=== PATIENT | male | born 1930 | race Caucasian/White ===

== ENCOUNTER 2018-05-09 21:21 | Inpatient (IN) | payer MEDICARE, MEDICAID ==
[2018-05-09 22:23] VITALS: BP 123/56
[2018-05-10] MEDS ORDERED: Sodium Chloride 0.9% 1,000 ML IV SCH (00:30)
[2018-05-10 04:45] LABS: MEAN CORPUSCULAR HEMOGLOBIN 26.6 pg (27.0-31.0); MEAN CORPUSCULAR HGB CONC 32.8 pg (28.0-36.0); MEAN PLATELET VOLUME 7.3 fl; PLATELET COUNT 344 Th/cmm (150-400); RED BLOOD COUNT 2.67 Mil/cmm (3.80-5.80); RED CELL DISTRIBUTION WIDTH 16.1 % (11.5-20.0); WHITE BLOOD COUNT 10.3 Th/cmm (4.8-10.8)
[2018-05-10 04:48] LABS: HEMATOCRIT 21.6 % (41.0-60); HEMOGLOBIN 7.1 gm/dL (12-16)
[2018-05-10 05:08] LABS: ALB/GLOB RATIO 0.8 (1.0-1.8); ALBUMIN 2.4 gm/dL (4.2-5.5); ALKALINE PHOSPHATASE 81 U/L (34-104); ANION GAP 10.8 (7.0-16.0); BILIRUBIN,TOTAL 0.2 mg/dL (0.3-1.0); BUN - UREA NITROGEN 19 mg/dL (7-25); CALCIUM SERUM 8.3 mg/dL (8.6-10.3); CARBON DIOXIDE 21.5 mEq/L (21.0-31.0); CHLORIDE 110 mEq/L (98-107); CREATININE - SERUM 0.8 mg/dL (0.7-1.3); GLUCOSE 115 mg/dL (70-105); POTASSIUM SERUM 4.3 mEq/L (3.5-5.1); SGOT 9 U/L (13-39); SGPT/ALT 7 U/L (7-52); SODIUM SERUM 138 mEq/L (136-145); TOTAL PROTEIN,SERUM 5.3 gm/dL (6.0-8.3)
[2018-05-10 05:13] LABS: LYMPHOCYTE 16 % (20-50); NEUTROPHILS 84 % (40-80); PLATELET ESTIMATE ADEQUATE (NORMAL)
--- NOTE | 2018-05-10 09:48 | Diagnostic Imaging Report ---
Portable chest x-ray HISTORY: Shortness of breath The heart is enlarged. No focal pulmonary processes. No hilar or mediastinal abnormalities. Degenerative changes noted in the spine. IMPRESSION: 1. Cardiomegaly 2. No acute focal pulmonary processes
--- NOTE | 2018-05-10 10:55 | Diagnostic Imaging Report ---
Bilateral upper extremity Doppler venous ultrasound exam HISTORY: Pain Sonographic sector images were obtained through the venous systems of both arms. Associated Doppler data was obtained. Exam is technically limited due to patient combativeness and lack of cooperation. The right internal jugular vein could not be evaluated due to overlying bandages. The exam of the right arm demonstrates patency of the right subclavian, axillary, brachial, basilic, cephalic veins. No thrombus. Normal compressibility. The left arm demonstrates patency of the venous system. No thrombus. Normal compressibility and augmentation responses. IMPRESSION: 1. Somewhat limited exam as noted above 2. No definite evidence of thrombophlebitis (see above)
--- NOTE | 2018-05-10 11:18 | History & Physical ---
ADMIT DATE: 05/10/2018 CHIEF COMPLAINT: Confusion and weakness. HISTORY OF PRESENT ILLNESS: The patient is a very nice long time patient of mine admitted to the intensive care unit of [facility] by transfer from [place] in [place]. Just a few days ago, the patient became more confused with low blood pressure in the [facility] and 911 was triggered. The patient subsequently was brought to [place] in [place] as it was close hospital for ____. The patient's troponin was negative and he was ruled out for a cardiac etiology for the hypotension in [place] Int[facility] and Intensive Care physician communicated with me before the patient was transferred here. His echocardiogram revealed ejection fraction of 50% with normal wall motion. The patient complained of no chest pain. Chest x-ray did reveal a probable right middle lobe infiltrate and the patient was started on IVPB antibiotics in [facility]. He required a pressor drip to maintain blood pressure. This is why he was admitted here Intensive Care Unit. The patient normally has mild hypertension yesterday. His blood pressure medication was held in [facility] due to low blood pressure. The patient also received 2 units of blood transfusion in [place] Intensive [facility] Unit. PAST MEDICAL HISTORY: Including pneumonia, COPD, mild Alzheimer disease, peripheral vascular disease, urinary tract infection, sepsis. PAST SURGICAL HISTORY: Denies significant past surgical history. MEDICATIONS: See medication reconciliation list. ALLERGIES: No known drug allergy. FAMILY HISTORY: Noncontributory. SOCIAL HISTORY: The patient smoked before, quit years ago. He is actually to young [place] woman whom they never lived together, but she is ____ area. The patient has no history of alcohol and IV drug abuse. REVIEW OF SYSTEMS: As per HPI. PHYSICAL EXAMINATION: GENERAL: Well-developed, thin male in no acute distress. SKIN: Warm. There is excoriation of the sacral area. VITAL SIGNS: Basically stable while on pressor drip. HEENT: Normocephalic, atraumatic. Pupils equal, round, react to light and accommodation. CHEST: Symmetrical. LUNGS: Few rhonchi in the right middle lobe. HEART: Normal sinus rhythm. S1, S2. ABDOMEN: Benign, soft, nontender. EXTREMITIES: No clubbing, cyanosis, edema. PSYCHIATRIC: Linear and logical. NEUROLOGICAL: Unremarkable. LABORATORY DATA: Ordered. ASSESSMENT AND PLAN: 1. Hypotension: Probably multifactorial, but the patient's white count was not high in [facility] according to the [place] physician, but anyway IV antibiotics were started. 2. Early pneumonia: Continue IVPB antibiotics. 3. Anemia: The patient already received 3 units per blood transfusion in [facility]. We will repeat CBC in the morning. 4. Altered level of consciousness due to metabolic encephalopathy and dementia. 5. Mild Alzheimer disease and recently diagnosed. 6. Weakness: Fall precaution. 7. Peripheral vascular disease: Continue statin and aspirin. 8. History of atrial fibrillation with rate controlled. 9. History of coronary artery disease, status post mild TN over a year ago, but the patient's troponin has been negative x 3 in [place]. 10. Continue ICU care. 11. History of upper extremity DVT: We will repeat duplex ultrasound to see if this has resolved. 12. DVT prophylaxis. [facility]# [id number]
[2018-05-10] MEDS: Ferrous Sulfate 325 MG TAB PO SCH (12:00)
[2018-05-10] MEDS ORDERED: Metoclopramide 5 mg/mL 2mL Vial IVP PRN (12:15)
[2018-05-10] MEDS ORDERED: Morphine Sulfate 2 mg/mL 1mL Syr IVP PRN ×2 (12:22→13:48)
[2018-05-10] MEDS ORDERED: Hydrocodone/APAP 5mg/325mg Tab PO PRN (12:23)
[2018-05-10] MEDS: Hydrocortisone Sodium Succ 100 mg Vial IVP SCH ×2 (17:15→20:17)
[2018-05-10] MEDS: Lactulose 10 Gm/15 mL 30mL UDC PO SCH ×2 (17:16→20:18)
--- NOTE | 2018-05-10 18:30 | Progress Notes ---
DATE: SUBJECTIVE: The patient is confused and requiring soft restraints in the Intensive Care Unit. OBJECTIVE: VITAL SIGNS: Basically stable while on pressor drip. HEENT: Normocephalic, atraumatic. Pupils equal, round, react to light. CHEST: Symmetrical lung. Few wheezing appreciated with rhonchi at right middle lobe. CARDIAC: Normal sinus rhythm. S1, S2. ABDOMEN: Benign, soft, nontender. EXTREMITIES: No clubbing, cyanosis, edema bilateral histologically. NEUROLOGICAL: Unremarkable. LABORATORY DATA: Reviewed, significant for anemia of hemoglobin 7.1, hematocrit 21.6. Platelet is normal. Troponin 0.03, which is normal. Albumin 2.4. ASSESSMENT AND PLAN: 1. Altered level of consciousness due to metabolic encephalopathy and dementia. We will observe closely. 2. Severe anemia. The patient has received blood transfusion 2 units in [place] just 2 days ago. We will repeat 1 unit PRBC and workup in progress. Hematology consultation with ____ is requested and greatly appreciated. 3. Hypotension: Continue on IVPB antibiotics. Blood culture ordered. We will adjust antibiotic accordingly. 4. Early pneumonia: Continue IVPB antibiotics. 5. Weakness: Fall precaution. 6. Anxiety: Ativan p.r.n. Soft restraint as needed. 7. Continue ICU care. 8. DVT prophylaxis. 9. History of recent bilateral upper extremity DVT: I have ordered to repeat duplex ultrasound to see if this has resolved. JOB# [id number]
[2018-05-11 05:05] LABS: HEMOGLOBIN 9.2 gm/dL (12-16); MEAN CELL VOLUME 82.8 fl (80-99); MEAN CORPUSCULAR HEMOGLOBIN 27.2 pg (27.0-31.0); MEAN CORPUSCULAR HGB CONC 32.9 pg (28.0-36.0); MEAN PLATELET VOLUME 7.8 fl; PLATELET COUNT 286 Th/cmm (150-400); RED BLOOD COUNT 3.39 Mil/cmm (3.80-5.80); RED CELL DISTRIBUTION WIDTH 15.6 % (11.5-20.0); WHITE BLOOD COUNT 5.9 Th/cmm (4.8-10.8)
[2018-05-11 05:24] LABS: ALB/GLOB RATIO 0.9 (1.0-1.8); ALBUMIN 2.6 gm/dL (4.2-5.5); ALKALINE PHOSPHATASE 92 U/L (34-104); ANION GAP 10.7 (7.0-16.0); BILIRUBIN,DIRECT 0.13 mg/dL (0.0-0.2); BILIRUBIN,TOTAL 0.4 mg/dL (0.3-1.0); BUN - UREA NITROGEN 15 mg/dL (7-25); CALCIUM SERUM 8.6 mg/dL (8.6-10.3); CARBON DIOXIDE 22.7 mEq/L (21.0-31.0); CHLORIDE 109 mEq/L (98-107); CREATININE - SERUM 0.8 mg/dL (0.7-1.3); GLUCOSE 128 mg/dL (70-105); PHOSPHOROUS 3.9 mg/dL (2.5-5.0); POTASSIUM SERUM 4.4 mEq/L (3.5-5.1); SGOT 13 U/L (13-39); SGPT/ALT 7 U/L (7-52); SODIUM SERUM 138 mEq/L (136-145); TOTAL PROTEIN,SERUM 5.5 gm/dL (6.0-8.3)
[2018-05-11 05:47] LABS: BAND NEUTROPHILE 4 % (0-10); LYMPHOCYTE 15 % (20-50); MONOCYTE 2 % (2-10); NEUTROPHILS 79 % (40-80); PLATELET ESTIMATE ADEQUATE (NORMAL)
[2018-05-11] MEDS: Hydrocortisone Sodium Succ 100 mg Vial IVP SCH ×3 (05:50→20:34)
[2018-05-11 06:06] LABS: RBC RETICULOCYTE COUNT 3.39 Mil/cmm
[2018-05-11 06:07] LABS: ABSOLUTE RETICULOCYTE 20.3 Th/cmm; CORRECTED RETICULOCYTE COUNT 0.4 % (0.5-1.5); RETICULOCYTES % COUNTED 0.6 % (0.5-1.5)
[2018-05-11 06:37] LABS: INR 1.08 (0.5-1.4); PROTHROMBIN TIME (TEST) 11.2 SECONDS (9.5-11.5)
[2018-05-11] MEDS: Lactulose 10 Gm/15 mL 30mL UDC PO SCH ×3 (08:29→20:48)
[2018-05-11] MEDS: Atorvastatin Calcium 10 MG TAB PO SCH (08:29)
[2018-05-11] MEDS: Aspirin 81mg Chewable Tab PO SCH (08:30)
[2018-05-11] MEDS: Magnesium Chloride EC 64mg Tab PO SCH (08:32)
[2018-05-11] MEDS: Sodium Chloride 0.9% 1,000 ML IV SCH ×2 (08:55→20:47)
[2018-05-11] MEDS: Ferrous Sulfate 325 MG TAB PO SCH (09:09)
[2018-05-11] MEDS: Pantoprazole 40 mg EC Tab PO SCH (13:22)
--- NOTE | 2018-05-11 23:39 | Internal Medicine Prog Note ---
Internal Medicine Subjective - Subjective Service Date: 05/11/18 Patient seen and examined:: with staff Patient is:: asleep, eyes closed, in bed Per staff patient has:: no adverse event Internal Medicine Objective - Results Result Diagrams: 05/11/18 04:45 05/11/18 04:45 Recent Labs: Laboratory Last Values WBC 5.9 Th/cmm (4.8-10.8) 05/11/18 04:45 RBC 3.39 Mil/cmm (3.80-5.80) L 05/11/18 04:45 Hgb 9.2 gm/dL (12-16) L 05/11/18 04:45 Hct 28.0 % (40.0-54.0) L 05/11/18 04:45 MCV 82.8 fl (80-99) 05/11/18 04:45 MCH 27.2 pg (27.0-31.0) 05/11/18 04:45 MCHC Differential 32.9 pg (28.0-36.0) 05/11/18 04:45 RDW 15.6 % (11.5-20.0) 05/11/18 04:45 Plt Count 286 Th/cmm (150-400) 05/11/18 04:45 MPV 7.8 fl 05/11/18 04:45 Add Manual Diff YES 05/11/18 04:45 Band Neutrophils % 4 % (0-10) 05/11/18 04:45 Neutrophils (Manual) 79 % (40-80) 05/11/18 04:45 Lymphocytes 15 % (20-50) L 05/11/18 04:45 Monocytes 2 % (2-10) 05/11/18 04:45 Platelet Estimate ADEQUATE (NORMAL) 05/11/18 04:45 Total Retics Counted 0.6 % (0.5-1.5) 05/11/18 04:45 Absolute Retic 20.3 Th/cmm 05/11/18 04:45 Corrected Retic Count 0.4 % (0.5-1.5) L 05/11/18 04:45 Plt Count 286 Th/cmm (150-750) 05/11/18 06:10 PT 11.2 SECONDS (9.5-11.5) 05/11/18 06:10 INR 1.08 (0.5-1.4) 05/11/18 06:10 PTT (Actin FS) 28.8 SECONDS (26.0-38.0) 05/11/18 06:10 Fibrinogen 348.0 mg/dL (200.0-400.0) 05/11/18 06:10 D-Dimer 979 ng/mL (100-400) H 05/11/18 06:10 Sodium 138 mEq/L (136-145) 05/11/18 04:45 Potassium 4.4 mEq/L (3.5-5.1) 05/11/18 04:45 Chloride 109 mEq/L (98-107) H 05/11/18 04:45 Carbon Dioxide 22.7 mEq/L (21.0-31.0) 05/11/18 04:45 Anion Gap 10.7 (7.0-16.0) 05/11/18 04:45 BUN 15 mg/dL (7-25) 05/11/18 04:45 Creatinine 0.8 mg/dL (0.7-1.3) 05/11/18 04:45 Est GFR ( Amer) TNP 05/11/18 04:45 Est GFR (Non-Af Amer) TNP 05/11/18 04:45 BUN/Creatinine Ratio 18.8 05/11/18 04:45 Glucose 128 mg/dL (70-105) H 05/11/18 04:45 POC Glucose 165 MG/DL (70-105) H 05/09/18 21:42 Calcium 8.6 mg/dL (8.6-10.3) 05/11/18 04:45 Phosphorus 3.9 mg/dL (2.5-5.0) 05/11/18 04:45 Magnesium 2.0 mg/dL (1.9-2.7) 05/11/18 04:45 Total Bilirubin 0.4 mg/dL (0.3-1.0) 05/11/18 04:45 Direct Bilirubin 0.13 mg/dL (0.0-0.2) 05/11/18 04:45 AST 13 U/L (13-39) 05/11/18 04:45 ALT 7 U/L (7-52) 05/11/18 04:45 Alkaline Phosphatase 92 U/L (34-104) 05/11/18 04:45 Troponin I 0.03 ng/mL (0.01-0.05) 05/10/18 04:35 Total Protein 5.5 gm/dL (6.0-8.3) L 05/11/18 04:45 Albumin 2.6 gm/dL (4.2-5.5) L 05/11/18 04:45 Globulin 2.9 gm/dL 05/11/18 04:45 Albumin/Globulin Ratio 0.9 (1.0-1.8) L 05/11/18 04:45 Stool Occult Blood POSITIVE (NEGATIVE) H 05/11/18 19:00 Blood Type A POSITIVE 05/10/18 08:10 Antibody Screen NEGATIVE 05/10/18 08:10 Crossmatch See Detail 05/10/18 08:10 - Physical Exam Vitals and I&O: Vital Signs Temp 97.8 F 05/11/18 19:00 Pulse 84 05/11/18 22:00 Resp 18 05/11/18 22:00 BP 117/45 05/11/18 22:00 Pulse Ox 98 05/11/18 22:00 Intake & Output 05/11/18 05/11/18 05/12/18 06:59 18:59 06:59 Intake Total 899 722 6505 Output Total 300 Balance 195 541 7028 Weight (lbs) 58.258 kg 58.831 kg Intake: Intake, IV Amount 978 519 4016 Piperacillin Sodium/ 200 Tazobact 3.375 gm In Sodium Chloride 0.9% 100 ml @ 100 mls/hr IV Q8HR [facility] Rx#:[id number] Piperacillin Sodium/ 50 Tazobact 3.375 gm In Sodium Chloride 0.9% 50 ml @ 100 mls/hr IV Q8HR [facility] Rx#:[id number] Sodium Chloride 0.9% 1, 1000 000 ml @ 100 mls/hr IV . Q10H [facility] Rx#:[id number] Vancomycin HCl 1.25 gm In 250 Sodium Chloride 0.9% 250 ml @ 165 mls/hr IV Q24H [facility] Rx#:[id number] Oral 420 Output: Urine 300 Other: # Voids 2 3 # Bowel Movements 2 3 Stool Characteristics Soft Liquid Brown Green Weight Source Bedscale Bedscale Active Medications: Current Medications Acetaminophen (Tylenol) 650 mg PO Q4H PRN PRN Reason: Pain Or Fever above 101 Stop: 07/09/18 12:24 Acetaminophen/Hydrocodone Bitart ([place] 5mg/325mg) 1 tab PO Q4H PRN PRN Reason: Pain (Moderate) Stop: 07/09/18 12:22 Amiodarone HCl (Cordarone) 150 mg IV STAT PRN PRN PRN Reason: Cardiac Arrhythmia Stop: 07/09/18 12:26 Aspirin (Aspirin Chewable) 81 mg PO DAILY [facility] Stop: 07/10/18 08:59 Last Admin: 05/11/18 08:30 Dose: 81 mg Atorvastatin Calcium (Lipitor) 10 mg PO DAILY BR[facility]; Protocol Stop: 07/10/18 08:59 Last Admin: 05/11/18 08:29 Dose: 10 mg Atropine Sulfate (Atropine Syringe) 0.5 mg IVP PRN PRN PRN Reason: Cardiac Arrhythmia Stop: 07/09/18 12:34 Donepezil HCl (Aricept) 5 mg PO HS [facility] Stop: 07/09/18 20:59 Last Admin: 05/11/18 20:35 Dose: 5 mg Ferrous Sulfate (Iron) 325 mg PO DAILY [facility] Stop: 07/09/18 11:59 Last Admin: 05/11/18 09:09 Dose: 325 mg Heparin Sodium (Porcine) (Heparin) 5,000 units SUBQ Q12HR [facility] Stop: 07/09/18 20:59 Last Admin: 05/11/18 20:35 Dose: 5,000 units Hydrocortisone Sodium Succinate (Solu-Cortef) 100 mg IVP Q8HR [facility] Stop: 07/09/18 12:59 Last Admin: 05/11/18 20:34 Dose: 100 mg Norepinephrine Bitartrate 8 mg (/ Dextrose) 258 mls @ 0 mls/hr IV TITR PRN; Protocol PRN Reason: To Keep SBP Above 90 Stop: 07/09/18 00:36 Last Titration: 05/10/18 14:15 Dose: 0 mcg/min, 0 mls/hr Sodium Chloride (Nacl 0.9%) 1,000 mls @ 100 mls/hr IV .Q10H [facility] Stop: 07/09/18 12:52 Last Admin: 05/11/18 20:47 Dose: 100 mls/hr Vancomycin HCl 1.25 gm/ Sodium (Chloride) 250 mls @ 165 mls/hr IV Q24H [facility] Stop: 07/09/18 15:59 Last Infusion: 05/11/18 17:33 Dose: Infused Piperacillin Sod/Tazobactam (Sod 3.375 gm/ Sodium Chloride) 50 mls @ 100 mls/ hr IV Q8HR [facility] Stop: 07/09/18 12:59 Last Admin: 05/11/18 20:34 Dose: 100 mls/hr Lactulose (Cephulac) 20 gm PO TID [facility] Stop: 07/09/18 13:59 Last Admin: 05/11/18 20:48 Dose: Not Given Lorazepam (Ativan) 0.5 mg IV Q6HR PRN; Protocol PRN Reason: Agitation Stop: 07/09/18 00:33 Last Admin: 05/10/18 01:35 Dose: 0.5 mg Lorazepam (Ativan) 0.5 mg PO Q6HR PRN; Protocol PRN Reason: Agitation Stop: 07/09/18 12:10 Magnesium Chloride (Slow-Mag) 1 ect PO DAILY [facility] Stop: 07/10/18 08:59 Last Admin: 05/11/18 08:32 Dose: 1 ect Metoclopramide HCl (Reglan) 10 mg IVP Q8HR PRN PRN Reason: Abdominal Pain Stop: 07/09/18 12:14 Miscellaneous (Vancomycin Iv Per Pharmacy) 1 ea MC DAILY [facility] Stop: 07/10/18 08:59 Morphine Sulfate (Morphine) 1 mg IVP Q4H PRN PRN Reason: Severe Pain Stop: 07/09/18 13:47 Ondansetron HCl (Zofran) 4 mg IV Q8H PRN PRN Reason: Nausea / Vomiting Stop: 07/09/18 12:48 Pantoprazole Sodium (Protonix) 40 mg PO DAILY [facility] Stop: 07/10/18 11:44 Last Admin: 05/11/18 13:22 Dose: 40 mg General: lethargic, congested HEENT: NC/AT Neck: Supple, No JVD, No thyromegaly, No LAD Lungs: other (few wheezing bl.) Cardiovascular: other (iregular.) Abdomen: soft, non-tender, non-distended, positive bowel sound Extremities: clear - Procedures Procedures: Procedures Procedure Code Date TRANSFUSE NONAUT RED BLOOD CELLS IN PERIPH VEIN, PERC 43541T0 05/09/18 Internal Medicine Assmt/Plan - Assessment Assessment: sepsis: required Levaphed drip earlier today. Rt Scrotal abscess with drainage: G/s, C&S ordered; Surgical consult appreciated. PNA: IVPB ABX. ALOC: on and off, observe. Anemia: OB +x3; s/p PRBC. Hypotension: better. CAD: s/p GA h/o A. Fib: rate controlled. PVD Nutritional Asmnt/Malnutr-PDOC - Dietary Evaluation Malnutrition Findings (Please click <Entered> for more info): Nutritional Asmnt/Malnutrition Start: 05/10/18 14: 28 Text: Status: Complete Freq: Protocol: Document 05/10/18 14:29 LCLAURYG (Rec: 05/10/18 14:39 LCLAURYG [id number]) Nutritional Asmnt/Malnutrition Patient General Information Nutritional Screening High Risk Diagnosis PNA, hypotension Pertinent Medical Hx/Surgical Hx PNA, COPD, mild alzheimer, PVD , UTI, sepsis Subjective Information Consult received for Tripp score 12. Pt seen resting in bed at time of visit. Per RN, pt is on levophed. pt likes to eat, consumed about 50% of breakfast this morning. Pt took long time to chew food per RN. Current Diet Order/ Nutrition Support cardiac, soft Pertinent Medications Iron, cephulac, piperacillin, nacl 0.9%, vancomycin Pertinent Labs 05/10 Cl 110, glucose 115, Ca 8 .3, alb 2.4 Nutritional Hx/Data Height 1.63 m Height (Calculated Centimeters) 162.6 Current Weight (lbs) 58.967 kg Weight (Calculated Kilograms) 59.0 Weight (Calculated Grams) 43205.0 [place] Body Weight 130 Body Mass Index (BMI) 22.3 Weight Status Approriate GI Symptoms GI Symptoms None Last BM not indicated Difficult in: None Skin Integrity/Comment: scar from old pressure ulcer to sacrum Tripp score 12 Current %PO Fair (50-74%) Estimated Nutritional Goals BEE in Kcals: Using Current wt Calories/Kcals/Kg 27-32 Kcals Calculated 6399-4021 Protein: Using Current wt Protein g/k-1.2 Protein Calculated 59-71 Fluid: ml 1593-1888ml (1ml/kcal) Nutritional Problem 2. Problem Problem increased nutrition needs Etiology increased metabolic demand Signs/Symptoms: dx of PNA 1. Problem Problem altered nutrition relatedl abs Etiology electrolytes imbalance Signs/Symptoms: cl 110, Ca 8.3 Malnutrition Alert Is there a minimum of two criteria No selected? Query Text:Check all the applicable criteria. A minimum of two criteria are recommended for diagnosis of either severe or non-severe malnutrition. Malnutrition Related to Morbid Obesity Malnutrition related to morbid obesity No Intervention/Recommendation Comments 1. Continue with cardiac diet as ordered. Recommend [facility] soft ground diet d/g pt having difficulty of chewing. REENA Trin[place] notified. 2. Monitor PO intake, wt, labs and skin integrity 3. F/U as high risk in 2-3 days, 05/12-05/13 Expected Outcomes/Goals Expected Outcomes/Goals 1. PO intake to meet at least 75% of nutritional needs. 2. Wt stability, skin to remain intact, labs to approach WNL.
[2018-05-12] MEDS: Hydrocortisone Sodium Succ 100 mg Vial IVP SCH ×3 (04:45→20:37)
[2018-05-12 04:53] LABS: HEMATOCRIT 25.6 % (41.0-60); HEMOGLOBIN 8.6 gm/dL (12-16); MEAN CELL VOLUME 81.1 fl (80-99); MEAN CORPUSCULAR HEMOGLOBIN 27.4 pg (27.0-31.0); MEAN CORPUSCULAR HGB CONC 33.8 pg (28.0-36.0); MEAN PLATELET VOLUME 6.9 fl; PLATELET COUNT 332 Th/cmm (150-400); RED BLOOD COUNT 3.15 Mil/cmm (3.80-5.80); RED CELL DISTRIBUTION WIDTH 16.2 % (11.5-20.0); WHITE BLOOD COUNT 8.5 Th/cmm (4.8-10.8)
[2018-05-12 05:14] LABS: ALB/GLOB RATIO 0.9 (1.0-1.8); ALBUMIN 2.3 gm/dL (4.2-5.5); ALKALINE PHOSPHATASE 80 U/L (34-104); ANION GAP 10.7 (7.0-16.0); BILIRUBIN,TOTAL 0.2 mg/dL (0.3-1.0); BUN - UREA NITROGEN 18 mg/dL (7-25); CALCIUM SERUM 8.3 mg/dL (8.6-10.3); CARBON DIOXIDE 21.8 mEq/L (21.0-31.0); CHLORIDE 113 mEq/L (98-107); CREATININE - SERUM 0.9 mg/dL (0.7-1.3); GLUCOSE 137 mg/dL (70-105); POTASSIUM SERUM 4.5 mEq/L (3.5-5.1); SGOT 13 U/L (13-39); SGPT/ALT 10 U/L (7-52); SODIUM SERUM 141 mEq/L (136-145); TOTAL PROTEIN,SERUM 4.9 gm/dL (6.0-8.3)
[2018-05-12 05:25] LABS: LYMPHOCYTE 9 % (20-50); NEUTROPHILS 91 % (40-80); PLATELET ESTIMATE ADEQUATE (NORMAL)
[2018-05-12 07:07] LABS: IRON LC 17 ug/dL (38-169); TIBC (LC) 234 ug/dL (250-450); UIBC 217 ug/dL (111-343)
[2018-05-12] MEDS: Sodium Chloride 0.9% 1,000 ML IV SCH (08:00)
[2018-05-12] MEDS: Magnesium Chloride EC 64mg Tab PO SCH (08:40)
[2018-05-12] MEDS: Atorvastatin Calcium 10 MG TAB PO SCH (08:41)
[2018-05-12] MEDS: Aspirin 81mg Chewable Tab PO SCH (08:41)
[2018-05-12] MEDS: Ferrous Sulfate 325 MG TAB PO SCH (08:41)
[2018-05-12] MEDS: Pantoprazole 40 mg EC Tab PO SCH (08:41)
--- NOTE | 2018-05-12 10:18 | History & Physical ---
ADMIT DATE: 05/12/2018 GASTROENTEROLOGY CONSULTATION REQUESTING PHYSICIAN: Dr. Arben Arriaga REASON FOR CONSULTATION: Anemia with stool OB positivity. HISTORY OF PRESENT ILLNESS: This is an 88-year-old male who is a subacute facility resident, admitted for hypertension and pneumonia. He has underlying dementia. We were asked to see him for anemia and OB positivity. He is a poor historian, but denies any abdominal pain, nausea, vomiting, diarrhea or constipation. There has been no witnessed GI bleeding. It is unclear when he has had a previous endoscopy or colonoscopy. PAST MEDICAL HISTORY: As above. Also notable for hypertension, atrial fibrillation, COPD, muscle weakness, chronic anemia, Alzheimer dementia, hyperlipidemia, and aortic atherosclerosis. He may also have chronic constipation. MEDICATIONS: Here are Tylenol, [place], amiodarone p.r.n., baby aspirin, Lipitor, atropine p.r.n., Aricept, iron once daily, subcutaneous heparin, hydrocortisone IV q.8h., lactulose t.i.d., Ativan p.r.n., Slow-Mag, Reglan p.r.n., IV vancomycin, IV morphine p.r.n., norepinephrine drip as needed, Zofran p.r.n., Protonix once daily, Zosyn and IV fluids. ALLERGIES: No known drug allergies. SOCIAL HISTORY: No recent tobacco, alcohol or drugs. FAMILY HISTORY: Noncontributory. REVIEW OF SYSTEMS: A comprehensive 12-point review of system was conducted and is only positive for those signs and symptoms present in history of present illness. PHYSICAL EXAMINATION: VITAL SIGNS: Temperature of 97.7, blood pressure 109/34, pulse of 66, respirations 12, O2 sat 98% on room air. GENERAL: The patient is a well-developed elderly male who appears awake, in no acute distress. HEENT: Sclerae nonicteric. Oropharynx is clear. CARDIOVASCULAR: Irregular rate, irregular rhythm. Normal S1, S2 with no murmurs. LUNGS: With occasional rhonchi at the base. ABDOMEN: Soft, nontender, nondistended. EXTREMITIES: No clubbing, cyanosis or edema. RECTAL: Deferred. LABORATORY AND IMAGING DATA: WBC 8.5, hemoglobin 8.6, MCV is 81, platelet count is 332, INR is 1.1, creatinine 0.9, iron is 17, percent saturation is 7 which is low. Liver enzymes are normal. Albumin is 2.3. Stool OB is positive x 3. IMPRESSION: 1. Anemia, multifactorial with stool occult blood positivity, rule out upper versus lower gastrointestinal source, could be from peptic ulcer disease, esophagitis, gastritis, angiodysplasia, polyp, neoplasm or hemorrhoids. 2. Recent septic shock with pneumonia, now improved. 3. History of hypertension. 4. History of atrial fibrillation. 5. History of chronic obstructive pulmonary disease. 6. History of dementia. RECOMMENDATIONS: 1. Upper endoscopy and colonoscopy has been offered to the patient, but he refuses, but he may not be a reliable historian or decision maker. We have left a message for the patient's son and await his response regarding previous endoscopic workup and need to do it again if needed. 2. Monitor hemoglobin, transfuse as necessary. 3. Oral diet as tolerated. 4. Protonix. 5. Stool softeners as needed. Thank you, Dr. Arriaga for involving us in the care of your patient. If you have any further questions, please call us. [facility]# [id number]
[2018-05-12] MEDS: Lactulose 10 Gm/15 mL 30mL UDC PO SCH ×3 (11:07→20:09)
[2018-05-12] MEDS: Sodium Ferric Gluconate 125 MG in Sodium Chloride 0.9% 100 ML IV SCH (14:14)
--- NOTE | 2018-05-12 23:44 | Internal Medicine Prog Note ---
Internal Medicine Subjective - Subjective Service Date: 05/12/18 Patient seen and examined:: with staff Patient is:: asleep, eyes closed, in bed Per staff patient has:: no adverse event Internal Medicine Objective - Results Result Diagrams: 05/12/18 04:40 05/12/18 04:40 Recent Labs: Laboratory Last Values WBC 8.5 Th/cmm (4.8-10.8) 05/12/18 04:40 RBC 3.15 Mil/cmm (3.80-5.80) L 05/12/18 04:40 Hgb 8.6 gm/dL (12-16) L 05/12/18 04:40 Hct 25.6 % (41.0-60) L 05/12/18 04:40 MCV 81.1 fl (80-99) 05/12/18 04:40 MCH 27.4 pg (27.0-31.0) 05/12/18 04:40 MCHC Differential 33.8 pg (28.0-36.0) 05/12/18 04:40 RDW 16.2 % (11.5-20.0) 05/12/18 04:40 Plt Count 332 Th/cmm (150-400) 05/12/18 04:40 MPV 6.9 fl 05/12/18 04:40 Add Manual Diff YES 05/12/18 04:40 Band Neutrophils % 4 % (0-10) 05/11/18 04:45 Neutrophils (Manual) 91 % (40-80) H 05/12/18 04:40 Lymphocytes 9 % (20-50) L 05/12/18 04:40 Monocytes 2 % (2-10) 05/11/18 04:45 Platelet Estimate ADEQUATE (NORMAL) 05/12/18 04:40 Total Retics Counted 0.6 % (0.5-1.5) 05/11/18 04:45 Absolute Retic 20.3 Th/cmm 05/11/18 04:45 Corrected Retic Count 0.4 % (0.5-1.5) L 05/11/18 04:45 Plt Count 286 Th/cmm (150-750) 05/11/18 06:10 PT 11.2 SECONDS (9.5-11.5) 05/11/18 06:10 INR 1.08 (0.5-1.4) 05/11/18 06:10 PTT (Actin FS) 28.8 SECONDS (26.0-38.0) 05/11/18 06:10 Fibrinogen 348.0 mg/dL (200.0-400.0) 05/11/18 06:10 D-Dimer 979 ng/mL (100-400) H 05/11/18 06:10 Sodium 141 mEq/L (136-145) 05/12/18 04:40 Potassium 4.5 mEq/L (3.5-5.1) 05/12/18 04:40 Chloride 113 mEq/L (98-107) H 05/12/18 04:40 Carbon Dioxide 21.8 mEq/L (21.0-31.0) 05/12/18 04:40 Anion Gap 10.7 (7.0-16.0) 05/12/18 04:40 BUN 18 mg/dL (7-25) 05/12/18 04:40 Creatinine 0.9 mg/dL (0.7-1.3) 05/12/18 04:40 Est GFR ( Amer) TNP 05/12/18 04:40 Est GFR (Non-Af Amer) TNP 05/12/18 04:40 BUN/Creatinine Ratio 20.0 05/12/18 04:40 Glucose 137 mg/dL (70-105) H 05/12/18 04:40 POC Glucose 165 MG/DL (70-105) H 05/09/18 21:42 Calcium 8.3 mg/dL (8.6-10.3) L 05/12/18 04:40 Phosphorus 3.9 mg/dL (2.5-5.0) 05/11/18 04:45 Magnesium 2.0 mg/dL (1.9-2.7) 05/11/18 04:45 Iron 17 ug/dL (38-169) L 05/11/18 04:45 TIBC 234 ug/dL (250-450) L 05/11/18 04:45 Iron Saturation 7 % (15-55) L 05/11/18 04:45 Unsaturated IBC 217 ug/dL (111-343) 05/11/18 04:45 Ferritin 76 ng/mL (30-400) 05/11/18 04:45 Total Bilirubin 0.2 mg/dL (0.3-1.0) L 05/12/18 04:40 Direct Bilirubin 0.13 mg/dL (0.0-0.2) 05/11/18 04:45 AST 13 U/L (13-39) 05/12/18 04:40 ALT 10 U/L (7-52) 05/12/18 04:40 Alkaline Phosphatase 80 U/L (34-104) 05/12/18 04:40 Troponin I 0.03 ng/mL (0.01-0.05) 05/10/18 04:35 Total Protein 4.9 gm/dL (6.0-8.3) L 05/12/18 04:40 Albumin 2.3 gm/dL (4.2-5.5) L 05/12/18 04:40 Globulin 2.6 gm/dL 05/12/18 04:40 Albumin/Globulin Ratio 0.9 (1.0-1.8) L 05/12/18 04:40 Vitamin B12 982 pg/mL (232-1245) 05/11/18 04:45 Folic Acid 12.7 ng/mL (>3.0) 05/11/18 04:45 Stool Occult Blood POSITIVE (NEGATIVE) H 05/11/18 19:00 Vancomycin Trough 14.1 ug/mL (5-10) H 05/12/18 15:10 Blood Type A POSITIVE 05/10/18 08:10 Antibody Screen NEGATIVE 05/10/18 08:10 Crossmatch See Detail 05/10/18 08:10 - Physical Exam Vitals and I&O: Vital Signs Temp 98.6 F 05/12/18 20:00 Pulse 90 05/12/18 20:00 Resp 18 05/12/18 20:00 BP 93/48 05/12/18 20:00 Pulse Ox 96 05/12/18 20:00 Intake & Output 05/12/18 05/12/18 05/13/18 06:59 18:59 06:59 Intake Total 2500 410 50 Output Total 400 Balance 2500 10 50 Weight (lbs) 58.967 kg 58.967 kg Intake: Intake, IV Amount 2100 410 50 Piperacillin Sodium/ 100 50 50 Tazobact 3.375 gm In Sodium Chloride 0.9% 50 ml @ 100 mls/hr IV Q8HR [facility] Rx#:[id number] Sodium Chloride 0.9% 1, 2000 000 ml @ 100 mls/hr IV . Q10H [facility] Rx#:[id number] Sodium Ferric Gluconate 110 125 mg In Sodium Chloride 0.9% 100 ml @ 100 mls/hr IV DAILY [facility] Rx#: [id number] Vancomycin HCl 1.25 gm In 250 Sodium Chloride 0.9% 250 ml @ 165 mls/hr IV Q24H [facility] Rx#:[id number] Oral 400 Output: Urine 400 Other: # Voids 3 # Bowel Movements 2 1 Stool Characteristics Soft Soft Brown Brown Green Green Weight Source Bedscale Bedscale Active Medications: Current Medications Acetaminophen (Tylenol) 650 mg PO Q4H PRN PRN Reason: Pain Or Fever above 101 Stop: 07/09/18 12:24 Acetaminophen/Hydrocodone Bitart ([place] 5mg/325mg) 1 tab PO Q4H PRN PRN Reason: Pain (Moderate) Stop: 07/09/18 12:22 Amiodarone HCl (Cordarone) 150 mg IV STAT PRN PRN PRN Reason: Cardiac Arrhythmia Stop: 07/09/18 12:26 Aspirin (Aspirin Chewable) 81 mg PO DAILY [facility] Stop: 07/10/18 08:59 Last Admin: 05/12/18 08:41 Dose: 81 mg Atorvastatin Calcium (Lipitor) 10 mg PO DAILY [facility]; Protocol Stop: 07/10/18 08:59 Last Admin: 05/12/18 08:41 Dose: 10 mg Atropine Sulfate (Atropine Syringe) 0.5 mg IVP PRN PRN PRN Reason: Cardiac Arrhythmia Stop: 07/09/18 12:34 Donepezil HCl (Aricept) 5 mg PO HS [facility] Stop: 07/09/18 20:59 Last Admin: 05/12/18 20:37 Dose: 5 mg Ferrous Sulfate (Iron) 325 mg PO DAILY [facility] Stop: 07/09/18 11:59 Last Admin: 05/12/18 08:41 Dose: 325 mg Heparin Sodium (Porcine) (Heparin) 5,000 units SUBQ Q12HR [facility] Stop: 07/09/18 20:59 Last Admin: 05/12/18 20:35 Dose: 5,000 units Hydrocortisone Sodium Succinate (Solu-Cortef) 100 mg IVP Q8HR [facility] Stop: 07/09/18 12:59 Last Admin: 05/12/18 20:37 Dose: 100 mg Norepinephrine Bitartrate 8 mg (/ Dextrose) 258 mls @ 0 mls/hr IV TITR PRN; Protocol PRN Reason: To Keep SBP Above 90 Stop: 07/09/18 00:36 Last Titration: 05/10/18 14:15 Dose: 0 mcg/min, 0 mls/hr Sodium Chloride (Nacl 0.9%) 1,000 mls @ 100 mls/hr IV .Q10H [facility] Stop: 07/09/18 12:52 Last Admin: 05/12/18 08:00 Dose: 100 mls/hr Vancomycin HCl 1.25 gm/ Sodium (Chloride) 250 mls @ 165 mls/hr IV Q24H [facility] Stop: 07/09/18 15:59 Last Infusion: 05/12/18 17:30 Dose: Infused Piperacillin Sod/Tazobactam (Sod 3.375 gm/ Sodium Chloride) 50 mls @ 100 mls/ hr IV Q8HR [facility] Stop: 07/09/18 12:59 Last Infusion: 05/12/18 21:10 Dose: Infused Ferric Sodium Gluconate Complex 125 mg/ Sodium Chloride 110 mls @ 100 mls/hr IV DAILY [facility] Stop: 07/11/18 13:29 Last Infusion: 05/12/18 15:20 Dose: Infused Lactulose (Cephulac) 20 gm PO TID [facility] Stop: 07/09/18 13:59 Last Admin: 05/12/18 20:09 Dose: Not Given Lorazepam (Ativan) 0.5 mg IV Q6HR PRN; Protocol PRN Reason: Agitation Stop: 07/09/18 00:33 Last Admin: 05/10/18 01:35 Dose: 0.5 mg Lorazepam (Ativan) 0.5 mg PO Q6HR PRN; Protocol PRN Reason: Agitation Stop: 07/09/18 12:10 Magnesium Chloride (Slow-Mag) 1 ect PO DAILY [facility] Stop: 07/10/18 08:59 Last Admin: 05/12/18 08:40 Dose: 1 ect Metoclopramide HCl (Reglan) 10 mg IVP Q8HR PRN PRN Reason: Abdominal Pain Stop: 07/09/18 12:14 Miscellaneous (Vancomycin Iv Per Pharmacy) 1 ea [facility] DAILY [facility] Stop: 07/10/18 08:59 Morphine Sulfate (Morphine) 1 mg IVP Q4H PRN PRN Reason: Severe Pain Stop: 07/09/18 13:47 Ondansetron HCl (Zofran) 4 mg IV Q8H PRN PRN Reason: Nausea / Vomiting Stop: 07/09/18 12:48 Pantoprazole Sodium (Protonix) 40 mg PO DAILY [facility] Stop: 07/10/18 11:44 Last Admin: 05/12/18 08:41 Dose: 40 mg General: lethargic, congested HEENT: NC/AT Neck: Supple, No JVD, No thyromegaly, No LAD Lungs: other (few wheezing bl.) Cardiovascular: other (iregular.) Abdomen: soft, non-tender, non-distended, positive bowel sound Extremities: clear - Procedures Procedures: Procedures Procedure Code Date TRANSFUSE NONAUT RED BLOOD CELLS IN PERIPH VEIN, [facility] 21285O7 05/09/18 Internal Medicine Assmt/Plan - Assessment Assessment: Hypotension: close monitoring in ICU. sepsis: required Levaphed drip earlier today. Rt Scrotal abscess with drainage: G/s, C&S ordered; Surgical consult appreciated. PNA: IVPB ABX. ALOC: on and off, observe. Anemia: OB +x3; s/p PRBC. CAD: s/p [place] h/o A. Fib: rate controlled. PVD Nutritional Asmnt/Malnutr-PDOC - Dietary Evaluation Malnutrition Findings (Please click <Entered> for more info): Nutritional Asmnt/Malnutrition Start: 05/10/18 14: 28 Text: Status: Complete Freq: Protocol: Document 05/10/18 14:29 LCHENG (Rec: 05/10/18 14:39 LAURY [id number]) Nutritional Asmnt/Malnutrition Patient General Information Nutritional Screening High Risk Diagnosis PNA, hypotension Pertinent Medical Hx/Surgical Hx PNA, COPD, mild alzheimer, PVD , UTI, sepsis Subjective Information Consult received for Tripp score 12. Pt seen resting in bed at time of visit. Per RN, pt is on levophed. pt likes to eat, consumed about 50% of breakfast this morning. Pt took long time to chew food per RN. 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 Problem Problem increased nutrition needs Etiology increased metabolic demand Signs/Symptoms: dx of PNA 1. Problem Problem altered nutrition relatedl abs Etiology electrolytes imbalance Signs/Symptoms: cl 110, Ca 8.3 Malnutrition Alert Is there a minimum of two criteria No selected? Query Text:Check all the applicable criteria. A minimum of two criteria are recommended for diagnosis of either severe or non-severe malnutrition. Malnutrition Related to Morbid Obesity Malnutrition related to morbid obesity No Intervention/Recommendation Comments 1. Continue with cardiac diet as ordered. Recommend mech soft ground diet d/g pt having difficulty of chewing. REENA Trinidad notified. 2. Monitor PO intake, wt, labs and skin integrity 3. F/U as high risk in 2-3 days, 05/12-05/13 Expected Outcomes/Goals Expected Outcomes/Goals 1. PO intake to meet at least 75% of nutritional needs. 2. Wt stability, skin to remain intact, labs to approach WNL.
[2018-05-13] MEDS: Hydrocortisone Sodium Succ 100 mg Vial IVP SCH ×3 (04:42→21:20)
[2018-05-13 05:55] LABS: HEMATOCRIT 26.3 % (41.0-60); HEMOGLOBIN 8.6 gm/dL (12-16); MEAN CELL VOLUME 82.6 fl (80-99); MEAN CORPUSCULAR HEMOGLOBIN 27.1 pg (27.0-31.0); MEAN CORPUSCULAR HGB CONC 32.8 pg (28.0-36.0); MEAN PLATELET VOLUME 7.3 fl; PLATELET COUNT 325 Th/cmm (150-400); RED BLOOD COUNT 3.19 Mil/cmm (3.80-5.80); RED CELL DISTRIBUTION WIDTH 16.5 % (11.5-20.0); WHITE BLOOD COUNT 9.2 Th/cmm (4.8-10.8)
[2018-05-13 06:19] LABS: ANION GAP 10.2 (7.0-16.0); BUN - UREA NITROGEN 20 mg/dL (7-25); CARBON DIOXIDE 20.5 mEq/L (21.0-31.0); CHLORIDE 110 mEq/L (98-107); CREATININE - SERUM 0.9 mg/dL (0.7-1.3); GLUCOSE 116 mg/dL (70-105); POTASSIUM SERUM 3.7 mEq/L (3.5-5.1); SODIUM SERUM 137 mEq/L (136-145)
[2018-05-13 07:39] LABS: NEUTROPHILS 86 % (40-80)
[2018-05-13 07:40] LABS: BAND NEUTROPHILE 5 % (0-10); BASOPHIL 0 % (0-3); EOSINOPHIL 0 % (0-5); LYMPHOCYTE 8 % (20-50); MONOCYTE 1 % (2-10); PLATELET ESTIMATE ADEQUATE (NORMAL)
[2018-05-13 08:49] LABS: ABSOLUTE RETICULOCYTE 38.3 Th/cmm; CORRECTED RETICULOCYTE COUNT 0.7 % (0.5-1.5); HEMATOCRIT 26.3 % (40.0-54.0); RBC RETICULOCYTE COUNT 3.19 Mil/cmm; RETICULOCYTES % COUNTED 1.2 % (0.5-1.5)
[2018-05-13] MEDS: Lactulose 10 Gm/15 mL 30mL UDC PO SCH ×3 (09:15→21:20)
[2018-05-13] MEDS: Magnesium Chloride EC 64mg Tab PO SCH (09:20)
[2018-05-13] MEDS: Pantoprazole 40 mg EC Tab PO SCH (09:20)
[2018-05-13] MEDS: Aspirin 81mg Chewable Tab PO SCH (09:20)
[2018-05-13] MEDS: Ferrous Sulfate 325 MG TAB PO SCH (09:20)
[2018-05-13] MEDS: Atorvastatin Calcium 10 MG TAB PO SCH (09:21)
--- NOTE | 2018-05-13 09:29 | GI Progress Note ---
Subjective - Review of Systems Service Date: 05/13/18 Subjective: EVENTS NOTED. Objective - Results Result Diagrams: 05/13/18 05:40 05/13/18 05:40 Recent Labs: Laboratory Last Values WBC 9.2 Th/cmm (4.8-10.8) 05/13/18 05:40 RBC 3.19 Mil/cmm (3.80-5.80) L 05/13/18 05:40 Hgb 8.6 gm/dL (12-16) L 05/13/18 05:40 Hct 26.3 % (40.0-54.0) L 05/13/18 05:40 MCV 82.6 fl (80-99) 05/13/18 05:40 MCH 27.1 pg (27.0-31.0) 05/13/18 05:40 MCHC Differential 32.8 pg (28.0-36.0) 05/13/18 05:40 RDW 16.5 % (11.5-20.0) 05/13/18 05:40 Plt Count 325 Th/cmm (150-400) 05/13/18 05:40 MPV 7.3 fl 05/13/18 05:40 Add Manual Diff YES 05/13/18 05:40 Band Neutrophils % 5 % (0-10) 05/13/18 05:40 Neutrophils (Manual) 86 % (40-80) H 05/13/18 05:40 Lymphocytes 8 % (20-50) L 05/13/18 05:40 Monocytes 1 % (2-10) L 05/13/18 05:40 Eosinophils 0 % (0-5) 05/13/18 05:40 Basophils 0 % (0-3) 05/13/18 05:40 Platelet Estimate ADEQUATE (NORMAL) 05/13/18 05:40 Total Retics Counted 1.2 % (0.5-1.5) 05/13/18 05:40 Absolute Retic 38.3 Th/cmm 05/13/18 05:40 Corrected Retic Count 0.7 % (0.5-1.5) 05/13/18 05:40 Plt Count 286 Th/cmm (150-750) 05/11/18 06:10 PT 11.2 SECONDS (9.5-11.5) 05/11/18 06:10 INR 1.08 (0.5-1.4) 05/11/18 06:10 PTT (Actin FS) 28.8 SECONDS (26.0-38.0) 05/11/18 06:10 Fibrinogen 348.0 mg/dL (200.0-400.0) 05/11/18 06:10 D-Dimer 979 ng/mL (100-400) H 05/11/18 06:10 Sodium 137 mEq/L (136-145) 05/13/18 05:40 Potassium 3.7 mEq/L (3.5-5.1) 05/13/18 05:40 Chloride 110 mEq/L (98-107) H 05/13/18 05:40 Carbon Dioxide 20.5 mEq/L (21.0-31.0) L 05/13/18 05:40 Anion Gap 10.2 (7.0-16.0) 05/13/18 05:40 BUN 20 mg/dL (7-25) 05/13/18 05:40 Creatinine 0.9 mg/dL (0.7-1.3) 05/13/18 05:40 Est GFR ( Amer) TNP 05/13/18 05:40 Est GFR (Non-Af Amer) TNP 05/13/18 05:40 BUN/Creatinine Ratio 22.2 05/13/18 05:40 Glucose 116 mg/dL (70-105) H 05/13/18 05:40 POC Glucose 165 MG/DL (70-105) H 05/09/18 21:42 Calcium 8.0 mg/dL (8.6-10.3) L 05/13/18 05:40 Phosphorus 3.9 mg/dL (2.5-5.0) 05/11/18 04:45 Magnesium 2.0 mg/dL (1.9-2.7) 05/11/18 04:45 Iron 17 ug/dL (38-169) L 05/11/18 04:45 TIBC 234 ug/dL (250-450) L 05/11/18 04:45 Iron Saturation 7 % (15-55) L 05/11/18 04:45 Unsaturated IBC 217 ug/dL (111-343) 05/11/18 04:45 Ferritin 76 ng/mL (30-400) 05/11/18 04:45 Total Bilirubin 0.2 mg/dL (0.3-1.0) L 05/12/18 04:40 Direct Bilirubin 0.13 mg/dL (0.0-0.2) 05/11/18 04:45 AST 13 U/L (13-39) 05/12/18 04:40 ALT 10 U/L (7-52) 05/12/18 04:40 Alkaline Phosphatase 80 U/L (34-104) 05/12/18 04:40 Troponin I 0.03 ng/mL (0.01-0.05) 05/10/18 04:35 Total Protein 4.9 gm/dL (6.0-8.3) L 05/12/18 04:40 Albumin 2.3 gm/dL (4.2-5.5) L 05/12/18 04:40 Globulin 2.6 gm/dL 05/12/18 04:40 Albumin/Globulin Ratio 0.9 (1.0-1.8) L 05/12/18 04:40 Vitamin B12 982 pg/mL (232-1245) 05/11/18 04:45 Folic Acid 12.7 ng/mL (>3.0) 05/11/18 04:45 Stool Occult Blood POSITIVE (NEGATIVE) H 05/11/18 19:00 Vancomycin Trough 14.1 ug/mL (5-10) H 05/12/18 15:10 Blood Type A POSITIVE 05/10/18 08:10 Antibody Screen NEGATIVE 05/10/18 08:10 Crossmatch See Detail 05/10/18 08:10 - Physical Exam Vitals and I&O: Vital Signs Temp 98.5 F 05/13/18 04:00 Pulse 60 05/13/18 06:00 Resp 16 05/13/18 06:00 BP 104/60 05/13/18 06:00 Pulse Ox 98 05/13/18 06:00 Intake & Output 05/12/18 05/13/18 05/13/18 18:59 06:59 18:59 Intake Total 410 500 Output Total 400 451 Balance 10 49 Weight (lbs) 58.967 kg 58.967 kg Intake: Intake, IV Amount 410 100 Piperacillin Sodium/ 50 100 Tazobact 3.375 gm In Sodium Chloride 0.9% 50 ml @ 100 mls/hr IV Q8HR [facility] Rx#:[id number] Sodium Ferric Gluconate 110 125 mg In Sodium Chloride 0.9% 100 ml @ 100 mls/hr IV DAILY [facility] Rx#: [id number] Vancomycin HCl 1.25 gm In 250 Sodium Chloride 0.9% 250 ml @ 165 mls/hr IV Q24H [facility] Rx#:[id number] Oral 400 Output: Urine 400 450 Stool 1 Other: # Bowel Movements 1 Stool Characteristics Soft Soft Brown Brown Green Green Weight Source Bedscale Bedscale Active Medications: Current Medications Acetaminophen (Tylenol) 650 mg PO Q4H PRN PRN Reason: Pain Or Fever above 101 Stop: 07/09/18 12:24 Acetaminophen/Hydrocodone Bitart ([place] 5mg/325mg) 1 tab PO Q4H PRN PRN Reason: Pain (Moderate) Stop: 07/09/18 12:22 Amiodarone HCl (Cordarone) 150 mg IV STAT PRN PRN PRN Reason: Cardiac Arrhythmia Stop: 07/09/18 12:26 Aspirin (Aspirin Chewable) 81 mg PO DAILY [facility] Stop: 07/10/18 08:59 Last Admin: 05/12/18 08:41 Dose: 81 mg Atorvastatin Calcium (Lipitor) 10 mg PO DAILY [facility]; Protocol Stop: 07/10/18 08:59 Last Admin: 05/12/18 08:41 Dose: 10 mg Atropine Sulfate (Atropine Syringe) 0.5 mg IVP PRN PRN PRN Reason: Cardiac Arrhythmia Stop: 07/09/18 12:34 Donepezil HCl (Aricept) 5 mg PO HS [facility] Stop: 07/09/18 20:59 Last Admin: 05/12/18 20:37 Dose: 5 mg Ferrous Sulfate (Iron) 325 mg PO DAILY [facility] Stop: 07/09/18 11:59 Last Admin: 05/12/18 08:41 Dose: 325 mg Heparin Sodium (Porcine) (Heparin) 5,000 units SUBQ Q12HR [facility] Stop: 07/09/18 20:59 Last Admin: 05/12/18 20:35 Dose: 5,000 units Hydrocortisone Sodium Succinate (Solu-Cortef) 100 mg IVP Q8HR [facility] Stop: 07/09/18 12:59 Last Admin: 05/13/18 04:42 Dose: 100 mg Norepinephrine Bitartrate 8 mg (/ Dextrose) 258 mls @ 0 mls/hr IV TITR PRN; Protocol PRN Reason: To Keep SBP Above 90 Stop: 07/09/18 00:36 Last Titration: 05/10/18 14:15 Dose: 0 mcg/min, 0 mls/hr Sodium Chloride (Nacl 0.9%) 1,000 mls @ 100 mls/hr IV .Q10H [facility] Stop: 07/09/18 12:52 Last Admin: 05/12/18 08:00 Dose: 100 mls/hr Vancomycin HCl 1.25 gm/ Sodium (Chloride) 250 mls @ 165 mls/hr IV Q24H [facility] Stop: 07/09/18 15:59 Last Infusion: 05/12/18 17:30 Dose: Infused Piperacillin Sod/Tazobactam (Sod 3.375 gm/ Sodium Chloride) 50 mls @ 100 mls/ hr IV Q8HR [facility] Stop: 07/09/18 12:59 Last Infusion: 05/13/18 05:15 Dose: Infused Ferric Sodium Gluconate Complex 125 mg/ Sodium Chloride 110 mls @ 100 mls/hr IV DAILY [facility] Stop: 07/11/18 13:29 Last Infusion: 05/12/18 15:20 Dose: Infused Lactulose (Cephulac) 20 gm PO TID [facility] Stop: 07/09/18 13:59 Last Admin: 05/12/18 20:09 Dose: Not Given Lorazepam (Ativan) 0.5 mg IV Q6HR PRN; Protocol PRN Reason: Agitation Stop: 07/09/18 00:33 Last Admin: 05/10/18 01:35 Dose: 0.5 mg Lorazepam (Ativan) 0.5 mg PO Q6HR PRN; Protocol PRN Reason: Agitation Stop: 07/09/18 12:10 Magnesium Chloride (Slow-Mag) 1 ect PO DAILY [facility] Stop: 07/10/18 08:59 Last Admin: 05/12/18 08:40 Dose: 1 ect Metoclopramide HCl (Reglan) 10 mg IVP Q8HR PRN PRN Reason: Abdominal Pain Stop: 07/09/18 12:14 Miscellaneous (Vancomycin Iv Per Pharmacy) 1 ea [facility] DAILY [facility] Stop: 07/10/18 08:59 Morphine Sulfate (Morphine) 1 mg IVP Q4H PRN PRN Reason: Severe Pain Stop: 07/09/18 13:47 Ondansetron HCl (Zofran) 4 mg IV Q8H PRN PRN Reason: Nausea / Vomiting Stop: 07/09/18 12:48 Pantoprazole Sodium (Protonix) 40 mg PO DAILY [facility] Stop: 07/10/18 11:44 Last Admin: 05/12/18 08:41 Dose: 40 mg General: No acute distress HEENT: Atraumatic Neck: Supple Cardiovascular: Regular rate Lungs: Clear to auscultation Abdomen: Bowel sounds, Soft, no Tender - Procedures Procedures: Procedures Procedure Code Date TRANSFUSE NONAUT RED BLOOD CELLS IN PERIPH VEIN, [facility] 64961N4 05/09/18 Assessment/Plan - Assessment Assessment: 1. ANEMIA, MULTIFACTORIAL. 2. FOBT POSITIVE. 3. DEMENTIA. 4. H/O A FIB, HTN. - Plan Plan: 1. CONSIDER EGD AND COLONOSCOPY IF FAMILY CONSENTS - PATIENT REFUSES. 2. MONITOR HGB; TRANSFUSE PRN. 3. DIET ANAID.
[2018-05-13] MEDS: Sodium Chloride 0.9% 1,000 ML IV SCH ×3 (09:36→22:30)
[2018-05-13] MEDS: Sodium Ferric Gluconate 125 MG in Sodium Chloride 0.9% 100 ML IV SCH (09:36)
--- NOTE | 2018-05-13 09:57 | General Progress Note ---
Subjective - Review of Systems Service Date: 05/13/18 Events since last encounter: consult dictated no active GI bleeding now for EGC and colonoscopy in AM Objective - Results Result Diagrams: 05/13/18 05:40 05/13/18 05:40 Recent Labs: Laboratory Last Values WBC 9.2 Th/cmm (4.8-10.8) 05/13/18 05:40 RBC 3.19 Mil/cmm (3.80-5.80) L 05/13/18 05:40 Hgb 8.6 gm/dL (12-16) L 05/13/18 05:40 Hct 26.3 % (40.0-54.0) L 05/13/18 05:40 MCV 82.6 fl (80-99) 05/13/18 05:40 MCH 27.1 pg (27.0-31.0) 05/13/18 05:40 MCHC Differential 32.8 pg (28.0-36.0) 05/13/18 05:40 RDW 16.5 % (11.5-20.0) 05/13/18 05:40 Plt Count 325 Th/cmm (150-400) 05/13/18 05:40 MPV 7.3 fl 05/13/18 05:40 Add Manual Diff YES 05/13/18 05:40 Band Neutrophils % 5 % (0-10) 05/13/18 05:40 Neutrophils (Manual) 86 % (40-80) H 05/13/18 05:40 Lymphocytes 8 % (20-50) L 05/13/18 05:40 Monocytes 1 % (2-10) L 05/13/18 05:40 Eosinophils 0 % (0-5) 05/13/18 05:40 Basophils 0 % (0-3) 05/13/18 05:40 Platelet Estimate ADEQUATE (NORMAL) 05/13/18 05:40 Total Retics Counted 1.2 % (0.5-1.5) 05/13/18 05:40 Absolute Retic 38.3 Th/cmm 05/13/18 05:40 Corrected Retic Count 0.7 % (0.5-1.5) 05/13/18 05:40 Plt Count 286 Th/cmm (150-750) 05/11/18 06:10 PT 11.2 SECONDS (9.5-11.5) 05/11/18 06:10 INR 1.08 (0.5-1.4) 05/11/18 06:10 PTT (Actin FS) 28.8 SECONDS (26.0-38.0) 05/11/18 06:10 Fibrinogen 348.0 mg/dL (200.0-400.0) 05/11/18 06:10 D-Dimer 979 ng/mL (100-400) H 05/11/18 06:10 Sodium 137 mEq/L (136-145) 05/13/18 05:40 Potassium 3.7 mEq/L (3.5-5.1) 05/13/18 05:40 Chloride 110 mEq/L (98-107) H 05/13/18 05:40 Carbon Dioxide 20.5 mEq/L (21.0-31.0) L 05/13/18 05:40 Anion Gap 10.2 (7.0-16.0) 05/13/18 05:40 BUN 20 mg/dL (7-25) 05/13/18 05:40 Creatinine 0.9 mg/dL (0.7-1.3) 05/13/18 05:40 Est GFR ( Amer) TNP 05/13/18 05:40 Est GFR (Non-Af Amer) TNP 05/13/18 05:40 BUN/Creatinine Ratio 22.2 05/13/18 05:40 Glucose 116 mg/dL (70-105) H 05/13/18 05:40 POC Glucose 165 MG/DL (70-105) H 05/09/18 21:42 Calcium 8.0 mg/dL (8.6-10.3) L 05/13/18 05:40 Phosphorus 3.9 mg/dL (2.5-5.0) 05/11/18 04:45 Magnesium 2.0 mg/dL (1.9-2.7) 05/11/18 04:45 Iron 17 ug/dL (38-169) L 05/11/18 04:45 TIBC 234 ug/dL (250-450) L 05/11/18 04:45 Iron Saturation 7 % (15-55) L 05/11/18 04:45 Unsaturated IBC 217 ug/dL (111-343) 05/11/18 04:45 Ferritin 76 ng/mL (30-400) 05/11/18 04:45 Total Bilirubin 0.2 mg/dL (0.3-1.0) L 05/12/18 04:40 Direct Bilirubin 0.13 mg/dL (0.0-0.2) 05/11/18 04:45 AST 13 U/L (13-39) 05/12/18 04:40 ALT 10 U/L (7-52) 05/12/18 04:40 Alkaline Phosphatase 80 U/L (34-104) 05/12/18 04:40 Troponin I 0.03 ng/mL (0.01-0.05) 05/10/18 04:35 Total Protein 4.9 gm/dL (6.0-8.3) L 05/12/18 04:40 Albumin 2.3 gm/dL (4.2-5.5) L 05/12/18 04:40 Globulin 2.6 gm/dL 05/12/18 04:40 Albumin/Globulin Ratio 0.9 (1.0-1.8) L 05/12/18 04:40 Vitamin B12 982 pg/mL (232-1245) 05/11/18 04:45 Folic Acid 12.7 ng/mL (>3.0) 05/11/18 04:45 Stool Occult Blood POSITIVE (NEGATIVE) H 05/11/18 19:00 Vancomycin Trough 14.1 ug/mL (5-10) H 05/12/18 15:10 Blood Type A POSITIVE 05/10/18 08:10 Antibody Screen NEGATIVE 05/10/18 08:10 Crossmatch See Detail 05/10/18 08:10 - Physical Exam Vitals and I&O: Vital Signs Temp 98.5 F 05/13/18 04:00 Pulse 60 05/13/18 06:00 Resp 16 05/13/18 06:00 BP 104/60 05/13/18 06:00 Pulse Ox 98 05/13/18 06:00 Intake & Output 05/12/18 05/13/18 05/13/18 18:59 06:59 18:59 Intake Total 1410 500 Output Total 400 451 Balance 1010 49 Weight (lbs) 58.967 kg 58.967 kg Intake: Intake, IV Amount 1410 100 Piperacillin Sodium/ 50 100 Tazobact 3.375 gm In Sodium Chloride 0.9% 50 ml @ 100 mls/hr IV Q8HR [facility] Rx#:[id number] Sodium Chloride 0.9% 1, 1000 000 ml @ 100 mls/hr IV . Q10H [facility] Rx#:[id number] Sodium Ferric Gluconate 110 125 mg In Sodium Chloride 0.9% 100 ml @ 100 mls/hr IV DAILY [facility] Rx#: [id number] Vancomycin HCl 1.25 gm In 250 Sodium Chloride 0.9% 250 ml @ 165 mls/hr IV Q24H [facility] Rx#:[id number] Oral 400 Output: Urine 400 450 Stool 1 Other: # Bowel Movements 1 Stool Characteristics Soft Soft Brown Brown Green Green Weight Source Bedscale Bedscale Active Medications: Current Medications Acetaminophen (Tylenol) 650 mg PO Q4H PRN PRN Reason: Pain Or Fever above 101 Stop: 07/09/18 12:24 Acetaminophen/Hydrocodone Bitart ([place] 5mg/325mg) 1 tab PO Q4H PRN PRN Reason: Pain (Moderate) Stop: 07/09/18 12:22 Amiodarone HCl (Cordarone) 150 mg IV STAT PRN PRN PRN Reason: Cardiac Arrhythmia Stop: 07/09/18 12:26 Aspirin (Aspirin Chewable) 81 mg PO DAILY [facility] Stop: 07/10/18 08:59 Last Admin: 05/13/18 09:20 Dose: 81 mg Atorvastatin Calcium (Lipitor) 10 mg PO DAILY [facility]; Protocol Stop: 07/10/18 08:59 Last Admin: 05/13/18 09:21 Dose: 10 mg Atropine Sulfate (Atropine Syringe) 0.5 mg IVP PRN PRN PRN Reason: Cardiac Arrhythmia Stop: 07/09/18 12:34 Donepezil HCl (Aricept) 5 mg PO HS [facility] Stop: 07/09/18 20:59 Last Admin: 05/12/18 20:37 Dose: 5 mg Ferrous Sulfate (Iron) 325 mg PO DAILY [facility] Stop: 07/09/18 11:59 Last Admin: 05/13/18 09:20 Dose: 325 mg Heparin Sodium (Porcine) (Heparin) 5,000 units SUBQ Q12HR [facility] Stop: 07/09/18 20:59 Last Admin: 05/13/18 09:21 Dose: 5,000 units Hydrocortisone Sodium Succinate (Solu-Cortef) 100 mg IVP Q8HR [facility] Stop: 07/09/18 12:59 Last Admin: 05/13/18 04:42 Dose: 100 mg Norepinephrine Bitartrate 8 mg (/ Dextrose) 258 mls @ 0 mls/hr IV TITR PRN; Protocol PRN Reason: To Keep SBP Above 90 Stop: 07/09/18 00:36 Last Titration: 05/10/18 14:15 Dose: 0 mcg/min, 0 mls/hr Sodium Chloride (Nacl 0.9%) 1,000 mls @ 100 mls/hr IV .Q10H [facility] Stop: 07/09/18 12:52 Last Admin: 05/13/18 09:36 Dose: 100 mls/hr Vancomycin HCl 1.25 gm/ Sodium (Chloride) 250 mls @ 165 mls/hr IV Q24H [facility] Stop: 07/09/18 15:59 Last Infusion: 05/12/18 17:30 Dose: Infused Piperacillin Sod/Tazobactam (Sod 3.375 gm/ Sodium Chloride) 50 mls @ 100 mls/ hr IV Q8HR [facility] Stop: 07/09/18 12:59 Last Infusion: 05/13/18 05:15 Dose: Infused Ferric Sodium Gluconate Complex 125 mg/ Sodium Chloride 110 mls @ 100 mls/hr IV DAILY [facility] Stop: 07/11/18 13:29 Last Admin: 05/13/18 09:36 Dose: 100 mls/hr Lactulose (Cephulac) 20 gm PO TID [facility] Stop: 07/09/18 13:59 Last Admin: 05/12/18 20:09 Dose: Not Given Lorazepam (Ativan) 0.5 mg IV Q6HR PRN; Protocol PRN Reason: Agitation Stop: 07/09/18 00:33 Last Admin: 05/10/18 01:35 Dose: 0.5 mg Lorazepam (Ativan) 0.5 mg PO Q6HR PRN; Protocol PRN Reason: Agitation Stop: 07/09/18 12:10 Magnesium Chloride (Slow-Mag) 1 ect PO DAILY [facility] Stop: 07/10/18 08:59 Last Admin: 05/13/18 09:20 Dose: 1 ect Metoclopramide HCl (Reglan) 10 mg IVP Q8HR PRN PRN Reason: Abdominal Pain Stop: 07/09/18 12:14 Miscellaneous (Vancomycin Iv Per Pharmacy) 1 ea MC DAILY [facility] Stop: 07/10/18 08:59 Morphine Sulfate (Morphine) 1 mg IVP Q4H PRN PRN Reason: Severe Pain Stop: 07/09/18 13:47 Ondansetron HCl (Zofran) 4 mg IV Q8H PRN PRN Reason: Nausea / Vomiting Stop: 07/09/18 12:48 Pantoprazole Sodium (Protonix) 40 mg PO DAILY [facility] Stop: 07/10/18 11:44 Last Admin: 05/13/18 09:20 Dose: 40 mg General: No acute distress HEENT: Atraumatic Neck: Supple Cardiovascular: Regular rate Lungs: Clear to auscultation Abdomen: Bowel sounds, Soft, no Tender - Procedures Procedures: Procedures Procedure Code Date TRANSFUSE NONAUT RED BLOOD CELLS IN PERIPH VEIN, [facility] 08458X1 05/09/18 Nutritional Asmnt/Malnutr-PDOC - Dietary Evaluation Malnutrition Findings (Please click <Entered> for more info): Nutritional Asmnt/Malnutrition Start: 05/10/18 14: 28 Text: Status: Complete Freq: Protocol: Document 05/10/18 14:29 LCHENG (Rec: 05/10/18 14:39 LCHENG [id number]) Nutritional Asmnt/Malnutrition Patient General Information Nutritional Screening High Risk Diagnosis PNA, hypotension Pertinent Medical Hx/Surgical Hx PNA, COPD, mild alzheimer, PVD , UTI, sepsis Subjective Information Consult received for Tripp score 12. Pt seen resting in bed at time of visit. Per RN, pt is on levophed. pt likes to eat, consumed about 50% of breakfast this morning. Pt took long time to chew food per RN. 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 Problem Problem increased nutrition needs Etiology increased metabolic demand Signs/Symptoms: dx of PNA 1. Problem Problem altered nutrition relatedl abs Etiology electrolytes imbalance Signs/Symptoms: cl 110, Ca 8.3 Malnutrition Alert Is there a minimum of two criteria No selected? Query Text:Check all the applicable criteria. A minimum of two criteria are recommended for diagnosis of either severe or non-severe malnutrition. Malnutrition Related to Morbid Obesity Malnutrition related to morbid obesity No Intervention/Recommendation Comments 1. Continue with cardiac diet as ordered. Recommend [facility] soft ground diet d/g pt having difficulty of chewing. RN Vivi notified. 2. Monitor PO intake, wt, labs and skin integrity 3. F/U as high risk in 2-3 days, 05/12-05/13 Expected Outcomes/Goals Expected Outcomes/Goals 1. PO intake to meet at least 75% of nutritional needs. 2. Wt stability, skin to remain intact, labs to approach WNL.
--- NOTE | 2018-05-13 12:36 | Consultation ---
DATE OF CONSULTATION: 05/13/2018 SURGICAL CONSULT REFERRING PHYSICIAN: Dr. Arriaga REASON FOR CONSULTATION: Gastrointestinal bleeding, etiology? Thank you for referring this patient to me. This is an 88-year-old male who was first brought to [facility] and was found to be anemic and was given 3 units of blood. For insurance reason, the patient was transferred here. The patient has been on pressor support during transfer and now is no longer needing pressor support. The patient has been seen in consult by GI and plan for endoscopy, upper and lower has been scheduled for tomorrow. Laboratory studies now showed hemoglobin at 8.6, the platelet count is normal at 325. The chemistry is essentially normal. Coagulation studies: PT and PTT is normal. D-dimer elevated to 979. X-ray reports showed no DVT in the upper extremity and the x-ray of the chest shows no acute pulmonary disease. PHYSICAL EXAMINATION: The patient appears to be pleasant but not oriented. He denies any abdominal pain. No peristalsis noted in the overnight hours. GI note is read, and EGD and colonoscopy is planned for tomorrow. We will follow with you. JOB# [id number]
--- NOTE | 2018-05-13 21:57 | Internal Medicine Prog Note ---
Internal Medicine Subjective - Subjective Service Date: 05/13/18 Patient seen and examined:: without staff Patient is:: asleep, eyes closed, in bed Per staff patient has:: no adverse event Internal Medicine Objective - Results Result Diagrams: 05/13/18 05:40 05/13/18 05:40 Recent Labs: Laboratory Last Values WBC 9.2 Th/cmm (4.8-10.8) 05/13/18 05:40 RBC 3.19 Mil/cmm (3.80-5.80) L 05/13/18 05:40 Hgb 8.6 gm/dL (12-16) L 05/13/18 05:40 Hct 26.3 % (40.0-54.0) L 05/13/18 05:40 MCV 82.6 fl (80-99) 05/13/18 05:40 MCH 27.1 pg (27.0-31.0) 05/13/18 05:40 MCHC Differential 32.8 pg (28.0-36.0) 05/13/18 05:40 RDW 16.5 % (11.5-20.0) 05/13/18 05:40 Plt Count 325 Th/cmm (150-400) 05/13/18 05:40 MPV 7.3 fl 05/13/18 05:40 Add Manual Diff YES 05/13/18 05:40 Band Neutrophils % 5 % (0-10) 05/13/18 05:40 Neutrophils (Manual) 86 % (40-80) H 05/13/18 05:40 Lymphocytes 8 % (20-50) L 05/13/18 05:40 Monocytes 1 % (2-10) L 05/13/18 05:40 Eosinophils 0 % (0-5) 05/13/18 05:40 Basophils 0 % (0-3) 05/13/18 05:40 Platelet Estimate ADEQUATE (NORMAL) 05/13/18 05:40 Total Retics Counted 1.2 % (0.5-1.5) 05/13/18 05:40 Absolute Retic 38.3 Th/cmm 05/13/18 05:40 Corrected Retic Count 0.7 % (0.5-1.5) 05/13/18 05:40 Plt Count 286 Th/cmm (150-750) 05/11/18 06:10 PT 11.2 SECONDS (9.5-11.5) 05/11/18 06:10 INR 1.08 (0.5-1.4) 05/11/18 06:10 PTT (Actin FS) 28.8 SECONDS (26.0-38.0) 05/11/18 06:10 Fibrinogen 348.0 mg/dL (200.0-400.0) 05/11/18 06:10 D-Dimer 979 ng/mL (100-400) H 05/11/18 06:10 Sodium 137 mEq/L (136-145) 05/13/18 05:40 Potassium 3.7 mEq/L (3.5-5.1) 05/13/18 05:40 Chloride 110 mEq/L (98-107) H 05/13/18 05:40 Carbon Dioxide 20.5 mEq/L (21.0-31.0) L 05/13/18 05:40 Anion Gap 10.2 (7.0-16.0) 05/13/18 05:40 BUN 20 mg/dL (7-25) 05/13/18 05:40 Creatinine 0.9 mg/dL (0.7-1.3) 05/13/18 05:40 Est GFR ( Amer) TNP 05/13/18 05:40 Est GFR (Non-Af Amer) TNP 05/13/18 05:40 BUN/Creatinine Ratio 22.2 05/13/18 05:40 Glucose 116 mg/dL (70-105) H 05/13/18 05:40 POC Glucose 165 MG/DL (70-105) H 05/09/18 21:42 Calcium 8.0 mg/dL (8.6-10.3) L 05/13/18 05:40 Phosphorus 3.9 mg/dL (2.5-5.0) 05/11/18 04:45 Magnesium 2.0 mg/dL (1.9-2.7) 05/11/18 04:45 Iron 17 ug/dL (38-169) L 05/11/18 04:45 TIBC 234 ug/dL (250-450) L 05/11/18 04:45 Iron Saturation 7 % (15-55) L 05/11/18 04:45 Unsaturated IBC 217 ug/dL (111-343) 05/11/18 04:45 Ferritin 76 ng/mL (30-400) 05/11/18 04:45 Total Bilirubin 0.2 mg/dL (0.3-1.0) L 05/12/18 04:40 Direct Bilirubin 0.13 mg/dL (0.0-0.2) 05/11/18 04:45 AST 13 U/L (13-39) 05/12/18 04:40 ALT 10 U/L (7-52) 05/12/18 04:40 Alkaline Phosphatase 80 U/L (34-104) 05/12/18 04:40 Troponin I 0.03 ng/mL (0.01-0.05) 05/10/18 04:35 Total Protein 4.9 gm/dL (6.0-8.3) L 05/12/18 04:40 Albumin 2.3 gm/dL (4.2-5.5) L 05/12/18 04:40 Globulin 2.6 gm/dL 05/12/18 04:40 Albumin/Globulin Ratio 0.9 (1.0-1.8) L 05/12/18 04:40 Vitamin B12 982 pg/mL (232-1245) 05/11/18 04:45 Folic Acid 12.7 ng/mL (>3.0) 05/11/18 04:45 Stool Occult Blood POSITIVE (NEGATIVE) H 05/11/18 19:00 Vancomycin Trough 14.1 ug/mL (5-10) H 05/12/18 15:10 Blood Type A POSITIVE 05/10/18 08:10 Antibody Screen NEGATIVE 05/10/18 08:10 Crossmatch See Detail 05/10/18 08:10 - Physical Exam Vitals and I&O: Vital Signs Temp 99 F 05/13/18 16:00 Pulse 119 05/13/18 18:00 Resp 17 05/13/18 18:00 BP 123/96 05/13/18 18:00 Pulse Ox 97 05/13/18 18:00 Intake & Output 05/13/18 05/13/18 05/14/18 06:59 18:59 06:59 Intake Total 500 166.667 Output Total 451 Balance 49 166.667 Weight (lbs) 58.967 kg Intake: Intake, IV Amount 100 166.667 Piperacillin Sodium/ 100 50 Tazobact 3.375 gm In Sodium Chloride 0.9% 50 ml @ 100 mls/hr IV Q8HR [facility] Rx#:[id number] Sodium Chloride 0.9% 1, 6.667 000 ml @ 100 mls/hr IV . Q10H [facility] Rx#:[id number] Sodium Ferric Gluconate 110 125 mg In Sodium Chloride 0.9% 100 ml @ 100 mls/hr IV DAILY [facility] Rx#: [id number] Oral 400 Output: Urine 450 Stool 1 Other: Stool Characteristics Soft Soft Brown Brown Green Bloody Weight Source Bedscale Active Medications: Current Medications Acetaminophen (Tylenol) 650 mg PO Q4H PRN PRN Reason: Pain Or Fever above 101 Stop: 07/09/18 12:24 Acetaminophen/Hydrocodone Bitart ([place] 5mg/325mg) 1 tab PO Q4H PRN PRN Reason: Pain (Moderate) Stop: 07/09/18 12:22 Amiodarone HCl (Cordarone) 150 mg IV STAT PRN PRN PRN Reason: Cardiac Arrhythmia Stop: 07/09/18 12:26 Aspirin (Aspirin Chewable) 81 mg PO DAILY [facility] Stop: 07/10/18 08:59 Last Admin: 05/13/18 09:20 Dose: 81 mg Atorvastatin Calcium (Lipitor) 10 mg PO DAILY [facility]; Protocol Stop: 07/10/18 08:59 Last Admin: 05/13/18 09:21 Dose: 10 mg Atropine Sulfate (Atropine Syringe) 0.5 mg IVP PRN PRN PRN Reason: Cardiac Arrhythmia Stop: 07/09/18 12:34 Donepezil HCl (Aricept) 5 mg PO HS [facility] Stop: 07/09/18 20:59 Last Admin: 05/13/18 21:20 Dose: 5 mg Ferrous Sulfate (Iron) 325 mg PO DAILY [facility] Stop: 07/09/18 11:59 Last Admin: 05/13/18 09:20 Dose: 325 mg Heparin Sodium (Porcine) (Heparin) 5,000 units SUBQ Q12HR [facility] Stop: 07/09/18 20:59 Last Admin: 05/13/18 21:21 Dose: Not Given Hydrocortisone Sodium Succinate (Solu-Cortef) 100 mg IVP Q8HR [facility] Stop: 07/09/18 12:59 Last Admin: 05/13/18 21:20 Dose: 100 mg Norepinephrine Bitartrate 8 mg (/ Dextrose) 258 mls @ 0 mls/hr IV TITR PRN; Protocol PRN Reason: To Keep SBP Above 90 Stop: 07/09/18 00:36 Last Titration: 05/10/18 14:15 Dose: 0 mcg/min, 0 mls/hr Sodium Chloride (Nacl 0.9%) 1,000 mls @ 100 mls/hr IV .Q10H [facility] Stop: 07/09/18 12:52 Last Admin: 05/13/18 09:45 Dose: 100 mls/hr Vancomycin HCl 1.25 gm/ Sodium (Chloride) 250 mls @ 165 mls/hr IV Q24H [facility] Stop: 07/09/18 15:59 Last Admin: 05/13/18 16:30 Dose: 165 mls/hr Piperacillin Sod/Tazobactam (Sod 3.375 gm/ Sodium Chloride) 50 mls @ 100 mls/ hr IV Q8HR [facility] Stop: 07/09/18 12:59 Last Admin: 05/13/18 21:19 Dose: 100 mls/hr Ferric Sodium Gluconate Complex 125 mg/ Sodium Chloride 110 mls @ 100 mls/hr IV DAILY [facility] Stop: 07/11/18 13:29 Last Infusion: 05/13/18 10:45 Dose: Infused Lactulose (Cephulac) 20 gm PO TID [facility] Stop: 07/09/18 13:59 Last Admin: 05/13/18 21:20 Dose: Not Given Lorazepam (Ativan) 0.5 mg IV Q6HR PRN; Protocol PRN Reason: Agitation Stop: 07/09/18 00:33 Last Admin: 05/10/18 01:35 Dose: 0.5 mg Lorazepam (Ativan) 0.5 mg PO Q6HR PRN; Protocol PRN Reason: Agitation Stop: 07/09/18 12:10 Magnesium Chloride (Slow-Mag) 1 ect PO DAILY [facility] Stop: 07/10/18 08:59 Last Admin: 05/13/18 09:20 Dose: 1 ect Metoclopramide HCl (Reglan) 10 mg IVP Q8HR PRN PRN Reason: Abdominal Pain Stop: 07/09/18 12:14 Miscellaneous (Vancomycin Iv Per Pharmacy) 1 ea [facility] DAILY [facility] Stop: 07/10/18 08:59 Morphine Sulfate (Morphine) 1 mg IVP Q4H PRN PRN Reason: Severe Pain Stop: 07/09/18 13:47 Ondansetron HCl (Zofran) 4 mg IV Q8H PRN PRN Reason: Nausea / Vomiting Stop: 07/09/18 12:48 Pantoprazole Sodium (Protonix) 40 mg PO DAILY [facility] Stop: 07/10/18 11:44 Last Admin: 05/13/18 09:20 Dose: 40 mg General: lethargic, congested HEENT: NC/AT Neck: Supple, No JVD, No thyromegaly, No LAD Lungs: other (few wheezing bl.) Cardiovascular: other (iregular.) Abdomen: soft, non-tender, non-distended, positive bowel sound Extremities: clear - Procedures Procedures: Procedures Procedure Code Date TRANSFUSE NONAUT RED BLOOD CELLS IN PERIPH VEIN, [facility] 93562Q4 05/09/18 Internal Medicine Assmt/Plan - Assessment Assessment: ALOC: on and off, observe closely in ICU. Hypotension: close monitoring in ICU. sepsis: improving. Rt Scrotal abscess with drainage: G/s, C&S ordered; Surgical consult appreciated. PNA: IVPB ABX. Anemia: OB +x3; s/p PRBC. CAD: s/p MS h/o A. Fib: rate controlled. PVD Nutritional Asmnt/Malnutr-PDOC - Dietary Evaluation Malnutrition Findings (Please click <Entered> for more info): Nutritional Asmnt/Malnutrition Start: 05/10/18 14: 28 Text: Status: Complete Freq: Protocol: Document 05/10/18 14:29 LCHENG (Rec: 05/10/18 14:39 LCLAURYG [id number]) Nutritional Asmnt/Malnutrition Patient General Information Nutritional Screening High Risk Diagnosis PNA, hypotension Pertinent Medical Hx/Surgical Hx PNA, COPD, mild alzheimer, PVD , UTI, sepsis Subjective Information Consult received for Tripp score 12. Pt seen resting in bed at time of visit. Per RN, pt is on levophed. pt likes to eat, consumed about 50% of breakfast this morning. Pt took long time to chew food per RN. 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 Problem Problem increased nutrition needs Etiology increased metabolic demand Signs/Symptoms: dx of PNA 1. Problem Problem altered nutrition relatedl abs Etiology electrolytes imbalance Signs/Symptoms: cl 110, Ca 8.3 Malnutrition Alert Is there a minimum of two criteria No selected? Query Text:Check all the applicable criteria. A minimum of two criteria are recommended for diagnosis of either severe or non-severe malnutrition. Malnutrition Related to Morbid Obesity Malnutrition related to morbid obesity No Intervention/Recommendation Comments 1. Continue with cardiac diet as ordered. Recommend [place] soft ground diet d/g pt having difficulty of chewing. REENA Trinidad notified. 2. Monitor PO intake, wt, labs and skin integrity 3. F/U as high risk in 2-3 days, 05/12-05/13 Expected Outcomes/Goals Expected Outcomes/Goals 1. PO intake to meet at least 75% of nutritional needs. 2. Wt stability, skin to remain intact, labs to approach WNL.
[2018-05-14 05:14] LABS: HEMATOCRIT 26.7 % (41.0-60); HEMOGLOBIN 8.8 gm/dL (12-16); MEAN CELL VOLUME 82.3 fl (80-99); MEAN CORPUSCULAR HEMOGLOBIN 27.2 pg (27.0-31.0); MEAN CORPUSCULAR HGB CONC 33.1 pg (28.0-36.0); MEAN PLATELET VOLUME 7.5 fl; PLATELET COUNT 327 Th/cmm (150-400); RED BLOOD COUNT 3.25 Mil/cmm (3.80-5.80); RED CELL DISTRIBUTION WIDTH 16.5 % (11.5-20.0); WHITE BLOOD COUNT 7.5 Th/cmm (4.8-10.8)
[2018-05-14 05:18] LABS: INR 1.11 (0.5-1.4); PROTHROMBIN TIME (TEST) 11.6 SECONDS (9.5-11.5)
[2018-05-14 05:19] LABS: BUN - UREA NITROGEN 19 mg/dL (7-25); CALCIUM SERUM 8.1 mg/dL (8.6-10.3); CARBON DIOXIDE 21.3 mEq/L (21.0-31.0); CHLORIDE 109 mEq/L (98-107); CREATININE - SERUM 0.9 mg/dL (0.7-1.3); GLUCOSE 100 mg/dL (70-105); POTASSIUM SERUM 3.3 mEq/L (3.5-5.1); SODIUM SERUM 138 mEq/L (136-145)
[2018-05-14] MEDS: Hydrocortisone Sodium Succ 100 mg Vial IVP SCH ×3 (05:30→20:34)
[2018-05-14 05:56] LABS: LYMPHOCYTE 13 % (20-50); MONOCYTE 1 % (2-10); NEUTROPHILS 86 % (40-80)
[2018-05-14] MEDS ORDERED: KCL 20mEq/100mL Premix 20 MEQ/100 ML PIGGYBACK IV ONE (07:43)
[2018-05-14 08:44] LABS: HEMATOCRIT 26.7 % (40.0-54.0); RBC RETICULOCYTE COUNT 3.25 Mil/cmm
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
[2018-05-14] MEDS: Atorvastatin Calcium 10 MG TAB PO SCH (09:00)
[2018-05-14] MEDS: Pantoprazole 40 mg EC Tab PO SCH (09:00)
[2018-05-14] MEDS: Aspirin 81mg Chewable Tab PO SCH (09:00)
[2018-05-14] MEDS: Lactulose 10 Gm/15 mL 30mL UDC PO SCH ×3 (09:00→20:34)
[2018-05-14] MEDS: Magnesium Chloride EC 64mg Tab PO SCH (09:00)
[2018-05-14] MEDS: Ferrous Sulfate 325 MG TAB PO SCH (09:00)
[2018-05-14 09:27] LABS: ABSOLUTE RETICULOCYTE 35.8 Th/cmm; CORRECTED RETICULOCYTE COUNT 0.7 % (0.5-1.5); RETICULOCYTES % COUNTED 1.1 % (0.5-1.5)
[2018-05-14] MEDS ORDERED: Lidocaine 2% Gel 5 mL TP ONE (10:10)
[2018-05-14] MEDS ORDERED: Propofol 10 mg/mL 20mL Vial **SURGERY USE ONLY IV ONE (10:10)
[2018-05-14] MEDS: Sodium Ferric Gluconate 125 MG in Sodium Chloride 0.9% 100 ML IV SCH (11:18)
--- NOTE | 2018-05-14 12:36 | Diagnostic Imaging Report ---
CT scan abdomen and pelvis without intravenous contrast HISTORY: Pain, inguinal hernias Total DLP equals 878 CTDI equals 22.5 Axial sections were obtained from the xiphoid process down to the pubic symphysis. Limited sections the lower chest image 3. Cardiomegaly. Coronary artery calcification is seen. There are small to moderate bilateral pleural effusions along with pulmonary parenchymal changes in the lower lobe suggesting consolidation and/or atelectasis. The liver exhibits a homogeneous parenchyma. No focal lesions. The spleen appears normal. No focal abnormality seen in the region of the pancreas. No significant focal renal lesions. Small amount of diffuse ascites seen in the pelvis. The exam of the pelvis demonstrates bilateral large inguinal hernias associated with bowel. Extension of what appears to be the ascending colon extends into the right hemiscrotum. Loops of descending colon noted within the left hemiscrotum. Pericolonic fluid is seen. A degree of incarceration on the right side cannot be excluded. Clinical correlation is needed. There is enlargement of the prostate gland with encroachment on the floor of the urinary bladder. Scoliosis and degenerative changes seen to the spine. There is partial compression involving the body of L2. Atherosclerotic calcification noted throughout the abdominal aorta and iliac arteries. IMPRESSION: 1. Large bilateral inguinal hernias associated with bowel as described above. Incarceration on the right side cannot be excluded. Clinical correlation is needed. 2. Small amount of ascites 3. Enlarged prostate gland 4. Atherosclerotic vascular changes 5. Scoliosis and severe degenerative changes through the spine 6. Cardiomegaly with bilateral pleural effusions and pulmonary parenchymal changes within the lower lobes of the lungs consistent with consolidation and/or atelectasis
--- NOTE | 2018-05-14 15:13 | Operative Report ---
DATE OF SURGERY: 05/14/2018 INPATIENT EGD REPORT PROCEDURE PERFORMED: EGD with biopsy ENDOSCOPIST: Malik Hartman M.D. PREOPERATIVE DIAGNOSES: Anemia with occult positive stool, positive for blood. 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 INDICATION: The patient is an 88-year-old male admitted to the hospital with sepsis, but was found to have anemia and occult blood positive stool and thus GI consultation was placed. The patient does not have any overt GI bleeding. CONSENT: Informed consent was obtained from the patient. The risks and benefits of the procedure were discussed include but not limited to infection, bleeding, perforation, need for surgery, cardiopulmonary complications, missed pathology, and . The patient indicated his understanding of these risks, which before the procedure and signed the consent form. ANESTHESIA: The procedure was performed in the main operating room under the care of the general anesthesiologist using propofol for sedation. PROCEDURE IN DETAIL: The patient was hooked up the appropriate monitoring devices including blood pressure, pulse, and pulse oximetry. An IV was in place. Oxygen was delivered via nasal cannula throughout the procedure. General anesthesia was then administered by the anesthesiologist. The patient was in the left lateral decubitus position. Mouthpiece was inserted and secured. The gastroscope was introduced in the mouth and guided under direct visualization into the esophagus, stomach, and duodenum. The scope was then slowly and carefully withdrawn, making sure to examine the entire mucosa in a careful and systematic fashion. Retroflexion was performed in the stomach. The scope was straightening and withdrawal from the body. No obvious sign of complication was observed after the procedure. The patient was turned and we were planning on doing a colonoscopy today; however, he was having solid brown stool at this time and the patient admits to only having about 1/4 of the GoLYTELY preparation and thus this procedure was not performed. FINDINGS: EGD PORTION: Esophagus: The endogastric folds and Z line was located at 37 cm from the incisors. There was an irregular Z line here, possible 1 cm Osorio's, and thus biopsy was taken in 4 quadrants. There was also evidence of LA class A esophagitis in this region. The diaphragmatic pinch was located at 39 cm from the incisors indicating a 2 cm hiatal hernia. There was no obvious mass lesion found in the esophagus, otherwise stomach portion. There was gastritis in the antrum, although no discrete ulcer or mass. The cardia and fundus appeared endoscopically normal. Biopsies were taken from the antrum for histology. Duodenal bulb showed Martine's glands, but no obvious pathology. Second portion appeared normal endoscopically. IMPRESSION: 1. 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 2. LA class A esophagitis. 3. Gastritis, status post biopsy. 4. Poor bowel preparation and inability to perform colonoscopy. RECOMMENDATIONS: 1. We will follow up the biopsy results. If there is Osorio esophagus present, the patient will need to be placed on the appropriate screening interval as determined by the pathology review. 2. We will follow up the gastric biopsy results. If there is H. pylori present, the patient will need appropriate antibiotic therapy. 3. Colonoscopy is indicated given that he has occult positive stool. However, the patient does not want to drink his bowel prep while in the hospital and thus he can consider doing a colonoscopy as an outpatient. He will need to come see us in the GI office or another personal computer network analyst via his insurance to have this performed and he understands this. If the patient has overt GI bleeding, we can revisit the idea of trying to do this in the hospital, although the patient is not able to drink his bowel prep. 4. Continue to trend his hemoglobin level and keep this above 8. 5. We will start the patient's diet today and advance as tolerated. Thank you for allowing me to participate in his care. Please call me with any further questions. [facility]# [id number]
[2018-05-14] MEDS: Venelex 60gm Tube TP SCH (17:19)
--- NOTE | 2018-05-14 20:10 | Internal Medicine Prog Note ---
Internal Medicine Subjective - Subjective Service Date: 05/14/18 Patient seen and examined:: with staff Patient is:: asleep, eyes closed, in bed Per staff patient has:: no adverse event Internal Medicine Objective - Results Result Diagrams: 05/14/18 04:20 05/14/18 04:20 Recent Labs: Laboratory Last Values WBC 7.5 Th/cmm (4.8-10.8) 05/14/18 04:20 RBC 3.25 Mil/cmm (3.80-5.80) L 05/14/18 04:20 Hgb 8.8 gm/dL (12-16) L 05/14/18 04:20 Hct 26.7 % (40.0-54.0) L 05/14/18 04:20 MCV 82.3 fl (80-99) 05/14/18 04:20 MCH 27.2 pg (27.0-31.0) 05/14/18 04:20 MCHC Differential 33.1 pg (28.0-36.0) 05/14/18 04:20 RDW 16.5 % (11.5-20.0) 05/14/18 04:20 Plt Count 327 Th/cmm (150-400) 05/14/18 04:20 MPV 7.5 fl 05/14/18 04:20 Add Manual Diff YES 05/14/18 04:20 Band Neutrophils % 5 % (0-10) 05/13/18 05:40 Neutrophils (Manual) 86 % (40-80) H 05/14/18 04:20 Lymphocytes 13 % (20-50) L 05/14/18 04:20 Monocytes 1 % (2-10) L 05/14/18 04:20 Eosinophils 0 % (0-5) 05/13/18 05:40 Basophils 0 % (0-3) 05/13/18 05:40 Platelet Estimate ADEQUATE (NORMAL) 05/13/18 05:40 Total Retics Counted 1.1 % (0.5-1.5) 05/14/18 04:20 Absolute Retic 35.8 Th/cmm 05/14/18 04:20 Corrected Retic Count 0.7 % (0.5-1.5) 05/14/18 04:20 Plt Count 286 Th/cmm (150-750) 05/11/18 06:10 PT 11.6 SECONDS (9.5-11.5) H 05/14/18 04:20 INR 1.11 (0.5-1.4) 05/14/18 04:20 PTT (Actin FS) 29.0 SECONDS (26.0-38.0) 05/14/18 04:20 Fibrinogen 348.0 mg/dL (200.0-400.0) 05/11/18 06:10 D-Dimer 979 ng/mL (100-400) H 05/11/18 06:10 Sodium 138 mEq/L (136-145) 05/14/18 04:20 Potassium 3.3 mEq/L (3.5-5.1) L 05/14/18 04:20 Chloride 109 mEq/L (98-107) H 05/14/18 04:20 Carbon Dioxide 21.3 mEq/L (21.0-31.0) 05/14/18 04:20 Anion Gap 11.0 (7.0-16.0) 05/14/18 04:20 BUN 19 mg/dL (7-25) 05/14/18 04:20 Creatinine 0.9 mg/dL (0.7-1.3) 05/14/18 04:20 Est GFR ( Amer) TNP 05/14/18 04:20 Est GFR (Non-Af Amer) TNP 05/14/18 04:20 BUN/Creatinine Ratio 21.1 05/14/18 04:20 Glucose 100 mg/dL (70-105) 05/14/18 04:20 POC Glucose 165 MG/DL (70-105) H 05/09/18 21:42 Calcium 8.1 mg/dL (8.6-10.3) L 05/14/18 04:20 Phosphorus 3.9 mg/dL (2.5-5.0) 05/11/18 04:45 Magnesium 2.0 mg/dL (1.9-2.7) 05/11/18 04:45 Iron 17 ug/dL (38-169) L 05/11/18 04:45 TIBC 234 ug/dL (250-450) L 05/11/18 04:45 Iron Saturation 7 % (15-55) L 05/11/18 04:45 Unsaturated IBC 217 ug/dL (111-343) 05/11/18 04:45 Ferritin 76 ng/mL (30-400) 05/11/18 04:45 Total Bilirubin 0.2 mg/dL (0.3-1.0) L 05/12/18 04:40 Direct Bilirubin 0.13 mg/dL (0.0-0.2) 05/11/18 04:45 AST 13 U/L (13-39) 05/12/18 04:40 ALT 10 U/L (7-52) 05/12/18 04:40 Alkaline Phosphatase 80 U/L (34-104) 05/12/18 04:40 Troponin I 0.03 ng/mL (0.01-0.05) 05/10/18 04:35 Total Protein 4.9 gm/dL (6.0-8.3) L 05/12/18 04:40 Albumin 2.3 gm/dL (4.2-5.5) L 05/12/18 04:40 Globulin 2.6 gm/dL 05/12/18 04:40 Albumin/Globulin Ratio 0.9 (1.0-1.8) L 05/12/18 04:40 Vitamin B12 982 pg/mL (232-1245) 05/11/18 04:45 Folic Acid 12.7 ng/mL (>3.0) 05/11/18 04:45 Stool Occult Blood POSITIVE (NEGATIVE) H 05/11/18 19:00 Vancomycin Trough 14.1 ug/mL (5-10) H 05/12/18 15:10 Blood Type A POSITIVE 05/10/18 08:10 Antibody Screen NEGATIVE 05/10/18 08:10 Crossmatch See Detail 05/10/18 08:10 - Physical Exam Vitals and I&O: Vital Signs Temp 97.3 F 05/14/18 16:00 Pulse 82 05/14/18 18:00 Resp 17 05/14/18 18:00 BP 149/80 05/14/18 18:00 Pulse Ox 98 05/14/18 18:00 Intake & Output 05/14/18 05/14/18 05/15/18 06:59 18:59 06:59 Intake Total 1560 810 Output Total 650 Balance 910 810 Weight (lbs) 58.967 kg 57.606 kg Intake: Intake, IV Amount 1100 160 Piperacillin Sodium/ 100 50 Tazobact 3.375 gm In Sodium Chloride 0.9% 50 ml @ 100 mls/hr IV Q8HR [facility] Rx#:[id number] Sodium Chloride 0.9% 1, 1000 000 ml @ 100 mls/hr IV . Q10H [facility] Rx#:[id number] Sodium Ferric Gluconate 110 125 mg In Sodium Chloride 0.9% 100 ml @ 100 mls/hr IV DAILY [facility] Rx#: [id number] Oral 460 650 Output: Urine 650 Other: # Voids 4 # Bowel Movements 5 3 Stool Characteristics Soft Soft Brown Brown Bloody Bloody Weight Source Bedscale Bedscale Active Medications: Current Medications Acetaminophen (Tylenol) 650 mg PO Q4H PRN PRN Reason: Pain Or Fever above 101 Stop: 07/09/18 12:24 Acetaminophen/Hydrocodone Bitart ([place] 5mg/325mg) 1 tab PO Q4H PRN PRN Reason: Pain (Moderate) Stop: 07/09/18 12:22 Amiodarone HCl (Cordarone) 150 mg IV STAT PRN PRN PRN Reason: Cardiac Arrhythmia Stop: 07/09/18 12:26 Aspirin (Aspirin Chewable) 81 mg PO DAILY [facility] Stop: 07/10/18 08:59 Last Admin: 05/14/18 09:00 Dose: Not Given Atorvastatin Calcium (Lipitor) 10 mg PO DAILY [facility]; Protocol Stop: 07/10/18 08:59 Last Admin: 05/14/18 09:00 Dose: Not Given Atropine Sulfate (Atropine Syringe) 0.5 mg IVP PRN PRN PRN Reason: Cardiac Arrhythmia Stop: 07/09/18 12:34 [place] Oil/[place] Balsam/Trypsin (Venelex) 1 appl TP DAILY [facility] Stop: 07/13/18 11:59 Last Admin: 05/14/18 17:19 Dose: 1 appl Donepezil HCl (Aricept) 5 mg PO HS [facility] Stop: 07/09/18 20:59 Last Admin: 05/13/18 21:20 Dose: 5 mg Ferrous Sulfate (Iron) 325 mg PO DAILY [facility] Stop: 07/09/18 11:59 Last Admin: 05/14/18 09:00 Dose: Not Given Heparin Sodium (Porcine) (Heparin) 5,000 units SUBQ Q12HR [facility] Stop: 07/09/18 20:59 Last Admin: 05/14/18 09:00 Dose: Not Given Hydrocortisone Sodium Succinate (Solu-Cortef) 100 mg IVP Q8HR [facility] Stop: 07/09/18 12:59 Last Admin: 05/14/18 13:26 Dose: 100 mg Norepinephrine Bitartrate 8 mg (/ Dextrose) 258 mls @ 0 mls/hr IV TITR PRN; Protocol PRN Reason: To Keep SBP Above 90 Stop: 07/09/18 00:36 Last Titration: 05/10/18 14:15 Dose: 0 mcg/min, 0 mls/hr Sodium Chloride (Nacl 0.9%) 1,000 mls @ 100 mls/hr IV .Q10H [facility] Stop: 07/09/18 12:52 Last Admin: 05/13/18 22:30 Dose: 100 mls/hr Vancomycin HCl 1.25 gm/ Sodium (Chloride) 250 mls @ 165 mls/hr IV Q24H [facility] Stop: 07/09/18 15:59 Last Admin: 05/14/18 16:47 Dose: 165 mls/hr Piperacillin Sod/Tazobactam (Sod 3.375 gm/ Sodium Chloride) 50 mls @ 100 mls/ hr IV Q8HR [facility] Stop: 07/09/18 12:59 Last Infusion: 05/14/18 14:00 Dose: Infused Ferric Sodium Gluconate Complex 125 mg/ Sodium Chloride 110 mls @ 100 mls/hr IV DAILY [facility] Stop: 07/11/18 13:29 Last Infusion: 05/14/18 12:25 Dose: Infused Lactulose (Cephulac) 20 gm PO TID [facility] Stop: 07/09/18 13:59 Last Admin: 05/14/18 13:26 Dose: 20 gm Lorazepam (Ativan) 0.5 mg IV Q6HR PRN; Protocol PRN Reason: Agitation Stop: 07/09/18 00:33 Last Admin: 05/10/18 01:35 Dose: 0.5 mg Lorazepam (Ativan) 0.5 mg PO Q6HR PRN; Protocol PRN Reason: Agitation Stop: 07/09/18 12:10 Magnesium Chloride (Slow-Mag) 1 ect PO DAILY [facility] Stop: 07/10/18 08:59 Last Admin: 05/14/18 09:00 Dose: Not Given Metoclopramide HCl (Reglan) 10 mg IVP Q8HR PRN PRN Reason: Abdominal Pain Stop: 07/09/18 12:14 Miscellaneous (Vancomycin Iv Per Pharmacy) 1 ea MC DAILY [facility] Stop: 07/10/18 08:59 Morphine Sulfate (Morphine) 1 mg IVP Q4H PRN PRN Reason: Severe Pain Stop: 07/09/18 13:47 Ondansetron HCl (Zofran) 4 mg IV Q8H PRN PRN Reason: Nausea / Vomiting Stop: 07/09/18 12:48 Pantoprazole Sodium (Protonix) 40 mg PO DAILY [facility] Stop: 07/10/18 11:44 Last Admin: 05/14/18 09:00 Dose: Not Given General: lethargic, congested HEENT: NC/AT Neck: Supple, No JVD, No thyromegaly, No LAD Lungs: other (few wheezing bl.) Cardiovascular: other (iregular.) Abdomen: soft, non-tender, non-distended, positive bowel sound Extremities: clear - Procedures Procedures: Procedures Procedure Code Date TRANSFUSE NONAUT RED BLOOD CELLS IN PERIPH VEIN, PERC 01693S1 05/09/18 Internal Medicine Assmt/Plan - Assessment Assessment: S/P EGD today: gastritis; esophagitis. ALOC: on and off, observe closely in ICU. Hypotension: close monitoring in ICU. sepsis: improving. Rt Scrotal abscess with drainage: G/s, C&S ordered; Surgical consult appreciated. PNA: IVPB ABX. Anemia: OB +x3; s/p PRBC. CAD: s/p VT h/o A. Fib: rate controlled. PVD Nutritional Asmnt/Malnutr-PDOC - Dietary Evaluation Malnutrition Findings (Please click <Entered> for more info): Nutritional Asmnt/Malnutrition Start: 05/10/18 14: 28 Text: Status: Complete Freq: Protocol: Document 05/10/18 14:29 LCHENG (Rec: 05/10/18 14:39 [email or web address] [id number]) Nutritional Asmnt/Malnutrition Patient General Information Nutritional Screening High Risk Diagnosis PNA, hypotension Pertinent Medical Hx/Surgical Hx PNA, COPD, mild alzheimer, PVD , UTI, sepsis Subjective Information Consult received for Tripp score 12. Pt seen resting in bed at time of visit. Per RN, pt is on levophed. pt likes to eat, consumed about 50% of breakfast this morning. Pt took long time to chew food per RN. Current Diet Order/ Nutrition Support cardiac, soft Pertinent Medications Iron, cephulac, piperacillin, nacl 0.9%, vancomycin Pertinent Labs 05/10 Cl 110, glucose 115, Ca 8 .3, alb 2.4 Nutritional Hx/Data Height 1.63 m Height (Calculated Centimeters) 162.6 Current Weight (lbs) 58.967 kg Weight (Calculated Kilograms) 59.0 Weight (Calculated Grams) 93111.0 [place] Body Weight 130 Body Mass Index (BMI) 22.3 Weight Status Approriate GI Symptoms GI Symptoms None Last BM not indicated Difficult in: None Skin Integrity/Comment: scar from old pressure ulcer to sacrum Tripp score 12 Current %PO Fair (50-74%) Estimated Nutritional Goals BEE in Kcals: Using Current wt Calories/Kcals/Kg 27-32 Kcals Calculated 7186-8605 Protein: Using Current wt Protein g/k-1.2 Protein Calculated 59-71 Fluid: ml 1593-1888ml (1ml/kcal) Nutritional Problem 2. Problem Problem increased nutrition needs Etiology increased metabolic demand Signs/Symptoms: dx of PNA 1. Problem Problem altered nutrition relatedl abs Etiology electrolytes imbalance Signs/Symptoms: cl 110, Ca 8.3 Malnutrition Alert Is there a minimum of two criteria No selected? Query Text:Check all the applicable criteria. A minimum of two criteria are recommended for diagnosis of either severe or non-severe malnutrition. Malnutrition Related to Morbid Obesity Malnutrition related to morbid obesity No Intervention/Recommendation Comments 1. Continue with cardiac diet as ordered. Recommend [facility] soft ground diet d/g pt having difficulty of chewing. REENA Trinidad notified. 2. Monitor PO intake, wt, labs and skin integrity 3. F/U as high risk in 2-3 days, 05/12-05/13 Expected Outcomes/Goals Expected Outcomes/Goals 1. PO intake to meet at least 75% of nutritional needs. 2. Wt stability, skin to remain intact, labs to approach WNL.
[2018-05-15] MEDS: Sodium Chloride 0.9% 1,000 ML IV SCH (04:31)
[2018-05-15] MEDS: Hydrocortisone Sodium Succ 100 mg Vial IVP SCH ×3 (04:31→21:34)
[2018-05-15 04:39] LABS: HEMOGLOBIN 9.8 gm/dL (12-16); MEAN CORPUSCULAR HEMOGLOBIN 27.7 pg (27.0-31.0); MEAN CORPUSCULAR HGB CONC 33.8 pg (28.0-36.0); MEAN PLATELET VOLUME 7.3 fl; PLATELET COUNT 371 Th/cmm (150-400); RED BLOOD COUNT 3.53 Mil/cmm (3.80-5.80); RED CELL DISTRIBUTION WIDTH 16.2 % (11.5-20.0); WHITE BLOOD COUNT 8.4 Th/cmm (4.8-10.8)
[2018-05-15 05:16] LABS: BAND NEUTROPHILE 2 % (0-10); LYMPHOCYTE 9 % (20-50); NEUTROPHILS 89 % (40-80); PLATELET ESTIMATE ADEQUATE (NORMAL)
[2018-05-15 05:21] LABS: ANION GAP 11.4 (7.0-16.0); BUN - UREA NITROGEN 18 mg/dL (7-25); CALCIUM SERUM 8.3 mg/dL (8.6-10.3); CARBON DIOXIDE 20.9 mEq/L (21.0-31.0); CHLORIDE 110 mEq/L (98-107); CREATININE - SERUM 0.9 mg/dL (0.7-1.3); GLUCOSE 105 mg/dL (70-105); POTASSIUM SERUM 3.3 mEq/L (3.5-5.1); SODIUM SERUM 139 mEq/L (136-145)
[2018-05-15] MEDS: Lactulose 10 Gm/15 mL 30mL UDC PO SCH ×3 (08:49→21:34)
[2018-05-15] MEDS: Pantoprazole 40 mg EC Tab PO SCH (09:05)
[2018-05-15] MEDS: Magnesium Chloride EC 64mg Tab PO SCH (09:05)
[2018-05-15] MEDS: Atorvastatin Calcium 10 MG TAB PO SCH (09:05)
[2018-05-15] MEDS: Venelex 60gm Tube TP SCH (09:05)
[2018-05-15] MEDS: Ferrous Sulfate 325 MG TAB PO SCH (09:05)
[2018-05-15] MEDS: Aspirin 81mg Chewable Tab PO SCH (09:05)
[2018-05-15] MEDS: Sodium Ferric Gluconate 125 MG in Sodium Chloride 0.9% 100 ML IV SCH (09:07)
--- NOTE | 2018-05-15 09:24 | GI Progress Note ---
Subjective - Review of Systems Service Date: 05/15/18 Subjective: No overt bleeding Objective - Results Result Diagrams: 05/15/18 04:30 05/15/18 04:30 Recent Labs: Laboratory Last Values WBC 8.4 Th/cmm (4.8-10.8) 05/15/18 04:30 RBC 3.53 Mil/cmm (3.80-5.80) L 05/15/18 04:30 Hgb 9.8 gm/dL (12-16) L 05/15/18 04:30 Hct 29.0 % (41.0-60) L 05/15/18 04:30 MCV 82.0 fl (80-99) 05/15/18 04:30 MCH 27.7 pg (27.0-31.0) 05/15/18 04:30 MCHC Differential 33.8 pg (28.0-36.0) 05/15/18 04:30 RDW 16.2 % (11.5-20.0) 05/15/18 04:30 Plt Count 371 Th/cmm (150-400) 05/15/18 04:30 MPV 7.3 fl 05/15/18 04:30 Add Manual Diff YES 05/15/18 04:30 Band Neutrophils % 2 % (0-10) 05/15/18 04:30 Neutrophils (Manual) 89 % (40-80) H 05/15/18 04:30 Lymphocytes 9 % (20-50) L 05/15/18 04:30 Monocytes 1 % (2-10) L 05/14/18 04:20 Eosinophils 0 % (0-5) 05/13/18 05:40 Basophils 0 % (0-3) 05/13/18 05:40 Platelet Estimate ADEQUATE (NORMAL) 05/15/18 04:30 Total Retics Counted 1.1 % (0.5-1.5) 05/14/18 04:20 Absolute Retic 35.8 Th/cmm 05/14/18 04:20 Corrected Retic Count 0.7 % (0.5-1.5) 05/14/18 04:20 Plt Count 286 Th/cmm (150-750) 05/11/18 06:10 PT 11.6 SECONDS (9.5-11.5) H 05/14/18 04:20 INR 1.11 (0.5-1.4) 05/14/18 04:20 PTT (Actin FS) 29.0 SECONDS (26.0-38.0) 05/14/18 04:20 Fibrinogen 348.0 mg/dL (200.0-400.0) 05/11/18 06:10 D-Dimer 979 ng/mL (100-400) H 05/11/18 06:10 Sodium 139 mEq/L (136-145) 05/15/18 04:30 Potassium 3.3 mEq/L (3.5-5.1) L 05/15/18 04:30 Chloride 110 mEq/L (98-107) H 05/15/18 04:30 Carbon Dioxide 20.9 mEq/L (21.0-31.0) L 05/15/18 04:30 Anion Gap 11.4 (7.0-16.0) 05/15/18 04:30 BUN 18 mg/dL (7-25) 05/15/18 04:30 Creatinine 0.9 mg/dL (0.7-1.3) 05/15/18 04:30 Est GFR ( Amer) TNP 05/15/18 04:30 Est GFR (Non-Af Amer) TNP 05/15/18 04:30 BUN/Creatinine Ratio 20.0 05/15/18 04:30 Glucose 105 mg/dL (70-105) 05/15/18 04:30 POC Glucose 165 MG/DL (70-105) H 05/09/18 21:42 Calcium 8.3 mg/dL (8.6-10.3) L 05/15/18 04:30 Phosphorus 3.9 mg/dL (2.5-5.0) 05/11/18 04:45 Magnesium 2.0 mg/dL (1.9-2.7) 05/11/18 04:45 Iron 17 ug/dL (38-169) L 05/11/18 04:45 TIBC 234 ug/dL (250-450) L 05/11/18 04:45 Iron Saturation 7 % (15-55) L 05/11/18 04:45 Unsaturated IBC 217 ug/dL (111-343) 05/11/18 04:45 Ferritin 76 ng/mL (30-400) 05/11/18 04:45 Total Bilirubin 0.2 mg/dL (0.3-1.0) L 05/12/18 04:40 Direct Bilirubin 0.13 mg/dL (0.0-0.2) 05/11/18 04:45 AST 13 U/L (13-39) 05/12/18 04:40 ALT 10 U/L (7-52) 05/12/18 04:40 Alkaline Phosphatase 80 U/L (34-104) 05/12/18 04:40 Troponin I 0.03 ng/mL (0.01-0.05) 05/10/18 04:35 Total Protein 4.9 gm/dL (6.0-8.3) L 05/12/18 04:40 Albumin 2.3 gm/dL (4.2-5.5) L 05/12/18 04:40 Globulin 2.6 gm/dL 05/12/18 04:40 Albumin/Globulin Ratio 0.9 (1.0-1.8) L 05/12/18 04:40 Vitamin B12 982 pg/mL (232-1245) 05/11/18 04:45 Folic Acid 12.7 ng/mL (>3.0) 05/11/18 04:45 Stool Occult Blood POSITIVE (NEGATIVE) H 05/11/18 19:00 Vancomycin Trough 14.1 ug/mL (5-10) H 05/12/18 15:10 Blood Type A POSITIVE 05/10/18 08:10 Antibody Screen NEGATIVE 05/10/18 08:10 Crossmatch See Detail 05/10/18 08:10 - Physical Exam Vitals and I&O: Vital Signs Temp 98 F 05/15/18 04:00 Pulse 63 05/15/18 06:00 Resp 15 05/15/18 06:00 BP 139/65 05/15/18 06:00 Pulse Ox 96 05/15/18 06:00 Intake & Output 05/14/18 05/15/18 05/15/18 18:59 06:59 18:59 Intake Total 1810 348.333 Output Total 400 Balance 1810 -51.667 Weight (lbs) 57.606 kg 57.697 kg Intake: Intake, IV Amount 1160 248.333 Piperacillin Sodium/ 50 100 Tazobact 3.375 gm In Sodium Chloride 0.9% 50 ml @ 100 mls/hr IV Q8HR [facility] Rx#:[id number] Sodium Chloride 0.9% 1, 1000 148.333 000 ml @ 100 mls/hr IV . Q10H [facility] Rx#:[id number] Sodium Ferric Gluconate 110 125 mg In Sodium Chloride 0.9% 100 ml @ 100 mls/hr IV DAILY [facility] Rx#: [id number] Oral 650 100 Output: Urine 400 Other: # Voids 4 # Bowel Movements 3 1 Stool Characteristics Soft Soft Brown Brown Bloody Weight Source Bedscale Bedscale Active Medications: Current Medications Acetaminophen (Tylenol) 650 mg PO Q4H PRN PRN Reason: Pain Or Fever above 101 Stop: 07/09/18 12:24 Acetaminophen/Hydrocodone Bitart ([place] 5mg/325mg) 1 tab PO Q4H PRN PRN Reason: Pain (Moderate) Stop: 07/09/18 12:22 Amiodarone HCl (Cordarone) 150 mg IV STAT PRN PRN PRN Reason: Cardiac Arrhythmia Stop: 07/09/18 12:26 Aspirin (Aspirin Chewable) 81 mg PO DAILY [facility] Stop: 07/10/18 08:59 Last Admin: 05/15/18 09:05 Dose: 81 mg Atorvastatin Calcium (Lipitor) 10 mg PO DAILY [facility]; Protocol Stop: 07/10/18 08:59 Last Admin: 05/15/18 09:05 Dose: 10 mg Atropine Sulfate (Atropine Syringe) 0.5 mg IVP PRN PRN PRN Reason: Cardiac Arrhythmia Stop: 07/09/18 12:34 [place] Oil/[place] Balsam/Trypsin (Venelex) 1 appl TP DAILY [facility] Stop: 07/13/18 11:59 Last Admin: 05/15/18 09:05 Dose: 1 appl Donepezil HCl (Aricept) 5 mg PO HS [facility] Stop: 07/09/18 20:59 Last Admin: 05/14/18 20:34 Dose: 5 mg Ferrous Sulfate (Iron) 325 mg PO DAILY [facility] Stop: 07/09/18 11:59 Last Admin: 05/15/18 09:05 Dose: 325 mg Heparin Sodium (Porcine) (Heparin) 5,000 units SUBQ Q12HR [facility] Stop: 07/09/18 20:59 Last Admin: 05/15/18 09:05 Dose: 5,000 units Hydrocortisone Sodium Succinate (Solu-Cortef) 100 mg IVP Q8HR [facility] Stop: 07/09/18 12:59 Last Admin: 05/15/18 04:31 Dose: 100 mg Norepinephrine Bitartrate 8 mg (/ Dextrose) 258 mls @ 0 mls/hr IV TITR PRN; Protocol PRN Reason: To Keep SBP Above 90 Stop: 07/09/18 00:36 Last Titration: 05/10/18 14:15 Dose: 0 mcg/min, 0 mls/hr Sodium Chloride (Nacl 0.9%) 1,000 mls @ 100 mls/hr IV .Q10H [facility] Stop: 07/09/18 12:52 Last Infusion: 05/15/18 06:00 Dose: 100 mls/hr Vancomycin HCl 1.25 gm/ Sodium (Chloride) 250 mls @ 165 mls/hr IV Q24H [facility] Stop: 07/09/18 15:59 Last Admin: 05/14/18 16:47 Dose: 165 mls/hr Piperacillin Sod/Tazobactam (Sod 3.375 gm/ Sodium Chloride) 50 mls @ 100 mls/ hr IV Q8HR [facility] Stop: 07/09/18 12:59 Last Infusion: 05/15/18 05:01 Dose: Infused Ferric Sodium Gluconate Complex 125 mg/ Sodium Chloride 110 mls @ 100 mls/hr IV DAILY [facility] Stop: 07/11/18 13:29 Last Admin: 05/15/18 09:07 Dose: 100 mls/hr Lactulose (Cephulac) 20 gm PO TID [facility] Stop: 07/09/18 13:59 Last Admin: 05/15/18 08:49 Dose: Not Given Lorazepam (Ativan) 0.5 mg IV Q6HR PRN; Protocol PRN Reason: Agitation Stop: 07/09/18 00:33 Last Admin: 05/10/18 01:35 Dose: 0.5 mg Lorazepam (Ativan) 0.5 mg PO Q6HR PRN; Protocol PRN Reason: Agitation Stop: 07/09/18 12:10 Magnesium Chloride (Slow-Mag) 1 ect PO DAILY [facility] Stop: 07/10/18 08:59 Last Admin: 05/15/18 09:05 Dose: 1 ect Metoclopramide HCl (Reglan) 10 mg IVP Q8HR PRN PRN Reason: Abdominal Pain Stop: 07/09/18 12:14 Miscellaneous (Vancomycin Iv Per Pharmacy) 1 ea MC DAILY [facility] Stop: 07/10/18 08:59 Morphine Sulfate (Morphine) 1 mg IVP Q4H PRN PRN Reason: Severe Pain Stop: 07/09/18 13:47 Ondansetron HCl (Zofran) 4 mg IV Q8H PRN PRN Reason: Nausea / Vomiting Stop: 07/09/18 12:48 Pantoprazole Sodium (Protonix) 40 mg PO DAILY [facility] Stop: 07/10/18 11:44 Last Admin: 05/15/18 09:05 Dose: 40 mg General: No acute distress HEENT: Atraumatic Neck: Supple Cardiovascular: Regular rate Lungs: Clear to auscultation Abdomen: Bowel sounds, Soft, no Tender, no Hepatomegaly, no Splenomegaly, no Distended, no Rebound, no Mass - Procedures Procedures: Procedures Procedure Code Date TRANSFUSE NONAUT RED BLOOD CELLS IN PERIPH VEIN, PERC 99610K4 05/09/18 Assessment/Plan - Assessment Assessment: 1. ANEMIA, MULTIFACTORIAL. 2. FOBT POSITIVE. 3. DEMENTIA. 4. H/O A FIB, HTN. 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 Alder was not possible as pt did not drink his prep. Plan: 1. Alder can be done electively as outpt. Pt may be able to have easier bowel preps outside of the hospital 2. MONITOR HGB; TRANSFUSE PRN. 3. DIET ANAID. 4. follow up gastric biopsies
[2018-05-15] MEDS ORDERED: KCL 20mEq/100mL Premix 20 MEQ/100 ML PIGGYBACK IV ONE (10:58)
--- NOTE | 2018-05-15 11:50 | Pathology Report ---
[id number] Collection date: 05/14/2018 Surgeon: Dr. Suzanne Hartman Specimen Description: 1. Antrum biopsy 2. Esophageal z-line biopsy Gross Description: Part I: Received in formalin are two duque soft tissue fragments ranging from 0.1 to 0.2 cm in greatest dimension. Totally submitted in one cassette labeled A. Gross Description: Part II: Received in formalin are two duque soft tissue fragments each measuring 0.1 cm in greatest dimension. Totally submitted in one cassette labeled B. Microscopic Description: Part I: The histologic sections show gastric mucosa with mild chronic inflammation present consisting of lymphocytes and plasma cells. The Giemsa stain shows no evidence for Helicobacter pylori. Diagnosis: Part I: 1. Chronic gastritis, antrum biopsy. 2. The Giemsa stain is negative for Helicobacter pylori. Microscopic Description: Part II: The histologic sections show squamous and glandular mucosa with chronic inflammation present consisting of lymphocytes and plasma cells. The Giemsa stain shows focal areas of glandular metaplasia (goblet cell metaplasia). The PAS stain shows no evidence for fungal organisms. Diagnosis: Part II: 1. Chronic inflammation consistent with esophagogastritis (z-line biopsy). 2. There are focal areas of glandular metaplasia present, consistent with Osorio's esophagus. Comment: There is no evidence for dysplasia. [facility]# [id number] [facility]
--- NOTE | 2018-05-15 12:48 | Internal Medicine Prog Note ---
Internal Medicine Subjective - Subjective Service Date: 05/15/18 Patient seen and examined:: without staff Patient is:: asleep, eyes closed, in bed, agitated Per staff patient has:: no adverse event Internal Medicine Objective - Results Result Diagrams: 05/15/18 04:30 05/15/18 04:30 Recent Labs: Laboratory Last Values WBC 8.4 Th/cmm (4.8-10.8) 05/15/18 04:30 RBC 3.53 Mil/cmm (3.80-5.80) L 05/15/18 04:30 Hgb 9.8 gm/dL (12-16) L 05/15/18 04:30 Hct 29.0 % (41.0-60) L 05/15/18 04:30 MCV 82.0 fl (80-99) 05/15/18 04:30 MCH 27.7 pg (27.0-31.0) 05/15/18 04:30 MCHC Differential 33.8 pg (28.0-36.0) 05/15/18 04:30 RDW 16.2 % (11.5-20.0) 05/15/18 04:30 Plt Count 371 Th/cmm (150-400) 05/15/18 04:30 MPV 7.3 fl 05/15/18 04:30 Add Manual Diff YES 05/15/18 04:30 Band Neutrophils % 2 % (0-10) 05/15/18 04:30 Neutrophils (Manual) 89 % (40-80) H 05/15/18 04:30 Lymphocytes 9 % (20-50) L 05/15/18 04:30 Monocytes 1 % (2-10) L 05/14/18 04:20 Eosinophils 0 % (0-5) 05/13/18 05:40 Basophils 0 % (0-3) 05/13/18 05:40 Platelet Estimate ADEQUATE (NORMAL) 05/15/18 04:30 Total Retics Counted 1.1 % (0.5-1.5) 05/14/18 04:20 Absolute Retic 35.8 Th/cmm 05/14/18 04:20 Corrected Retic Count 0.7 % (0.5-1.5) 05/14/18 04:20 Plt Count 286 Th/cmm (150-750) 05/11/18 06:10 PT 11.6 SECONDS (9.5-11.5) H 05/14/18 04:20 INR 1.11 (0.5-1.4) 05/14/18 04:20 PTT (Actin FS) 29.0 SECONDS (26.0-38.0) 05/14/18 04:20 Fibrinogen 348.0 mg/dL (200.0-400.0) 05/11/18 06:10 D-Dimer 979 ng/mL (100-400) H 05/11/18 06:10 Sodium 139 mEq/L (136-145) 05/15/18 04:30 Potassium 3.3 mEq/L (3.5-5.1) L 05/15/18 04:30 Chloride 110 mEq/L (98-107) H 05/15/18 04:30 Carbon Dioxide 20.9 mEq/L (21.0-31.0) L 05/15/18 04:30 Anion Gap 11.4 (7.0-16.0) 05/15/18 04:30 BUN 18 mg/dL (7-25) 05/15/18 04:30 Creatinine 0.9 mg/dL (0.7-1.3) 05/15/18 04:30 Est GFR ( Amer) TNP 05/15/18 04:30 Est GFR (Non-Af Amer) TNP 05/15/18 04:30 BUN/Creatinine Ratio 20.0 05/15/18 04:30 Glucose 105 mg/dL (70-105) 05/15/18 04:30 POC Glucose 165 MG/DL (70-105) H 05/09/18 21:42 Calcium 8.3 mg/dL (8.6-10.3) L 05/15/18 04:30 Phosphorus 3.9 mg/dL (2.5-5.0) 05/11/18 04:45 Magnesium 2.0 mg/dL (1.9-2.7) 05/11/18 04:45 Iron 17 ug/dL (38-169) L 05/11/18 04:45 TIBC 234 ug/dL (250-450) L 05/11/18 04:45 Iron Saturation 7 % (15-55) L 05/11/18 04:45 Unsaturated IBC 217 ug/dL (111-343) 05/11/18 04:45 Ferritin 76 ng/mL (30-400) 05/11/18 04:45 Total Bilirubin 0.2 mg/dL (0.3-1.0) L 05/12/18 04:40 Direct Bilirubin 0.13 mg/dL (0.0-0.2) 05/11/18 04:45 AST 13 U/L (13-39) 05/12/18 04:40 ALT 10 U/L (7-52) 05/12/18 04:40 Alkaline Phosphatase 80 U/L (34-104) 05/12/18 04:40 Troponin I 0.03 ng/mL (0.01-0.05) 05/10/18 04:35 Total Protein 4.9 gm/dL (6.0-8.3) L 05/12/18 04:40 Albumin 2.3 gm/dL (4.2-5.5) L 05/12/18 04:40 Globulin 2.6 gm/dL 05/12/18 04:40 Albumin/Globulin Ratio 0.9 (1.0-1.8) L 05/12/18 04:40 Vitamin B12 982 pg/mL (232-1245) 05/11/18 04:45 Folic Acid 12.7 ng/mL (>3.0) 05/11/18 04:45 Stool Occult Blood POSITIVE (NEGATIVE) H 05/11/18 19:00 Vancomycin Trough 14.1 ug/mL (5-10) H 05/12/18 15:10 Blood Type A POSITIVE 05/10/18 08:10 Antibody Screen NEGATIVE 05/10/18 08:10 Crossmatch See Detail 05/10/18 08:10 - Physical Exam Vitals and I&O: Vital Signs Temp 97.1 F 05/15/18 12:00 Pulse 60 05/15/18 12:00 Resp 12 05/15/18 12:00 BP 114/50 05/15/18 12:00 Pulse Ox 98 05/15/18 12:00 Intake & Output 05/14/18 05/15/18 05/15/18 18:59 06:59 18:59 Intake Total 1810 348.333 Output Total 400 Balance 1810 -51.667 Weight (lbs) 57.606 kg 57.697 kg Intake: Intake, IV Amount 1160 248.333 Piperacillin Sodium/ 50 100 Tazobact 3.375 gm In Sodium Chloride 0.9% 50 ml @ 100 mls/hr IV Q8HR [facility] Rx#:[id number] Sodium Chloride 0.9% 1, 1000 148.333 000 ml @ 100 mls/hr IV . Q10H [facility] Rx#:[id number] Sodium Ferric Gluconate 110 125 mg In Sodium Chloride 0.9% 100 ml @ 100 mls/hr IV DAILY [facility] Rx#: [id number] Oral 650 100 Output: Urine 400 Other: # Voids 4 # Bowel Movements 3 1 Stool Characteristics Soft Soft Soft Brown Brown Brown Bloody Weight Source Bedscale Bedscale Active Medications: Current Medications Acetaminophen (Tylenol) 650 mg PO Q4H PRN PRN Reason: Pain Or Fever above 101 Stop: 07/09/18 12:24 Acetaminophen/Hydrocodone Bitart ([place] 5mg/325mg) 1 tab PO Q4H PRN PRN Reason: Pain (Moderate) Stop: 07/09/18 12:22 Amiodarone HCl (Cordarone) 150 mg IV STAT PRN PRN PRN Reason: Cardiac Arrhythmia Stop: 07/09/18 12:26 Aspirin (Aspirin Chewable) 81 mg PO DAILY [facility] Stop: 07/10/18 08:59 Last Admin: 05/15/18 09:05 Dose: 81 mg Atorvastatin Calcium (Lipitor) 10 mg PO DAILY [facility]; Protocol Stop: 07/10/18 08:59 Last Admin: 05/15/18 09:05 Dose: 10 mg Atropine Sulfate (Atropine Syringe) 0.5 mg IVP PRN PRN PRN Reason: Cardiac Arrhythmia Stop: 07/09/18 12:34 [place] Oil/[place]est[place] Balsam/Trypsin (Venelex) 1 appl TP DAILY [facility] Stop: 07/13/18 11:59 Last Admin: 05/15/18 09:05 Dose: 1 appl Donepezil HCl (Aricept) 5 mg PO HS [facility] Stop: 07/09/18 20:59 Last Admin: 05/14/18 20:34 Dose: 5 mg Ferrous Sulfate (Iron) 325 mg PO DAILY [facility] Stop: 07/09/18 11:59 Last Admin: 05/15/18 09:05 Dose: 325 mg Heparin Sodium (Porcine) (Heparin) 5,000 units SUBQ Q12HR [facility] Stop: 07/09/18 20:59 Last Admin: 05/15/18 09:05 Dose: 5,000 units Hydrocortisone Sodium Succinate (Solu-Cortef) 100 mg IVP Q8HR [facility] Stop: 07/09/18 12:59 Last Admin: 05/15/18 04:31 Dose: 100 mg Norepinephrine Bitartrate 8 mg (/ Dextrose) 258 mls @ 0 mls/hr IV TITR PRN; Protocol PRN Reason: To Keep SBP Above 90 Stop: 07/09/18 00:36 Last Titration: 05/10/18 14:15 Dose: 0 mcg/min, 0 mls/hr Sodium Chloride (Nacl 0.9%) 1,000 mls @ 100 mls/hr IV .Q10H [facility] Stop: 07/09/18 12:52 Last Infusion: 05/15/18 06:00 Dose: 100 mls/hr Vancomycin HCl 1.25 gm/ Sodium (Chloride) 250 mls @ 165 mls/hr IV Q24H [facility] Stop: 07/09/18 15:59 Last Admin: 05/14/18 16:47 Dose: 165 mls/hr Piperacillin Sod/Tazobactam (Sod 3.375 gm/ Sodium Chloride) 50 mls @ 100 mls/ hr IV Q8HR [facility] Stop: 07/09/18 12:59 Last Infusion: 05/15/18 05:01 Dose: Infused Ferric Sodium Gluconate Complex 125 mg/ Sodium Chloride 110 mls @ 100 mls/hr IV DAILY [facility] Stop: 07/11/18 13:29 Last Admin: 05/15/18 09:07 Dose: 100 mls/hr Potassium Chloride (Potassium Chloride) 20 meq in 100 mls @ 50 mls/hr IV X1 ONE Stop: 05/15/18 12:57 Last Admin: 05/15/18 11:09 Dose: 50 mls/hr Lactulose (Cephulac) 20 gm PO TID [facility] Stop: 07/09/18 13:59 Last Admin: 05/15/18 08:49 Dose: Not Given Lorazepam (Ativan) 0.5 mg IV Q6HR PRN; Protocol PRN Reason: Agitation Stop: 07/09/18 00:33 Last Admin: 05/10/18 01:35 Dose: 0.5 mg Lorazepam (Ativan) 0.5 mg PO Q6HR PRN; Protocol PRN Reason: Agitation Stop: 07/09/18 12:10 Magnesium Chloride (Slow-Mag) 1 ect PO DAILY [facility] Stop: 07/10/18 08:59 Last Admin: 05/15/18 09:05 Dose: 1 ect Metoclopramide HCl (Reglan) 10 mg IVP Q8HR PRN PRN Reason: Abdominal Pain Stop: 07/09/18 12:14 Miscellaneous (Vancomycin Iv Per Pharmacy) 1 ea MC DAILY [facility] Stop: 07/10/18 08:59 Morphine Sulfate (Morphine) 1 mg IVP Q4H PRN PRN Reason: Severe Pain Stop: 07/09/18 13:47 Ondansetron HCl (Zofran) 4 mg IV Q8H PRN PRN Reason: Nausea / Vomiting Stop: 07/09/18 12:48 Pantoprazole Sodium (Protonix) 40 mg PO DAILY [facility] Stop: 07/10/18 11:44 Last Admin: 05/15/18 09:05 Dose: 40 mg General: lethargic, congested HEENT: NC/AT Neck: Supple, No JVD, No thyromegaly, No LAD Lungs: other (few wheezing bl.) Cardiovascular: other (iregular.) Abdomen: soft, non-tender, non-distended, positive bowel sound Extremities: clear - Procedures Procedures: Procedures Procedure Code Date TRANSFUSE NONAUT RED BLOOD CELLS IN PERIPH VEIN, PERC 53219C1 05/09/18 Internal Medicine Assmt/Plan - Assessment Assessment: ALOC: on and off, observe closely in ICU. S/P EGD today: gastritis; esophagitis. Hypotension: close monitoring in ICU. sepsis: improving. Rt Scrotal abscess with drainage: G/s, C&S ordered; Surgical consult appreciated. PNA: IVPB ABX. Anemia: OB +x3; s/p PRBC. CAD: s/p ND h/o A. Fib: rate controlled. PVD Nutritional Asmnt/Malnutr-PDOC - Dietary Evaluation Malnutrition Findings (Please click <Entered> for more info): Nutritional Asmnt/Malnutrition Start: 05/10/18 14: 28 Text: Status: Complete Freq: Protocol: Document 05/10/18 14:29 LCHENG (Rec: 05/10/18 14:39 LCHENG [id number]) Nutritional Asmnt/Malnutrition Patient General Information Nutritional Screening High Risk Diagnosis PNA, hypotension Pertinent Medical Hx/Surgical Hx PNA, COPD, mild alzheimer, PVD , UTI, sepsis Subjective Information Consult received for Tripp score 12. Pt seen resting in bed at time of visit. Per RN, pt is on levophed. pt likes to eat, consumed about 50% of breakfast this morning. Pt took long time to chew food per RN. Current Diet Order/ Nutrition Support cardiac, soft Pertinent Medications Iron, cephulac, piperacillin, nacl 0.9%, vancomycin Pertinent Labs 05/10 Cl 110, glucose 115, Ca 8 .3, alb 2.4 Nutritional Hx/Data Height 1.63 m Height (Calculated Centimeters) 162.6 Current Weight (lbs) 58.967 kg Weight (Calculated Kilograms) 59.0 Weight (Calculated Grams) 32521.0 [place] Body Weight 130 Body Mass Index (BMI) 22.3 Weight Status Approriate GI Symptoms GI Symptoms None Last BM not indicated Difficult in: None Skin Integrity/Comment: scar from old pressure ulcer to sacrum Tripp score 12 Current %PO Fair (50-74%) Estimated Nutritional Goals BEE in Kcals: Using Current wt Calories/Kcals/Kg 27-32 Kcals Calculated 7384-8624 Protein: Using Current wt Protein g/k-1.2 Protein Calculated 59-71 Fluid: ml 1593-1888ml (1ml/kcal) Nutritional Problem 2. Problem Problem increased nutrition needs Etiology increased metabolic demand Signs/Symptoms: dx of PNA 1. Problem Problem altered nutrition relatedl abs Etiology electrolytes imbalance Signs/Symptoms: cl 110, Ca 8.3 Malnutrition Alert Is there a minimum of two criteria No selected? Query Text:Check all the applicable criteria. A minimum of two criteria are recommended for diagnosis of either severe or non-severe malnutrition. Malnutrition Related to Morbid Obesity Malnutrition related to morbid obesity No Intervention/Recommendation Comments 1. Continue with cardiac diet as ordered. Recommend [facility] soft ground diet d/g pt having difficulty of chewing. RN Vivi notified. 2. Monitor PO intake, wt, labs and skin integrity 3. F/U as high risk in 2-3 days, 05/12-05/13 Expected Outcomes/Goals Expected Outcomes/Goals 1. PO intake to meet at least 75% of nutritional needs. 2. Wt stability, skin to remain intact, labs to approach WNL.
--- NOTE | 2018-05-15 19:57 | General Progress Note ---
Subjective - Review of Systems Service Date: 05/15/18 Events since last encounter: has 2 large inguinal hernias with incarcerated bowel discussed with sone - need to do surgery, informed consentdiscussed, risks, complications , etc with or without surgery Objective - Results Result Diagrams: 05/15/18 04:30 05/15/18 04:30 Recent Labs: Laboratory Last Values WBC 8.4 Th/cmm (4.8-10.8) 05/15/18 04:30 RBC 3.53 Mil/cmm (3.80-5.80) L 05/15/18 04:30 Hgb 9.8 gm/dL (12-16) L 05/15/18 04:30 Hct 29.0 % (41.0-60) L 05/15/18 04:30 MCV 82.0 fl (80-99) 05/15/18 04:30 MCH 27.7 pg (27.0-31.0) 05/15/18 04:30 MCHC Differential 33.8 pg (28.0-36.0) 05/15/18 04:30 RDW 16.2 % (11.5-20.0) 05/15/18 04:30 Plt Count 371 Th/cmm (150-400) 05/15/18 04:30 MPV 7.3 fl 05/15/18 04:30 Add Manual Diff YES 05/15/18 04:30 Band Neutrophils % 2 % (0-10) 05/15/18 04:30 Neutrophils (Manual) 89 % (40-80) H 05/15/18 04:30 Lymphocytes 9 % (20-50) L 05/15/18 04:30 Monocytes 1 % (2-10) L 05/14/18 04:20 Eosinophils 0 % (0-5) 05/13/18 05:40 Basophils 0 % (0-3) 05/13/18 05:40 Platelet Estimate ADEQUATE (NORMAL) 05/15/18 04:30 Total Retics Counted 1.1 % (0.5-1.5) 05/14/18 04:20 Absolute Retic 35.8 Th/cmm 05/14/18 04:20 Corrected Retic Count 0.7 % (0.5-1.5) 05/14/18 04:20 Plt Count 286 Th/cmm (150-750) 05/11/18 06:10 PT 11.6 SECONDS (9.5-11.5) H 05/14/18 04:20 INR 1.11 (0.5-1.4) 05/14/18 04:20 PTT (Actin FS) 29.0 SECONDS (26.0-38.0) 05/14/18 04:20 Fibrinogen 348.0 mg/dL (200.0-400.0) 05/11/18 06:10 D-Dimer 979 ng/mL (100-400) H 05/11/18 06:10 Sodium 139 mEq/L (136-145) 05/15/18 04:30 Potassium 3.3 mEq/L (3.5-5.1) L 05/15/18 04:30 Chloride 110 mEq/L (98-107) H 05/15/18 04:30 Carbon Dioxide 20.9 mEq/L (21.0-31.0) L 05/15/18 04:30 Anion Gap 11.4 (7.0-16.0) 05/15/18 04:30 BUN 18 mg/dL (7-25) 05/15/18 04:30 Creatinine 0.9 mg/dL (0.7-1.3) 05/15/18 04:30 Est GFR ( Amer) TNP 05/15/18 04:30 Est GFR (Non-Af Amer) TNP 05/15/18 04:30 BUN/Creatinine Ratio 20.0 05/15/18 04:30 Glucose 105 mg/dL (70-105) 05/15/18 04:30 POC Glucose 165 MG/DL (70-105) H 05/09/18 21:42 Calcium 8.3 mg/dL (8.6-10.3) L 05/15/18 04:30 Phosphorus 3.9 mg/dL (2.5-5.0) 05/11/18 04:45 Magnesium 2.0 mg/dL (1.9-2.7) 05/11/18 04:45 Iron 17 ug/dL (38-169) L 05/11/18 04:45 TIBC 234 ug/dL (250-450) L 05/11/18 04:45 Iron Saturation 7 % (15-55) L 05/11/18 04:45 Unsaturated IBC 217 ug/dL (111-343) 05/11/18 04:45 Ferritin 76 ng/mL (30-400) 05/11/18 04:45 Total Bilirubin 0.2 mg/dL (0.3-1.0) L 05/12/18 04:40 Direct Bilirubin 0.13 mg/dL (0.0-0.2) 05/11/18 04:45 AST 13 U/L (13-39) 05/12/18 04:40 ALT 10 U/L (7-52) 05/12/18 04:40 Alkaline Phosphatase 80 U/L (34-104) 05/12/18 04:40 Troponin I 0.03 ng/mL (0.01-0.05) 05/10/18 04:35 Total Protein 4.9 gm/dL (6.0-8.3) L 05/12/18 04:40 Albumin 2.3 gm/dL (4.2-5.5) L 05/12/18 04:40 Globulin 2.6 gm/dL 05/12/18 04:40 Albumin/Globulin Ratio 0.9 (1.0-1.8) L 05/12/18 04:40 Vitamin B12 982 pg/mL (232-1245) 05/11/18 04:45 Folic Acid 12.7 ng/mL (>3.0) 05/11/18 04:45 Stool Occult Blood POSITIVE (NEGATIVE) H 05/11/18 19:00 Vancomycin Trough 14.1 ug/mL (5-10) H 05/12/18 15:10 Blood Type A POSITIVE 05/10/18 08:10 Antibody Screen NEGATIVE 05/10/18 08:10 Crossmatch See Detail 05/10/18 08:10 - Physical Exam Vitals and I&O: Vital Signs Temp 98.8 F 05/15/18 16:00 Pulse 93 05/15/18 16:00 Resp 18 05/15/18 16:00 BP 141/68 05/15/18 16:00 Pulse Ox 100 05/15/18 16:00 Intake & Output 05/15/18 05/15/18 05/16/18 06:59 18:59 06:59 Intake Total 348.333 800 Output Total 400 Balance -51.667 800 Weight (lbs) 57.697 kg 57.606 kg Intake: Intake, IV Amount 248.333 50 Piperacillin Sodium/ 100 50 Tazobact 3.375 gm In Sodium Chloride 0.9% 50 ml @ 100 mls/hr IV Q8HR [facility] Rx#:[id number] Sodium Chloride 0.9% 1, 148.333 000 ml @ 100 mls/hr IV . Q10H [facility] Rx#:[id number] Oral 100 750 Output: Urine 400 Other: # Voids 3 # Bowel Movements 1 2 Stool Characteristics Soft Soft Brown Brown Weight Source Bedscale Bedscale Active Medications: Current Medications Acetaminophen (Tylenol) 650 mg PO Q4H PRN PRN Reason: Pain Or Fever above 101 Stop: 07/09/18 12:24 Acetaminophen/Hydrocodone Bitart ([place] 5mg/325mg) 1 tab PO Q4H PRN PRN Reason: Pain (Moderate) Stop: 07/09/18 12:22 Amiodarone HCl (Cordarone) 150 mg IV STAT PRN PRN PRN Reason: Cardiac Arrhythmia Stop: 07/09/18 12:26 Aspirin (Aspirin Chewable) 81 mg PO DAILY [facility] Stop: 07/10/18 08:59 Last Admin: 05/15/18 09:05 Dose: 81 mg Atorvastatin Calcium (Lipitor) 10 mg PO DAILY [facility]; Protocol Stop: 07/10/18 08:59 Last Admin: 05/15/18 09:05 Dose: 10 mg Atropine Sulfate (Atropine Syringe) 0.5 mg IVP PRN PRN PRN Reason: Cardiac Arrhythmia Stop: 07/09/18 12:34 [place] Oil/Thai Balsam/Trypsin (Venelex) 1 appl TP DAILY [facility] Stop: 07/13/18 11:59 Last Admin: 05/15/18 09:05 Dose: 1 appl Donepezil HCl (Aricept) 5 mg PO HS [facility] Stop: 07/09/18 20:59 Last Admin: 05/14/18 20:34 Dose: 5 mg Ferrous Sulfate (Iron) 325 mg PO DAILY [facility] Stop: 07/09/18 11:59 Last Admin: 05/15/18 09:05 Dose: 325 mg Heparin Sodium (Porcine) (Heparin) 5,000 units SUBQ Q12HR [facility] Stop: 07/09/18 20:59 Last Admin: 05/15/18 09:05 Dose: 5,000 units Hydrocortisone Sodium Succinate (Solu-Cortef) 100 mg IVP Q8HR [facility] Stop: 07/09/18 12:59 Last Admin: 05/15/18 13:41 Dose: 100 mg Norepinephrine Bitartrate 8 mg (/ Dextrose) 258 mls @ 0 mls/hr IV TITR PRN; Protocol PRN Reason: To Keep SBP Above 90 Stop: 07/09/18 00:36 Last Titration: 05/10/18 14:15 Dose: 0 mcg/min, 0 mls/hr Sodium Chloride (Nacl 0.9%) 1,000 mls @ 100 mls/hr IV .Q10H [facility] Stop: 07/09/18 12:52 Last Infusion: 05/15/18 06:00 Dose: 100 mls/hr Vancomycin HCl 1.25 gm/ Sodium (Chloride) 250 mls @ 165 mls/hr IV Q24H [facility] Stop: 07/09/18 15:59 Last Admin: 05/15/18 16:08 Dose: 165 mls/hr Piperacillin Sod/Tazobactam (Sod 3.375 gm/ Sodium Chloride) 50 mls @ 100 mls/ hr IV Q8HR [facility] Stop: 07/09/18 12:59 Last Infusion: 05/15/18 14:15 Dose: Infused Ferric Sodium Gluconate Complex 125 mg/ Sodium Chloride 110 mls @ 100 mls/hr IV DAILY [facility] Stop: 07/11/18 13:29 Last Admin: 05/15/18 09:07 Dose: 100 mls/hr Lactulose (Cephulac) 20 gm PO TID [facility] Stop: 07/09/18 13:59 Last Admin: 05/15/18 16:09 Dose: Not Given Lorazepam (Ativan) 0.5 mg IV Q6HR PRN; Protocol PRN Reason: Agitation Stop: 07/09/18 00:33 Last Admin: 05/10/18 01:35 Dose: 0.5 mg Lorazepam (Ativan) 0.5 mg PO Q6HR PRN; Protocol PRN Reason: Agitation Stop: 07/09/18 12:10 Magnesium Chloride (Slow-Mag) 1 ect PO DAILY [facility] Stop: 07/10/18 08:59 Last Admin: 05/15/18 09:05 Dose: 1 ect Metoclopramide HCl (Reglan) 10 mg IVP Q8HR PRN PRN Reason: Abdominal Pain Stop: 07/09/18 12:14 Miscellaneous (Vancomycin Iv Per Pharmacy) 1 ea MC DAILY [facility] Stop: 07/10/18 08:59 Morphine Sulfate (Morphine) 1 mg IVP Q4H PRN PRN Reason: Severe Pain Stop: 07/09/18 13:47 Ondansetron HCl (Zofran) 4 mg IV Q8H PRN PRN Reason: Nausea / Vomiting Stop: 07/09/18 12:48 Pantoprazole Sodium (Protonix) 40 mg PO DAILY [facility] Stop: 07/10/18 11:44 Last Admin: 05/15/18 09:05 Dose: 40 mg General: No acute distress HEENT: Atraumatic Neck: Supple Cardiovascular: Regular rate Lungs: Clear to auscultation Abdomen: Bowel sounds, Soft, no Tender, no Hepatomegaly, no Splenomegaly, no Distended, no Rebound, no Mass - Procedures Procedures: Procedures Procedure Code Date TRANSFUSE NONAUT RED BLOOD CELLS IN PERIPH VEIN, PERC 84465F8 05/09/18 Nutritional Asmnt/Malnutr-PDOC - Dietary Evaluation Malnutrition Findings (Please click <Entered> for more info): Nutritional Asmnt/Malnutrition Start: 05/10/18 14: 28 Text: Status: Complete Freq: Protocol: Document 05/10/18 14:29 LCLAURYG (Rec: 05/10/18 14:39 WU [id number]) Nutritional Asmnt/Malnutrition Patient General Information Nutritional Screening High Risk Diagnosis PNA, hypotension Pertinent Medical Hx/Surgical Hx PNA, COPD, mild alzheimer, PVD , UTI, sepsis Subjective Information Consult received for Tripp score 12. Pt seen resting in bed at time of visit. Per RN, pt is on levophed. pt likes to eat, consumed about 50% of breakfast this morning. Pt took long time to chew food per RN. Current Diet Order/ Nutrition Support cardiac, soft Pertinent Medications Iron, cephulac, piperacillin, nacl 0.9%, vancomycin Pertinent Labs 05/10 Cl 110, glucose 115, Ca 8 .3, alb 2.4 Nutritional Hx/Data Height 1.63 m Height (Calculated Centimeters) 162.6 Current Weight (lbs) 58.967 kg Weight (Calculated Kilograms) 59.0 Weight (Calculated Grams) 90250.0 [place] Body Weight 130 Body Mass Index (BMI) 22.3 Weight Status Approriate GI Symptoms GI Symptoms None Last BM not indicated Difficult in: None Skin Integrity/Comment: scar from old pressure ulcer to sacrum Tripp score 12 Current %PO Fair (50-74%) Estimated Nutritional Goals BEE in Kcals: Using Current wt Calories/Kcals/Kg 27-32 Kcals Calculated 3979-4989 Protein: Using Current wt Protein g/k-1.2 Protein Calculated 59-71 Fluid: ml 1593-1888ml (1ml/kcal) Nutritional Problem 2. Problem Problem increased nutrition needs Etiology increased metabolic demand Signs/Symptoms: dx of PNA 1. Problem Problem altered nutrition relatedl abs Etiology electrolytes imbalance Signs/Symptoms: cl 110, Ca 8.3 Malnutrition Alert Is there a minimum of two criteria No selected? Query Text:Check all the applicable criteria. A minimum of two criteria are recommended for diagnosis of either severe or non-severe malnutrition. Malnutrition Related to Morbid Obesity Malnutrition related to morbid obesity No Intervention/Recommendation Comments 1. Continue with cardiac diet as ordered. Recommend [facility] soft ground diet d/g pt having difficulty of chewing. REENA Trinidad notified. 2. Monitor PO intake, wt, labs and skin integrity 3. F/U as high risk in 2-3 days, 05/12-05/13 Expected Outcomes/Goals Expected Outcomes/Goals 1. PO intake to meet at least 75% of nutritional needs. 2. Wt stability, skin to remain intact, labs to approach WNL.
[2018-05-16 04:43] LABS: HEMATOCRIT 26.8 % (41.0-60); HEMOGLOBIN 8.8 gm/dL (12-16); MEAN CELL VOLUME 83.5 fl (80-99); MEAN CORPUSCULAR HEMOGLOBIN 27.6 pg (27.0-31.0); MEAN PLATELET VOLUME 7.4 fl; RED BLOOD COUNT 3.21 Mil/cmm (3.80-5.80); RED CELL DISTRIBUTION WIDTH 16.7 % (11.5-20.0); WHITE BLOOD COUNT 7.7 Th/cmm (4.8-10.8)
[2018-05-16 04:46] LABS: PLATELET COUNT 291 Th/cmm (150-400)
[2018-05-16 04:55] LABS: INR 1.15 (0.5-1.4); PROTHROMBIN TIME (TEST) 12.1 SECONDS (9.5-11.5)
[2018-05-16 04:57] LABS: ANION GAP 9.4 (7.0-16.0); BUN - UREA NITROGEN 19 mg/dL (7-25); CALCIUM SERUM 7.6 mg/dL (8.6-10.3); CARBON DIOXIDE 19.5 mEq/L (21.0-31.0); CHLORIDE 113 mEq/L (98-107); CREATININE - SERUM 0.9 mg/dL (0.7-1.3); GLUCOSE 122 mg/dL (70-105); SODIUM SERUM 139 mEq/L (136-145)
[2018-05-16 04:58] LABS: POTASSIUM SERUM 2.9 mEq/L (3.5-5.1)
[2018-05-16] MEDS: Hydrocortisone Sodium Succ 100 mg Vial IVP SCH ×3 (05:43→20:40)
[2018-05-16 05:46] LABS: BAND NEUTROPHILE 1 % (0-10); NEUTROPHILS 90 % (40-80)
[2018-05-16 05:47] LABS: BASOPHIL 0 % (0-3); EOSINOPHIL 0 % (0-5); LYMPHOCYTE 5 % (20-50); MONOCYTE 4 % (2-10)
[2018-05-16] MEDS ORDERED: Atropine Sulfate 1 mg/mL 1 mL Vial IVP ONE ×2 (06:23→12:00)
[2018-05-16] MEDS ORDERED: Atropine Sulfate 1 mg/mL 1 mL Vial ONE (06:25)
[2018-05-16] MEDS: Sodium Chloride 0.9% 1,000 ML IV SCH ×3 (06:44→19:33)
[2018-05-16] MEDS ORDERED: KCL 20mEq/100mL Premix 40 MEQ/200 ML PIGGYBACK IV ONE (07:52)
[2018-05-16] MEDS: KCL 20mEq/100mL Premix 20 MEQ/100 ML PIGGYBACK IV SCH ×2 (08:30→10:38)
[2018-05-16] MEDS: Atorvastatin Calcium 10 MG TAB PO SCH (08:54)
[2018-05-16] MEDS: Ferrous Sulfate 325 MG TAB PO SCH (08:54)
[2018-05-16] MEDS: Aspirin 81mg Chewable Tab PO SCH (08:54)
[2018-05-16] MEDS: Lactulose 10 Gm/15 mL 30mL UDC PO SCH ×3 (08:56→20:41)
[2018-05-16] MEDS: Magnesium Chloride EC 64mg Tab PO SCH (08:56)
[2018-05-16] MEDS: Pantoprazole 40 mg EC Tab PO SCH (08:56)
[2018-05-16] MEDS ORDERED: Potassium Chloride 20 mEq ER Tab PO ONE (09:40)
--- NOTE | 2018-05-16 09:59 | Consultation ---
DATE OF CONSULTATION: 05/16/[address] Arriaga. HISTORY AND PHYSICAL: This is an 88-year-old male patient who was admitted to [facility] with GI bleed where the patient was given 2 units of blood due to insurance reason. The patient was transferred to [facility]. During in hospital, the patient has bilateral inguinal hernia, will need surgery. The patient did have a GI workup with possible Osorio esophagus. Cardiac consult is requested in view of atrial fibrillation with slow ventricular response. PAST MEDICAL HISTORY: Gastrointestinal bleed with anemia, Osorio's esophagus, atrial fibrillation with PVC, dementia, hypertension, COPD, hyperlipidemia, chronic constipation. FAMILY HISTORY: Unremarkable. SOCIAL HISTORY: No history of smoking, alcohol abuse. ALLERGIES: No known allergies. PHYSICAL EXAMINATION: VITAL SIGNS: Blood pressure 120/80, pulse 60 irregular, respirations 28. HEAD: Normocephalic. No lumps or bumps. EYES: Pupils equal, reactive to light. Fundi show AV nicking, sclerae white, conjunctivae pink. NECK: Carotid 2+. Normal upstroke. JVD flat. Thyroid not palpable. Lymph nodes not palpable. CHEST: Shows increased AP diameter. No kyphosis, scoliosis. LUNGS: Bilateral bronchovesicular breath sounds. HEART: PMI fifth intercostal space with lateral to midclavicular line. S1, S2. No S3, S4, soft systolic murmur. ABDOMEN: Soft. Liver and spleen not palpable. No organomegaly. Bowel sounds active. The patient has bilateral inguinal hernia. NEUROLOGIC: Unremarkable. EXTREMITIES: Peripheral pulses 1+. No pedal edema. CLINICAL IMPRESSION: Bilateral inguinal hernia, atrial fibrillation with slow ventricular response, gastrointestinal bleed with anemia, Osorio esophagus, atrial fibrillation, PVCs, dementia, hypertension, chronic obstructive pulmonary disease, hyperlipidemia, chronic constipation. PLAN: Admit the patient. We will give atropine and keep necessary get echocardiogram. The patient is cleared for surgery. The patient should not be on anticoagulation for atrial fibrillation due to GI rebleed recent. [facility]# [id number]
--- NOTE | 2018-05-16 10:13 | Diagnostic Imaging Report ---
CHEST X-RAY: AP view INDICATION: Cough, preop COMPARISON: 05/10/2018 FINDINGS: The prior right IJ line has been removed. There is interval development of CHF with bilateral pleural effusions. Cardiomegaly is noted with atherosclerosis. IMPRESSION: Interval development of CHF with bilateral pleural effusions. Pneumonia of the lung bases cannot be excluded. Cardiomegaly and atherosclerotic vascular disease.
[2018-05-16] MEDS ORDERED: Bupivacaine 0.5% 10 mL Vial ONE (11:56)
[2018-05-16] MEDS ORDERED: fentaNYL Citrate 100 mcg/2mL Vial ONE (13:28)
[2018-05-16] MEDS ORDERED: Propofol **SURGERY USE ONLY** 20 ML IV ONE (13:40)
[2018-05-16] MEDS ORDERED: Neostigmine 10mg/10mL Vial ONE (13:40)
[2018-05-16 16:28] LABS: pH 7.52 (7.35-7.45)
[2018-05-16 16:29] LABS: ALLEN TEST Positive
--- NOTE | 2018-05-16 16:45 | Operative Report ---
DATE OF SURGERY: 05/16/2018 PREOPERATIVE DIAGNOSES: 1. Incarcerated left inguinal hernia. 2. Incarcerated right inguinal hernia. 3. Gastrointestinal bleeding, etiology ?. 4. Alzheimer disease. 5. Chronic obstructive pulmonary disease. POSTOPERATIVE DIAGNOSES: 1. Incarcerated left inguinal hernia with sigmoid colon and small bowel. 2. Incarcerated right inguinal hernia with cecum and distal ileum. 3. Mass in the right scrotum, etiology ?. OPERATION DONE: 1. Reduction of incarcerated left inguinal hernia. 2. Reduction of right inguinal hernia, cecum and small bowel. 3. Resection of right testicle. 4. Resection of cecum and distal ileum with onct-sq-gmbq anastomosis. 5. Primary repair of right inguinal hernia. 6. Primary repair of left inguinal hernia. SURGEON: Jessica. ANESTHESIA: General anesthesia. ANESTHESIOLOGIST: Odalys Fraire M.D. ESTIMATED BLOOD LOSS: 50 mL. INDICATIONS FOR SURGERY: The patient with GI bleeding and was seen by GI specialist. Because of the huge scrotum, a CT scan of the abdomen was done and this showed incarceration of large and small bowel into both inguinal hernias extending into the scrotum. Informed consent discussed with the son prior to surgery day before and consent was given. DESCRIPTION OF PROCEDURE: The patient was given general anesthesia. The abdomen and scrotum were prepped for the Betadine and draped in appropriate manner. An incision was made in the right groin and this was carried all the way down to expose the peritoneum. The incarcerated cecum was identified and this was adhered densely to the right scrotum. A separate incision was made in the anterior scrotum on the right side and the adhesion of the sigmoid colon, which itself had a large mass was from the testicle. Testicle was markedly inflamed and swollen, which required its removal as well. Following reduction of the cecum from the scrotum it was evident that the large mass would result in obstruction and transection of the distal ileum and the cecum was done utilizing GI instrument. The [id number] anastomosis was then performed following transection of the mesentery. Impact instrument was used for this purpose. A [id number]-[id number] anastomosis was done with a ELI instrument and the open end was closed with a ELI instrument. The staple line was reinforced with running suture of 3-0 silk including closure of the mesentery. Cultures were taken of the cecum. The left inguinal hernia was exposed in the same fashion. A large portion of the sigmoid colon and small bowel were incarcerated into the left scrotum. Lysis of adhesion was done and finally the sigmoid and ileum were replaced into the abdominal cavity. The repair of the hernia was done with interrupted sutures of 0 Nurolon approximating the transversalis fascia to the inguinal ligament. This was done on both sides. The left inguinal incision was closed with running suture of 3-0 Vicryl subcutaneously and the skin with subcuticular suture of 4-0 Vicryl. On the right side, the scrotum was closed with a 3-0 Vicryl and the skin with same material. A Jude-Serrano drain was left in the scrotal sac and out into the right inguinal incision. The right inguinal incision was closed with running suture of 3-0 Vicryl subcutaneously and the skin was closed with subcuticular suture of 4-0 Vicryl. Sterile dressing was placed over this. The patient will be left on a respirator overnight at least and attempt was made to reach the son regarding the findings of surgery. JOB# [id number]
--- NOTE | 2018-05-16 16:48 | GI Progress Note ---
Subjective - Review of Systems Service Date: 05/16/18 Events since last encounter: Had Hernia surgery Subjective: Intubated Objective - Results Result Diagrams: 05/16/18 04:30 05/16/18 12:15 Recent Labs: Laboratory Last Values WBC 7.7 Th/cmm (4.8-10.8) 05/16/18 04:30 RBC 3.21 Mil/cmm (3.80-5.80) L 05/16/18 04:30 Hgb 8.8 gm/dL (12-16) L 05/16/18 04:30 Hct 26.8 % (41.0-60) L 05/16/18 04:30 MCV 83.5 fl (80-99) 05/16/18 04:30 MCH 27.6 pg (27.0-31.0) 05/16/18 04:30 MCHC Differential 33.0 pg (28.0-36.0) 05/16/18 04:30 RDW 16.7 % (11.5-20.0) 05/16/18 04:30 Plt Count 291 Th/cmm (150-400) D 05/16/18 04:30 MPV 7.4 fl 05/16/18 04:30 Add Manual Diff YES 05/16/18 04:30 Band Neutrophils % 1 % (0-10) 05/16/18 04:30 Neutrophils (Manual) 90 % (40-80) H 05/16/18 04:30 Lymphocytes 5 % (20-50) L 05/16/18 04:30 Monocytes 4 % (2-10) 05/16/18 04:30 Eosinophils 0 % (0-5) 05/16/18 04:30 Basophils 0 % (0-3) 05/16/18 04:30 Platelet Estimate ADEQUATE (NORMAL) 05/15/18 04:30 Total Retics Counted 1.1 % (0.5-1.5) 05/14/18 04:20 Absolute Retic 35.8 Th/cmm 05/14/18 04:20 Corrected Retic Count 0.7 % (0.5-1.5) 05/14/18 04:20 Plt Count 286 Th/cmm (150-750) 05/11/18 06:10 PT 12.1 SECONDS (9.5-11.5) H 05/16/18 04:30 INR 1.15 (0.5-1.4) 05/16/18 04:30 PTT (Actin FS) 29.9 SECONDS (26.0-38.0) 05/16/18 04:30 Fibrinogen 348.0 mg/dL (200.0-400.0) 05/11/18 06:10 D-Dimer 979 ng/mL (100-400) H 05/11/18 06:10 Specimen Source Arterial 05/16/18 16:15 Sample Site Left Radial 05/16/18 16:15 pH 7.52 (7.35-7.45) H 05/16/18 16:15 pCO2 26.0 mmHg (35.0-45.0) L 05/16/18 16:15 pO2 111.0 mmHg (80.0-100.0) H 05/16/18 16:15 HCO3 24.6 mEq/L (20.0-26.0) 05/16/18 16:15 Base Excess -0.5 mEq/L (-3.0-3.0) 05/16/18 16:15 O2 Saturation 99.0 % (92.0-100.0) 05/16/18 16:15 Titi Test Positive 05/16/18 16:15 Vent Rate 12 05/16/18 16:15 Inspired O2 50 05/16/18 16:15 Tidal Volume 600 05/16/18 16:15 PEEP 0 05/16/18 16:15 Pressure (ins/psv/peep) 10 05/16/18 16:15 Critical Value HSTEHNO 05/16/18 16:15 Sodium 139 mEq/L (136-145) 05/16/18 04:30 Potassium 3.4 mEq/L (3.5-5.1) L 05/16/18 12:15 Chloride 113 mEq/L (98-107) H 05/16/18 04:30 Carbon Dioxide 19.5 mEq/L (21.0-31.0) L 05/16/18 04:30 Anion Gap 9.4 (7.0-16.0) 05/16/18 04:30 BUN 19 mg/dL (7-25) 05/16/18 04:30 Creatinine 0.9 mg/dL (0.7-1.3) 05/16/18 04:30 Est GFR ( Amer) TNP 05/16/18 04:30 Est GFR (Non-Af Amer) TNP 05/16/18 04:30 BUN/Creatinine Ratio 21.1 05/16/18 04:30 Glucose 122 mg/dL (70-105) H 05/16/18 04:30 POC Glucose 97 MG/DL (70 - 105) 05/16/18 12:19 Calcium 7.6 mg/dL (8.6-10.3) L 05/16/18 04:30 Phosphorus 3.9 mg/dL (2.5-5.0) 05/11/18 04:45 Magnesium 2.0 mg/dL (1.9-2.7) 05/11/18 04:45 Iron 17 ug/dL (38-169) L 05/11/18 04:45 TIBC 234 ug/dL (250-450) L 05/11/18 04:45 Iron Saturation 7 % (15-55) L 05/11/18 04:45 Unsaturated IBC 217 ug/dL (111-343) 05/11/18 04:45 Ferritin 76 ng/mL (30-400) 05/11/18 04:45 Total Bilirubin 0.2 mg/dL (0.3-1.0) L 05/12/18 04:40 Direct Bilirubin 0.13 mg/dL (0.0-0.2) 05/11/18 04:45 AST 13 U/L (13-39) 05/12/18 04:40 ALT 10 U/L (7-52) 05/12/18 04:40 Alkaline Phosphatase 80 U/L (34-104) 05/12/18 04:40 Troponin I 0.03 ng/mL (0.01-0.05) 05/10/18 04:35 Total Protein 4.9 gm/dL (6.0-8.3) L 05/12/18 04:40 Albumin 2.3 gm/dL (4.2-5.5) L 05/12/18 04:40 Globulin 2.6 gm/dL 05/12/18 04:40 Albumin/Globulin Ratio 0.9 (1.0-1.8) L 05/12/18 04:40 Vitamin B12 982 pg/mL (232-1245) 07/27/18 04:45 Folic Acid 12.7 ng/mL (>3.0) 05/11/18 04:45 Stool Occult Blood POSITIVE (NEGATIVE) H 05/11/18 19:00 Vancomycin Trough 14.1 ug/mL (5-10) H 05/12/18 15:10 Blood Type A POSITIVE 05/10/18 08:10 Antibody Screen NEGATIVE 05/10/18 08:10 Crossmatch See Detail 05/10/18 08:10 - Physical Exam Vitals and I&O: Vital Signs Temp 97.4 F 05/16/18 12:41 Pulse 85 05/16/18 15:37 Resp 16 05/16/18 16:04 BP 122/66 05/16/18 12:41 Pulse Ox 97 05/16/18 16:34 Intake & Output 05/15/18 05/16/18 05/16/18 18:59 06:59 18:59 Intake Total 1651.667 100 250 Balance 1651.667 100 250 Weight (lbs) 57.606 kg Intake: Intake, IV Amount 901.667 100 250 KCL 20mEq/100mL Premix 20 200 meq In 100 ml @ 50 mls/ hr IV Q2H [facility] Rx#: [id number] Piperacillin Sodium/ 50 100 50 Tazobact 3.375 gm In Sodium Chloride 0.9% 50 ml @ 100 mls/hr IV Q8HR [facility] Rx#:[id number] Sodium Chloride 0.9% 1, 851.667 000 ml @ 100 mls/hr IV . Q10H [facility] Rx#:[id number] Oral 750 Other: # Voids 3 # Bowel Movements 2 Stool Characteristics Soft Brown Weight Source Bedscale Active Medications: Current Medications Acetaminophen (Tylenol) 650 mg PO Q4H PRN PRN Reason: Pain Or Fever above 101 Stop: 07/09/18 12:24 Acetaminophen/Hydrocodone Bitart ([place] 5mg/325mg) 1 tab PO Q4H PRN PRN Reason: Pain (Moderate) Stop: 07/09/18 12:22 Amiodarone HCl (Cordarone) 150 mg IV STAT PRN PRN PRN Reason: Cardiac Arrhythmia Stop: 07/09/18 12:26 Aspirin (Aspirin Chewable) 81 mg PO DAILY [facility] Stop: 07/10/18 08:59 Last Admin: 05/16/18 08:54 Dose: Not Given Atorvastatin Calcium (Lipitor) 10 mg PO DAILY [facility]; Protocol Stop: 07/10/18 08:59 Last Admin: 05/16/18 08:54 Dose: Not Given Atropine Sulfate (Atropine Syringe) 0.5 mg IVP PRN PRN PRN Reason: Cardiac Arrhythmia Stop: 07/09/18 12:34 [place] Oil/[place] Balsam/Trypsin (Venelex) 1 appl TP DAILY [facility] Stop: 07/13/18 11:59 Last Admin: 05/15/18 09:05 Dose: 1 appl Donepezil HCl (Aricept) 5 mg PO HS [facility] Stop: 07/09/18 20:59 Last Admin: 05/15/18 21:34 Dose: 5 mg Ferrous Sulfate (Iron) 325 mg PO DAILY [facility] Stop: 07/09/18 11:59 Last Admin: 05/16/18 08:54 Dose: Not Given Heparin Sodium (Porcine) (Heparin) 5,000 units SUBQ Q12HR [facility] Stop: 07/09/18 20:59 Last Admin: 05/16/18 08:55 Dose: Not Given Hydrocortisone Sodium Succinate (Solu-Cortef) 100 mg IVP Q8HR [facility] Stop: 07/09/18 12:59 Last Admin: 05/16/18 15:54 Dose: 100 mg Norepinephrine Bitartrate 8 mg (/ Dextrose) 258 mls @ 0 mls/hr IV TITR PRN; Protocol PRN Reason: To Keep SBP Above 90 Stop: 07/09/18 00:36 Last Titration: 05/10/18 14:15 Dose: 0 mcg/min, 0 mls/hr Sodium Chloride (Nacl 0.9%) 1,000 mls @ 100 mls/hr IV .Q10H [facility] Stop: 07/09/18 12:52 Last Admin: 05/16/18 06:44 Dose: 100 mls/hr Piperacillin Sod/Tazobactam (Sod 3.375 gm/ Sodium Chloride) 50 mls @ 100 mls/ hr IV Q8HR [facility] Stop: 07/09/18 12:59 Last Infusion: 05/16/18 16:23 Dose: Infused Linezolid (Zyvox) 600 mg in 300 mls @ 300 mls/hr IV Q12H [facility] Stop: 07/15/18 14:59 Lactulose (Cephulac) 20 gm PO TID [facility] Stop: 07/09/18 13:59 Last Admin: 05/16/18 15:46 Dose: Not Given Lorazepam (Ativan) 0.5 mg IV Q6HR PRN; Protocol PRN Reason: Agitation Stop: 07/09/18 00:33 Last Admin: 05/10/18 01:35 Dose: 0.5 mg Lorazepam (Ativan) 0.5 mg PO Q6HR PRN; Protocol PRN Reason: Agitation Stop: 07/09/18 12:10 Magnesium Chloride (Slow-Mag) 1 ect PO DAILY [facility] Stop: 07/10/18 08:59 Last Admin: 05/16/18 08:56 Dose: Not Given Metoclopramide HCl (Reglan) 10 mg IVP Q8HR PRN PRN Reason: Abdominal Pain Stop: 07/09/18 12:14 Morphine Sulfate (Morphine) 1 mg IVP Q4H PRN PRN Reason: Severe Pain Stop: 07/09/18 13:47 Ondansetron HCl (Zofran) 4 mg IV Q8H PRN PRN Reason: Nausea / Vomiting Stop: 07/09/18 12:48 Pantoprazole Sodium (Protonix) 40 mg PO DAILY [facility] Stop: 07/10/18 11:44 Last Admin: 05/16/18 08:56 Dose: Not Given General: Other (sedated/intubated) Cardiovascular: Regular rate Lungs: Clear to auscultation Abdomen: Bowel sounds, Soft, no Tender, no Hepatomegaly, no Splenomegaly, no Distended, no Rebound, no Mass - Procedures Procedures: Procedures Procedure Code Date EXCISION OF LOWER ESOPHAGUS, ENDO, DIAGN [id number] 05/09/18 TRANSFUSE NONAUT RED BLOOD CELLS IN PERIPH VEIN, PERC 29968J8 05/09/18 Assessment/Plan - Plan Plan: 1. ANEMIA, MULTIFACTORIAL. 2. FOBT POSITIVE. 3. DEMENTIA. 4. H/O A FIB, HTN. 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 Ely was not possible as pt did not drink his prep. Plan: 1. Ely can be done electively as outpt. Pt may be able to have easier bowel preps outside of the hospital 2. MONITOR HGB; TRANSFUSE PRN. 3. DIET ANAID. 4. follow up gastric biopsies
[2018-05-16] MEDS: Linezolid 600mg/300mL 600 MG/300 ML BAG IV SCH (16:53)
[2018-05-16] MEDS ORDERED: Norepinephrine 4 mg/4mL Vial IV ONE (17:51)
[2018-05-16] MEDS ORDERED: Albuterol/Ipratropium Neb 3 ML AERS HHN PRN (20:28)
[2018-05-16] MEDS: Chlorhexidine Gluconate 0.12% 15mL Mouthwash MM SCH (20:40)
--- NOTE | 2018-05-16 22:48 | Internal Medicine Prog Note ---
Internal Medicine Subjective - Subjective Service Date: 05/16/18 Patient seen and examined:: with staff Patient is:: asleep, eyes closed, in bed Per staff patient has:: no adverse event, other (s/p bl Inguinal hernia repair, intubated.) Internal Medicine Objective - Results Result Diagrams: 05/16/18 04:30 05/16/18 12:15 Recent Labs: Laboratory Last Values WBC 7.7 Th/cmm (4.8-10.8) 05/16/18 04:30 RBC 3.21 Mil/cmm (3.80-5.80) L 05/16/18 04:30 Hgb 8.8 gm/dL (12-16) L 05/16/18 04:30 Hct 26.8 % (41.0-60) L 05/16/18 04:30 MCV 83.5 fl (80-99) 05/16/18 04:30 MCH 27.6 pg (27.0-31.0) 05/16/18 04:30 MCHC Differential 33.0 pg (28.0-36.0) 05/16/18 04:30 RDW 16.7 % (11.5-20.0) 05/16/18 04:30 Plt Count 291 Th/cmm (150-400) D 05/16/18 04:30 MPV 7.4 fl 05/16/18 04:30 Add Manual Diff YES 05/16/18 04:30 Band Neutrophils % 1 % (0-10) 05/16/18 04:30 Neutrophils (Manual) 90 % (40-80) H 05/16/18 04:30 Lymphocytes 5 % (20-50) L 05/16/18 04:30 Monocytes 4 % (2-10) 05/16/18 04:30 Eosinophils 0 % (0-5) 05/16/18 04:30 Basophils 0 % (0-3) 05/16/18 04:30 Platelet Estimate ADEQUATE (NORMAL) 05/15/18 04:30 Total Retics Counted 1.1 % (0.5-1.5) 05/14/18 04:20 Absolute Retic 35.8 Th/cmm 05/14/18 04:20 Corrected Retic Count 0.7 % (0.5-1.5) 05/14/18 04:20 Plt Count 286 Th/cmm (150-750) 05/11/18 06:10 PT 12.1 SECONDS (9.5-11.5) H 05/16/18 04:30 INR 1.15 (0.5-1.4) 05/16/18 04:30 PTT (Actin FS) 29.9 SECONDS (26.0-38.0) 05/16/18 04:30 Fibrinogen 348.0 mg/dL (200.0-400.0) 05/11/18 06:10 D-Dimer 979 ng/mL (100-400) H 05/11/18 06:10 Specimen Source Arterial 05/16/18 16:15 Sample Site Left Radial 05/16/18 16:15 pH 7.52 (7.35-7.45) H 05/16/18 16:15 pCO2 26.0 mmHg (35.0-45.0) L 05/16/18 16:15 pO2 111.0 mmHg (80.0-100.0) H 05/16/18 16:15 HCO3 24.6 mEq/L (20.0-26.0) 05/16/18 16:15 Base Excess -0.5 mEq/L (-3.0-3.0) 05/16/18 16:15 O2 Saturation 99.0 % (92.0-100.0) 05/16/18 16:15 Titi Test Positive 05/16/18 16:15 Vent Rate 12 05/16/18 16:15 Inspired O2 50 05/16/18 16:15 Tidal Volume 600 05/16/18 16:15 PEEP 0 05/16/18 16:15 Pressure (ins/psv/peep) 10 05/16/18 16:15 Critical Value HSTEHNO 05/16/18 16:15 Sodium 139 mEq/L (136-145) 05/16/18 04:30 Potassium 3.4 mEq/L (3.5-5.1) L 05/16/18 12:15 Chloride 113 mEq/L (98-107) H 05/16/18 04:30 Carbon Dioxide 19.5 mEq/L (21.0-31.0) L 05/16/18 04:30 Anion Gap 9.4 (7.0-16.0) 05/16/18 04:30 BUN 19 mg/dL (7-25) 05/16/18 04:30 Creatinine 0.9 mg/dL (0.7-1.3) 05/16/18 04:30 Est GFR ( Amer) TNP 05/16/18 04:30 Est GFR (Non-Af Amer) TNP 05/16/18 04:30 BUN/Creatinine Ratio 21.1 05/16/18 04:30 Glucose 122 mg/dL (70-105) H 05/16/18 04:30 POC Glucose 97 MG/DL (70 - 105) 05/16/18 12:19 Calcium 7.6 mg/dL (8.6-10.3) L 05/16/18 04:30 Phosphorus 3.9 mg/dL (2.5-5.0) 05/11/18 04:45 Magnesium 2.0 mg/dL (1.9-2.7) 05/11/18 04:45 Iron 17 ug/dL (38-169) L 05/11/18 04:45 TIBC 234 ug/dL (250-450) L 05/11/18 04:45 Iron Saturation 7 % (15-55) L 05/11/18 04:45 Unsaturated IBC 217 ug/dL (111-343) 05/11/18 04:45 Ferritin 76 ng/mL (30-400) 05/11/18 04:45 Total Bilirubin 0.2 mg/dL (0.3-1.0) L 05/12/18 04:40 Direct Bilirubin 0.13 mg/dL (0.0-0.2) 05/11/18 04:45 AST 13 U/L (13-39) 05/12/18 04:40 ALT 10 U/L (7-52) 05/12/18 04:40 Alkaline Phosphatase 80 U/L (34-104) 05/12/18 04:40 Troponin I 0.03 ng/mL (0.01-0.05) 05/10/18 04:35 Total Protein 4.9 gm/dL (6.0-8.3) L 05/12/18 04:40 Albumin 2.3 gm/dL (4.2-5.5) L 05/12/18 04:40 Globulin 2.6 gm/dL 05/12/18 04:40 Albumin/Globulin Ratio 0.9 (1.0-1.8) L 05/12/18 04:40 Vitamin B12 982 pg/mL (232-1245) 05/11/18 04:45 Folic Acid 12.7 ng/mL (>3.0) 05/11/18 04:45 Stool Occult Blood POSITIVE (NEGATIVE) H 05/11/18 19:00 Vancomycin Trough 14.1 ug/mL (5-10) H 05/12/18 15:10 Blood Type A POSITIVE 05/10/18 08:10 Antibody Screen NEGATIVE 05/10/18 08:10 Crossmatch See Detail 05/10/18 08:10 - Physical Exam Vitals and I&O: Vital Signs Temp 98.5 F 05/16/18 21:00 Pulse 104 05/16/18 22:00 Resp 18 05/16/18 22:00 BP 103/63 05/16/18 22:00 Pulse Ox 100 05/16/18 22:00 Intake & Output 05/16/18 05/16/18 05/17/18 06:59 18:59 06:59 Intake Total 100 1460 297.713 Output Total 575 Balance 100 885 297.713 Weight (lbs) 78.471 kg Intake: Intake, IV Amount 100 1460 297.713 KCL 20mEq/100mL Premix 20 200 meq In 100 ml @ 50 mls/ hr IV Q2H [facility] Rx#: [id number] Linezolid 600mg/300mL 600 210 mg In 300 ml @ 300 mls/ hr IV Q12H [facility] Rx#: [id number] Norepinephrine 4 mg In 119.38 Dextrose 5% 250 ml @ Per Protocol IV TITR PRN Rx#: [id number] Piperacillin Sodium/ 100 50 Tazobact 3.375 gm In Sodium Chloride 0.9% 50 ml @ 100 mls/hr IV Q8HR [facility] Rx#:[id number] Sodium Chloride 0.9% 1, 1000 178.333 000 ml @ 100 mls/hr IV . Q10H [facility] Rx#:[id number] Output: Drainage 25 RT QUADRANT LUIS 25 Urine 550 Other: Weight Source Bedscale Active Medications: Current Medications Acetaminophen (Tylenol) 650 mg PO Q4H PRN PRN Reason: Pain Or Fever above 101 Stop: 07/09/18 12:24 Acetaminophen/Hydrocodone Bitart ([place] 5mg/325mg) 1 tab PO Q4H PRN PRN Reason: Pain (Moderate) Stop: 07/09/18 12:22 Albuterol/Ipratropium (Duoneb Neb) 3 ml HHN Q4H PRN PRN Reason: Wheezing Stop: 07/15/18 20:27 Amiodarone HCl (Cordarone) 150 mg IV STAT PRN PRN PRN Reason: Cardiac Arrhythmia Stop: 07/09/18 12:26 Aspirin (Aspirin Chewable) 81 mg PO DAILY [facility] Stop: 07/10/18 08:59 Last Admin: 05/16/18 08:54 Dose: Not Given Atorvastatin Calcium (Lipitor) 10 mg PO DAILY [facility]; Protocol Stop: 07/10/18 08:59 Last Admin: 05/16/18 08:54 Dose: Not Given Atropine Sulfate (Atropine Syringe) 0.5 mg IVP PRN PRN PRN Reason: Cardiac Arrhythmia Stop: 07/09/18 12:34 Budesonide (Pulmicort) 0.5 mg HHN BIDRT [facility] Stop: 07/16/18 06:59 [place] Oil/[place] Balsam/Trypsin (Venelex) 1 appl TP DAILY [facility] Stop: 07/13/18 11:59 Last Admin: 05/15/18 09:05 Dose: 1 appl Chlorhexidine Gluconate (Peridex) 15 ml MM 799,[phone] [facility] Stop: 07/15/18 19:59 Last Admin: 05/16/18 20:40 Dose: 15 ml Donepezil HCl (Aricept) 5 mg PO HS [facility] Stop: 07/09/18 20:59 Last Admin: 05/16/18 20:41 Dose: Not Given Ferrous Sulfate (Iron) 325 mg PO DAILY [facility] Stop: 07/09/18 11:59 Last Admin: 05/16/18 08:54 Dose: Not Given Heparin Sodium (Porcine) (Heparin) 5,000 units SUBQ Q12HR [facility] Stop: 07/09/18 20:59 Last Admin: 05/16/18 20:41 Dose: Not Given Hydrocortisone Sodium Succinate (Solu-Cortef) 100 mg IVP Q8HR [facility] Stop: 07/09/18 12:59 Last Admin: 05/16/18 20:40 Dose: 100 mg Sodium Chloride (Nacl 0.9%) 1,000 mls @ 100 mls/hr IV .Q10H [facility] Stop: 07/09/18 12:52 Last Admin: 05/16/18 19:33 Dose: 100 mls/hr Piperacillin Sod/Tazobactam (Sod 3.375 gm/ Sodium Chloride) 50 mls @ 100 mls/ hr IV Q8HR [facility] Stop: 07/09/18 12:59 Last Admin: 05/16/18 20:40 Dose: 100 mls/hr Linezolid (Zyvox) 600 mg in 300 mls @ 300 mls/hr IV Q12H [facility] Stop: 07/15/18 14:59 Last Infusion: 05/16/18 17:35 Dose: 0 mls/hr Norepinephrine Bitartrate 4 mg (/ Dextrose) 254 mls @ 0 mls/hr IV TITR PRN; Protocol PRN Reason: To Keep SBP Above 90 Stop: 07/09/18 00:36 Last Titration: 05/16/18 21:55 Dose: 10 mcg/min, 38.1 mls/hr Lactulose (Cephulac) 20 gm PO TID [facility] Stop: 07/09/18 13:59 Last Admin: 05/16/18 20:41 Dose: Not Given Lorazepam (Ativan) 0.5 mg IV Q6HR PRN; Protocol PRN Reason: Agitation Stop: 07/09/18 00:33 Last Admin: 05/16/18 17:07 Dose: 0.5 mg Lorazepam (Ativan) 0.5 mg PO Q6HR PRN; Protocol PRN Reason: Agitation Stop: 07/09/18 12:10 Magnesium Chloride (Slow-Mag) 1 ect PO DAILY [facility] Stop: 07/10/18 08:59 Last Admin: 05/16/18 08:56 Dose: Not Given Metoclopramide HCl (Reglan) 10 mg IVP Q8HR PRN PRN Reason: Abdominal Pain Stop: 07/09/18 12:14 Morphine Sulfate (Morphine) 1 mg IVP Q4H PRN PRN Reason: Severe Pain Stop: 07/09/18 13:47 Ondansetron HCl (Zofran) 4 mg IV Q8H PRN PRN Reason: Nausea / Vomiting Stop: 07/09/18 12:48 Pantoprazole Sodium (Protonix) 40 mg PO DAILY [facility] Stop: 07/10/18 11:44 Last Admin: 05/16/18 08:56 Dose: Not Given General: obtunded HEENT: NC/AT Neck: Supple, No JVD, No thyromegaly, No LAD Lungs: wheezing, ronchi, other (few wheezing bl.) Cardiovascular: other (iregular.) Abdomen: soft, non-tender, non-distended, positive bowel sound Extremities: clear - Procedures Procedures: Procedures Procedure Code Date EXCISION OF LOWER ESOPHAGUS, ENDO, DIAGN [id number] 05/09/18 TRANSFUSE NONAUT RED BLOOD CELLS IN PERIPH VEIN, PERC 72618B0 05/09/18 Internal Medicine Assmt/Plan - Assessment Assessment: VDRF: close monitoring in the ICU. Hypotension: multifactorial. continue Levaphed drip and close monitoring in ICU. s/p bl. inguinal hernia repair. ALOC: on and off, observe closely in ICU. S/P EGD today: gastritis; esophagitis. sepsis: improving. Rt Scrotal abscess with drainage: G/s, C&S ordered; Surgical consult appreciated. PNA: IVPB ABX. Anemia: OB +x3; s/p PRBC. CAD: s/p NE h/o A. Fib: rate controlled. PVD Nutritional Asmnt/Malnutr-PDOC - Dietary Evaluation Malnutrition Findings (Please click <Entered> for more info): Nutritional Asmnt/Malnutrition Start: 05/10/18 14: 28 Text: Status: Complete Freq: Protocol: Document 05/10/18 14:29 LCHENG (Rec: 05/10/18 14:39 [email or web address] [id number]) Nutritional Asmnt/Malnutrition Patient General Information Nutritional Screening High Risk Diagnosis PNA, hypotension Pertinent Medical Hx/Surgical Hx PNA, COPD, mild alzheimer, PVD , UTI, sepsis Subjective Information Consult received for Tripp score 12. Pt seen resting in bed at time of visit. Per RN, pt is on levophed. pt likes to eat, consumed about 50% of breakfast this morning. Pt took long time to chew food per RN. Current Diet Order/ Nutrition Support cardiac, soft Pertinent Medications Iron, cephulac, piperacillin, nacl 0.9%, vancomycin Pertinent Labs 05/10 Cl 110, glucose 115, Ca 8 .3, alb 2.4 Nutritional Hx/Data Height 1.63 m Height (Calculated Centimeters) 162.6 Current Weight (lbs) 58.967 kg Weight (Calculated Kilograms) 59.0 Weight (Calculated Grams) 63430.0 [place] Body Weight 130 Body Mass Index (BMI) 22.3 Weight Status Approriate GI Symptoms GI Symptoms None Last BM not indicated Difficult in: None Skin Integrity/Comment: scar from old pressure ulcer to sacrum Tripp score 12 Current %PO Fair (50-74%) Estimated Nutritional Goals BEE in Kcals: Using Current wt Calories/Kcals/Kg 27-32 Kcals Calculated 2404-2446 Protein: Using Current wt Protein g/k-1.2 Protein Calculated 59-71 Fluid: ml 1593-1888ml (1ml/kcal) Nutritional Problem 2. Problem Problem increased nutrition needs Etiology increased metabolic demand Signs/Symptoms: dx of PNA 1. Problem Problem altered nutrition relatedl abs Etiology electrolytes imbalance Signs/Symptoms: cl 110, Ca 8.3 Malnutrition Alert Is there a minimum of two criteria No selected? Query Text:Check all the applicable criteria. A minimum of two criteria are recommended for diagnosis of either severe or non-severe malnutrition. Malnutrition Related to Morbid Obesity Malnutrition related to morbid obesity No Intervention/Recommendation Comments 1. Continue with cardiac diet as ordered. [facility]g pt having difficulty of chewing. RN Vivi notified. 2. Monitor PO intake, wt, labs and skin integrity 3. F/U as high risk in 2-3 days, 05/12-05/13 Expected Outcomes/Goals Expected Outcomes/Goals 1. PO intake to meet at least 75% of nutritional needs. 2. Wt stability, skin to remain intact, labs to approach WNL.
[2018-05-16] MEDS ORDERED: D5LR 1,000 ML IV SCH (22:50)
--- NOTE | 2018-05-17 00:15 | Progress Notes ---
DATE: 05/16/2018 PULMONARY/CRITICAL CARE CONSULTATION REASON FOR CONSULTATION: Has managed the patient with shortness of breath. CONSULT NOTE: This is an 88-year-old gentleman who lives in a convalescent home, was admitted a few days ago because of possible pneumonia, hypotension and during the course of stay in the hospital, the patient was found to have bilateral inguinal hernia. Subsequently, there was some question as to patient possibly may have an occult gastrointestinal bleeding. Subsequently, workup was done and subsequently the patient was ____ hernia and the patient had taken to surgery this morning with hernia repair as well as orchiectomy. Postoperatively, the patient was left on the respirator. Hence, I was asked to see this patient for further care and necessary treatment. Meaningful detailed history from the patient is not available as the patient is currently intubated. PAST MEDICAL HISTORY: History of septic shock, pneumonia, history of hypertension, history of atrial fibrillation, history of COPD, history of dementia, smoking, other history is not available to me at this particular time. PHYSICAL EXAMINATION: GENERAL: This is an elderly looking gentleman. SYMPTOMS: Appears to be awake, not meaningful communication could be done. Currently on 50% of oxygen with SMV of 12. PHYSICAL EXAMINATION: VITAL SIGNS: The patient is afebrile, heart rate is regular about 110-120, blood pressure 102/72, saturation 100% on 50% of SMV. HEENT: Examination of the head is essentially unremarkable. Pupils appear to be equal and reacting to light. Conjunctivae pallor. Mouth shows orotracheal tube in situ, otherwise unremarkable. NECK: No nodes in the neck could be palpated. CHEST: Shows scattered rhonchi with diminished air entry. HEART: Irregular. ABDOMEN: Shows lower abdominal surgical scar. Otherwise, unremarkable. EXTREMITIES: Shows no peripheral edema. Poor pulsations, most distant. LABORATORY DATA: CBC, white count is 7.7, hemoglobin 9.8 and INR is okay. Blood gases done on 50% of oxygen shows a mild respiratory alkalosis, 7.5 with bicarb is 14 and electrolytes this morning, potassium is 2.9, otherwise unremarkable. Chest x-ray done this morning preoperatively shows some haziness in the bibasilar area with borderline cardiomegaly. IMPRESSION: The postoperative respiratory failure, underlying reason is not clear, probably recurrent from anesthesia, pain with possibly abdominal surgery with a background of history of COPD. PLANS AND SUGGESTIONS: We will give aggressive inhalation treatment, bronchodilator treatment. We will try to put on his low SMV filter support. Repeat chest x-ray, blood gases, if it is reasonably stable, hopefully can be extubated by tomorrow. JOB# [id number]
[2018-05-17] MEDS ORDERED: Norepinephrine 4 mg/4mL Vial IV ONE (01:58)
[2018-05-17] MEDS: Linezolid 600mg/300mL 600 MG/300 ML BAG IV SCH ×2 (02:33→14:24)
[2018-05-17] MEDS: Hydrocortisone Sodium Succ 100 mg Vial IVP SCH ×3 (05:27→20:27)
[2018-05-17 06:27] LABS: HEMATOCRIT 26.4 % (41.0-60); HEMOGLOBIN 8.8 gm/dL (12-16); LYMPHOCYTE ABSOLUTE 0.7 Th/cmm (1.5-3.0); MEAN CELL VOLUME 84.7 fl (80-99); MEAN CORPUSCULAR HEMOGLOBIN 28.3 pg (27.0-31.0); MEAN CORPUSCULAR HGB CONC 33.4 pg (28.0-36.0); MEAN PLATELET VOLUME 7.8 fl; MONOCYTE ABSOLUTE 0.6 Th/cmm (0.3-1.0); NEUTROPHILE ABSOLUTE 13.1 Th/cmm (1.8-8.0); PLATELET COUNT 356 Th/cmm (150-400); RED BLOOD COUNT 3.11 Mil/cmm (3.80-5.80); RED CELL DISTRIBUTION WIDTH 17.2 % (11.5-20.0); WHITE BLOOD COUNT 14.4 Th/cmm (4.8-10.8)
[2018-05-17 07:06] LABS: ALB/GLOB RATIO 0.9 (1.0-1.8); ALBUMIN 2.1 gm/dL (4.2-5.5); ALKALINE PHOSPHATASE 51 U/L (34-104); ANION GAP 11.9 (7.0-16.0); BILIRUBIN,TOTAL 0.6 mg/dL (0.3-1.0); BUN - UREA NITROGEN 21 mg/dL (7-25); CALCIUM SERUM 7.8 mg/dL (8.6-10.3); CARBON DIOXIDE 18.4 mEq/L (21.0-31.0); CHLORIDE 111 mEq/L (98-107); CREATININE - SERUM 0.9 mg/dL (0.7-1.3); GLUCOSE 206 mg/dL (70-105); POTASSIUM SERUM 3.3 mEq/L (3.5-5.1); SGOT 9 U/L (13-39); SGPT/ALT 9 U/L (7-52); SODIUM SERUM 138 mEq/L (136-145); TOTAL PROTEIN,SERUM 4.4 gm/dL (6.0-8.3)
[2018-05-17 08:24] LABS: BAND NEUTROPHILE 5 % (0-10); LYMPHOCYTE 5 % (20-50); MONOCYTE 3 % (2-10); NEUTROPHILS 87 % (40-80); PLATELET ESTIMATE ADEQUATE (NORMAL)
[2018-05-17] MEDS: Atorvastatin Calcium 10 MG TAB PO SCH (08:33)
[2018-05-17] MEDS: Ferrous Sulfate 325 MG TAB PO SCH (08:33)
--- NOTE | 2018-05-17 08:33 | Diagnostic Imaging Report ---
CHEST X-RAY: AP view INDICATION: Intubation COMPARISON: Chest x-ray earlier the same day FINDINGS: ET tube is in place with tip 4 cm above the Izabela. Findings of CHF are seen with bilateral effusions and infiltrates increased since prior exam. Cardiomegaly is noted with atherosclerosis. IMPRESSION: ET tube with tip 4 cm above the Izabela. CHF with bilateral effusions and infiltrates, increased since prior exam. There is likely superimposed pneumonia. Cardiomegaly and atherosclerotic vascular disease.
[2018-05-17] MEDS: Magnesium Chloride EC 64mg Tab PO SCH (08:34)
[2018-05-17] MEDS: Aspirin 81mg Chewable Tab PO SCH (08:34)
[2018-05-17] MEDS: Lactulose 10 Gm/15 mL 30mL UDC PO SCH ×3 (08:34→20:28)
[2018-05-17] MEDS: Pantoprazole 40 mg EC Tab PO SCH (08:34)
[2018-05-17] MEDS: KCL 20mEq/100mL Premix 20 MEQ/100 ML PIGGYBACK IV SCH ×2 (08:41→11:05)
--- NOTE | 2018-05-17 08:44 | Diagnostic Imaging Report ---
CHEST X-RAY: AP view INDICATION: Respiratory failure COMPARISON: 05/16/2018 FINDINGS: ET tube is seen with tip 5 cm above the Izabela. Persistent CHF is seen bilateral effusions and infiltrates. Cardiomegaly is noted. IMPRESSION: Persistent CHF the bilateral effusions and infiltrates. There is probable underlying pneumonia.
[2018-05-17] MEDS: Chlorhexidine Gluconate 0.12% 15mL Mouthwash MM SCH (08:51)
[2018-05-17] MEDS ORDERED: D5LR IV SCH (09:00)
[2018-05-17] MEDS ORDERED: POTASSIUM CHLORIDE IV SCH (09:00)
[2018-05-17] MEDS ORDERED: Potassium Chloride 20 mEq ER Tab PO ONE (09:04)
--- NOTE | 2018-05-17 09:13 | General Progress Note ---
Subjective - Review of Systems Service Date: 05/17/18 Events since last encounter: on 50% FIO2, AB G ordered scrotum normal sized LUIS drain 70 cc ABG ordered unable to reach son yesterday, will try again today Objective - Results Result Diagrams: 05/17/18 05:40 05/17/18 05:40 Recent Labs: Laboratory Last Values WBC 14.4 Th/cmm (4.8-10.8) H 05/17/18 05:40 RBC 3.11 Mil/cmm (3.80-5.80) L 05/17/18 05:40 Hgb 8.8 gm/dL (12-16) L 05/17/18 05:40 Hct 26.4 % (41.0-60) L 05/17/18 05:40 MCV 84.7 fl (80-99) 05/17/18 05:40 MCH 28.3 pg (27.0-31.0) 05/17/18 05:40 MCHC Differential 33.4 pg (28.0-36.0) 05/17/18 05:40 RDW 17.2 % (11.5-20.0) 05/17/18 05:40 Plt Count 356 Th/cmm (150-400) 05/17/18 05:40 MPV 7.8 fl 05/17/18 05:40 Add Manual Diff YES 05/17/18 05:40 Band Neutrophils % 5 % (0-10) 05/17/18 05:40 Neutrophils (Manual) 87 % (40-80) H 05/17/18 05:40 Lymphocytes 5 % (20-50) L 05/17/18 05:40 Monocytes 3 % (2-10) 05/17/18 05:40 Eosinophils 0 % (0-5) 05/16/18 04:30 Basophils 0 % (0-3) 05/16/18 04:30 Platelet Estimate ADEQUATE (NORMAL) 05/17/18 05:40 Total Retics Counted 1.1 % (0.5-1.5) 05/14/18 04:20 Absolute Retic 35.8 Th/cmm 05/14/18 04:20 Corrected Retic Count 0.7 % (0.5-1.5) 05/14/18 04:20 Plt Count 286 Th/cmm (150-750) 05/11/18 06:10 PT 12.1 SECONDS (9.5-11.5) H 05/16/18 04:30 INR 1.15 (0.5-1.4) 05/16/18 04:30 PTT (Actin FS) 29.9 SECONDS (26.0-38.0) 05/16/18 04:30 Fibrinogen 348.0 mg/dL (200.0-400.0) 05/11/18 06:10 D-Dimer 979 ng/mL (100-400) H 05/11/18 06:10 Specimen Source Arterial 05/16/18 16:15 Sample Site Left Radial 05/16/18 16:15 pH 7.52 (7.35-7.45) H 05/16/18 16:15 pCO2 26.0 mmHg (35.0-45.0) L 05/16/18 16:15 pO2 111.0 mmHg (80.0-100.0) H 05/16/18 16:15 HCO3 24.6 mEq/L (20.0-26.0) 05/16/18 16:15 Base Excess -0.5 mEq/L (-3.0-3.0) 05/16/18 16:15 O2 Saturation 99.0 % (92.0-100.0) 05/16/18 16:15 Titi Test Positive 05/16/18 16:15 Vent Rate 12 05/16/18 16:15 Inspired O2 50 05/16/18 16:15 Tidal Volume 600 05/16/18 16:15 PEEP 0 05/16/18 16:15 Pressure (ins/psv/peep) 10 05/16/18 16:15 Critical Value HSTEHNO 05/16/18 16:15 Sodium 138 mEq/L (136-145) 05/17/18 05:40 Potassium 3.3 mEq/L (3.5-5.1) L 05/17/18 05:40 Chloride 111 mEq/L (98-107) H 05/17/18 05:40 Carbon Dioxide 18.4 mEq/L (21.0-31.0) L 05/17/18 05:40 Anion Gap 11.9 (7.0-16.0) 05/17/18 05:40 BUN 21 mg/dL (7-25) 05/17/18 05:40 Creatinine 0.9 mg/dL (0.7-1.3) 05/17/18 05:40 Est GFR ( Amer) TNP 05/17/18 05:40 Est GFR (Non-Af Amer) TNP 05/17/18 05:40 BUN/Creatinine Ratio 23.3 05/17/18 05:40 Glucose 206 mg/dL (70-105) H 05/17/18 05:40 POC Glucose 97 MG/DL (70 - 105) 05/16/18 12:19 Calcium 7.8 mg/dL (8.6-10.3) L 05/17/18 05:40 Phosphorus 3.9 mg/dL (2.5-5.0) 05/11/18 04:45 Magnesium 2.0 mg/dL (1.9-2.7) 05/11/18 04:45 Iron 17 ug/dL (38-169) L 05/11/18 04:45 TIBC 234 ug/dL (250-450) L 05/11/18 04:45 Iron Saturation 7 % (15-55) L 05/11/18 04:45 Unsaturated IBC 217 ug/dL (111-343) 05/11/18 04:45 Ferritin 76 ng/mL (30-400) 05/11/18 04:45 Total Bilirubin 0.6 mg/dL (0.3-1.0) 05/17/18 05:40 Direct Bilirubin 0.13 mg/dL (0.0-0.2) 05/11/18 04:45 AST 9 U/L (13-39) L 05/17/18 05:40 ALT 9 U/L (7-52) 05/17/18 05:40 Alkaline Phosphatase 51 U/L (34-104) 05/17/18 05:40 Ammonia 44 umol/L (16-53) 05/17/18 05:40 Troponin I 0.03 ng/mL (0.01-0.05) 05/10/18 04:35 Total Protein 4.4 gm/dL (6.0-8.3) L 05/17/18 05:40 Albumin 2.1 gm/dL (4.2-5.5) L 05/17/18 05:40 Globulin 2.3 gm/dL 05/17/18 05:40 Albumin/Globulin Ratio 0.9 (1.0-1.8) L 05/17/18 05:40 Vitamin B12 982 pg/mL (232-1245) 05/11/18 04:45 Folic Acid 12.7 ng/mL (>3.0) 05/11/18 04:45 Stool Occult Blood POSITIVE (NEGATIVE) H 05/11/18 19:00 Vancomycin Trough 14.1 ug/mL (5-10) H 05/12/18 15:10 Blood Type A POSITIVE 05/10/18 08:10 Antibody Screen NEGATIVE 05/10/18 08:10 Crossmatch See Detail 05/10/18 08:10 - Physical Exam Vitals and I&O: Vital Signs Temp 98.6 F 05/17/18 07:00 Pulse 80 05/17/18 07:11 Resp 15 05/17/18 07:00 BP 103/62 05/17/18 07:00 Pulse Ox 100 05/17/18 07:11 Intake & Output 05/16/18 05/17/18 05/17/18 18:59 06:59 18:59 Intake Total 1460 909.359 670.096 Output Total 575 100 Balance 885 909.359 570.096 Weight (lbs) 78.471 kg 78.562 kg Intake: Intake, IV Amount 1460 909.359 670.096 D5lr 1,000 ml @ 80 mls/hr 664 IV .[id number] BRANDAN Rx#: [id number] KCL 20mEq/100mL Premix 20 200 meq In 100 ml @ 50 mls/ hr IV Q2H BRANDAN Rx#: [id number] Linezolid 600mg/300mL 600 210 300 mg In 300 ml @ 300 mls/ hr IV Q12H BRANDAN Rx#: [id number] Norepinephrine 4 mg In 331.026 6.096 Dextrose 5% 250 ml @ Per Protocol IV TITR PRN Rx#: [id number] Piperacillin Sodium/ 50 100 Tazobact 3.375 gm In Sodium Chloride 0.9% 50 ml @ 100 mls/hr IV Q8HR BRANDAN Rx#:[id number] Sodium Chloride 0.9% 1, 1000 178.333 000 ml @ 100 mls/hr IV . Q10H BRANDAN Rx#:[id number] Output: Drainage 25 80 RT QUADRANT LUIS 25 80 Urine 550 20 Other: # Bowel Movements 0 Weight Source Bedscale Bedscale Active Medications: Current Medications Acetaminophen (Tylenol) 650 mg PO Q4H PRN PRN Reason: Pain Or Fever above 101 Stop: 07/09/18 12:24 Acetaminophen/Hydrocodone Bitart ([place] 5mg/325mg) 1 tab PO Q4H PRN PRN Reason: Pain (Moderate) Stop: 07/09/18 12:22 Albuterol/Ipratropium (Duoneb Neb) 3 ml HHN Q4H PRN PRN Reason: Wheezing Stop: 07/15/18 20:27 Amiodarone HCl (Cordarone) 150 mg IV STAT PRN PRN PRN Reason: Cardiac Arrhythmia Stop: 07/09/18 12:26 Aspirin (Aspirin Chewable) 81 mg PO DAILY REPLACED BY [facility] Stop: 07/10/18 08:59 Last Admin: 05/17/18 08:34 Dose: Not Given Atorvastatin Calcium (Lipitor) 10 mg PO DAILY REPLACED BY [facility]; Protocol Stop: 07/10/18 08:59 Last Admin: 05/17/18 08:33 Dose: Not Given Atropine Sulfate (Atropine Syringe) 0.5 mg IVP PRN PRN PRN Reason: Cardiac Arrhythmia Stop: 07/09/18 12:34 Budesonide (Pulmicort) 0.5 mg HHN BIDRT REPLACED BY [facility] Stop: 07/16/18 06:59 Pool Oil/Tajik Balsam/Trypsin (Venelex) 1 appl TP DAILY BRANDAN Stop: 07/13/18 11:59 Last Admin: 05/15/18 09:05 Dose: 1 appl Chlorhexidine Gluconate (Peridex) 15 ml MM 08,1999 REPLACED BY [facility] Stop: 07/15/18 19:59 Last Admin: 05/17/18 08:51 Dose: 15 ml Donepezil HCl (Aricept) 5 mg PO HS BRANDAN Stop: 07/09/18 20:59 Last Admin: 05/16/18 20:41 Dose: Not Given Ferrous Sulfate (Iron) 325 mg PO DAILY REPLACED BY [facility] Stop: 07/09/18 11:59 Last Admin: 05/17/18 08:33 Dose: Not Given Heparin Sodium (Porcine) (Heparin) 5,000 units SUBQ Q12HR BRANDAN Stop: 07/09/18 20:59 Last Admin: 05/17/18 08:34 Dose: Not Given Hydrocortisone Sodium Succinate (Solu-Cortef) 100 mg IVP Q8HR REPLACED BY [facility] Stop: 07/09/18 12:59 Last Admin: 05/17/18 05:27 Dose: 100 mg Piperacillin Sod/Tazobactam (Sod 3.375 gm/ Sodium Chloride) 50 mls @ 100 mls/ hr IV Q8HR REPLACED BY [facility] Stop: 07/09/18 12:59 Last Infusion: 05/17/18 05:57 Dose: Infused Linezolid (Zyvox) 600 mg in 300 mls @ 300 mls/hr IV Q12H REPLACED BY [facility] Stop: 07/15/18 14:59 Last Infusion: 05/17/18 03:33 Dose: Infused Norepinephrine Bitartrate 4 mg (/ Dextrose) 254 mls @ 0 mls/hr IV TITR PRN; Protocol PRN Reason: To Keep SBP Above 90 Stop: 07/09/18 00:36 Last Titration: 05/17/18 07:15 Dose: 2 mcg/min, 7.62 mls/hr Dextrose/Lactated Ringer's (D5lr) 1,000 mls @ 80 mls/hr IV .[id number] REPLACED BY [facility] Stop: 07/15/18 22:49 Last Infusion: 05/17/18 07:13 Dose: 80 mls/hr Potassium Chloride (Potassium Chloride) 20 meq in 100 mls @ 50 mls/hr IV Q2H REPLACED BY [facility] Stop: 05/17/18 11:59 Last Admin: 05/17/18 08:41 Dose: 50 mls/hr Potassium Chloride 10 meq/ (Dextrose/Lactated Ringer's) 1,005 mls @ 80 mls/hr IV .[id number] REPLACED BY [facility] Stop: 07/16/18 08:59 Lactulose (Cephulac) 20 gm PO TID REPLACED BY [facility] Stop: 07/09/18 13:59 Last Admin: 05/17/18 08:34 Dose: Not Given Lorazepam (Ativan) 0.5 mg IV Q6HR PRN; Protocol PRN Reason: Agitation Stop: 07/09/18 00:33 Last Admin: 05/16/18 23:07 Dose: 0.5 mg Lorazepam (Ativan) 0.5 mg PO Q6HR PRN; Protocol PRN Reason: Agitation Stop: 07/09/18 12:10 Magnesium Chloride (Slow-Mag) 1 ect PO DAILY REPLACED BY [facility] Stop: 07/10/18 08:59 Last Admin: 05/17/18 08:34 Dose: Not Given Metoclopramide HCl (Reglan) 10 mg IVP Q8HR PRN PRN Reason: Abdominal Pain Stop: 07/09/18 12:14 Morphine Sulfate (Morphine) 1 mg IVP Q4H PRN PRN Reason: Severe Pain Stop: 07/09/18 13:47 Ondansetron HCl (Zofran) 4 mg IV Q8H PRN PRN Reason: Nausea / Vomiting Stop: 07/09/18 12:48 Pantoprazole Sodium (Protonix) 40 mg PO DAILY BRANDAN Stop: 07/10/18 11:44 Last Admin: 05/17/18 08:34 Dose: Not Given General: Other (sedated/intubated) HEENT: Atraumatic Neck: Supple Cardiovascular: Regular rate Lungs: Clear to auscultation Abdomen: Bowel sounds, Soft, no Tender, no Hepatomegaly, no Splenomegaly, no Distended, no Rebound, no Mass - Procedures Procedures: Procedures Procedure Code Date EXCISION OF LOWER ESOPHAGUS, ENDO, DIAGN [id number] 05/09/18 TRANSFUSE NONAUT RED BLOOD CELLS IN PERIPH VEIN, PERC 77724P8 05/09/18 Nutritional Asmnt/Malnutr-PDOC - Dietary Evaluation Malnutrition Findings (Please click <Entered> for more info): Nutritional Asmnt/Malnutrition Start: 05/10/18 14: 28 Text: Status: Complete Freq: Protocol: Document 05/10/18 14:29 LCHENG (Rec: 05/10/18 14:39 [email or web address] [id number]) Nutritional Asmnt/Malnutrition Patient General Information Nutritional Screening High Risk Diagnosis PNA, hypotension Pertinent Medical Hx/Surgical Hx PNA, COPD, mild alzheimer, PVD , UTI, sepsis Subjective Information Consult received for Tripp score 12. Pt seen resting in bed at time of visit. Per RN, pt is on levophed. pt likes to eat, consumed about 50% of breakfast this morning. Pt took long time to chew food per RN. Current Diet Order/ Nutrition Support cardiac, soft Pertinent Medications Iron, cephulac, piperacillin, nacl 0.9%, vancomycin Pertinent Labs 05/10 Cl 110, glucose 115, Ca 8 .3, alb 2.4 Nutritional Hx/Data Height 1.63 m Height (Calculated Centimeters) 162.6 Current Weight (lbs) 58.967 kg Weight (Calculated Kilograms) 59.0 Weight (Calculated Grams) 20087.0 [place] Body Weight 130 Body Mass Index (BMI) 22.3 Weight Status Approriate GI Symptoms GI Symptoms None Last BM not indicated Difficult in: None Skin Integrity/Comment: scar from old pressure ulcer to sacrum Tripp score 12 Current %PO Fair (50-74%) Estimated Nutritional Goals BEE in Kcals: Using Current wt Calories/Kcals/Kg 27-32 Kcals Calculated 0062-7476 Protein: Using Current wt Protein g/k-1.2 Protein Calculated 59-71 Fluid: ml 1593-1888ml (1ml/kcal) Nutritional Problem 2. Problem Problem increased nutrition needs Etiology increased metabolic demand Signs/Symptoms: dx of PNA 1. Problem Problem altered nutrition relatedl abs Etiology electrolytes imbalance Signs/Symptoms: cl 110, Ca 8.3 Malnutrition Alert Is there a minimum of two criteria No selected? Query Text:Check all the applicable criteria. A minimum of two criteria are recommended for diagnosis of either severe or non-severe malnutrition. Malnutrition Related to Morbid Obesity Malnutrition related to morbid obesity No Intervention/Recommendation Comments 1. Continue with cardiac diet as ordered. Recommend [facility] soft ground diet d/g pt having difficulty of chewing. RN Vivi notified. 2. Monitor PO intake, wt, labs and skin integrity 3. F/U as high risk in 2-3 days, 05/12-05/13 Expected Outcomes/Goals Expected Outcomes/Goals 1. PO intake to meet at least 75% of nutritional needs. 2. Wt stability, skin to remain intact, labs to approach WNL.
[2018-05-17] MEDS: Budesonide 0.5 Mg/2 mL Ud HHN SCH ×2 (09:24→18:49)
[2018-05-17 09:28] LABS: ALLEN TEST YES
[2018-05-17] MEDS ORDERED: Septra IV Per Pharmacy MC SCH (13:00)
[2018-05-17] MEDS: Potassium Chloride 10 MEQ in D5-0.9%NS 1,000 ML IV SCH (13:17)
[2018-05-17] MEDS: SULFAMETHOXAZOLE IV SCH ×2 (15:40→20:27)
[2018-05-17] MEDS: TRIMETHOPRI IV SCH ×2 (15:40→20:27)
[2018-05-17] MEDS: DEXTROSE IV SCH ×2 (15:40→20:27)
[2018-05-17 21:04] LABS: A1C % 6.1 % (4.0-6.0)
--- NOTE | 2018-05-17 22:33 | Progress Notes ---
DATE: 05/17/2018 PULMONARY PROGRESS NOTE PROBLEM LIST: 1. Postoperative respiratory failure. 2. Chronic obstructive pulmonary disease. 3. Hypotension. 4. ____ septicemia. SYMPTOMS: The patient is awake, alert, very minimal dose of Levophed. No respiratory distress, on currently CPAP with pressure support. PHYSICAL EXAMINATION. VITAL SIGNS: The patient is afebrile, heart rate is in 70s, BP is within normal limits and saturation is okay 100% on CPAP with pressure support. ENT: Shows no new changes. CHEST: Shows diminished air entry at the bases, otherwise unremarkable. HEART: Regular. ABDOMEN: Soft, nontender. LABORATORY DATA: The patient's chest x-ray shows some haziness bibasilar indicative of possibly fluid and the patient's white count is 14,000, hemoglobin 8.8. ABG, pO2 is 101 on 40% of oxygen with CPAP with pressor support. ASSESSMENT: The patient clinically slowly improving and tolerating weaning so far so good. PLANS AND SUGGESTIONS: We will go ahead and extubate the patient today for p.r.n. BiPAP daytime, regular at nighttime and see how he does in the next 24-48 hours and go from there. JOB# [id number]
--- NOTE | 2018-05-18 | Internal Medicine Prog Note ---
Internal Medicine Subjective - Subjective Service Date: 05/17/18 Patient seen and examined:: without staff Patient is:: asleep, eyes closed, in bed Per staff patient has:: no adverse event, other (s/p bl Inguinal hernia repair, intubated.) Internal Medicine Objective - Results Result Diagrams: 05/17/18 05:40 05/17/18 05:40 Recent Labs: Laboratory Last Values WBC 14.4 Th/cmm (4.8-10.8) H 05/17/18 05:40 RBC 3.11 Mil/cmm (3.80-5.80) L 05/17/18 05:40 Hgb 8.8 gm/dL (12-16) L 05/17/18 05:40 Hct 26.4 % (41.0-60) L 05/17/18 05:40 MCV 84.7 fl (80-99) 05/17/18 05:40 MCH 28.3 pg (27.0-31.0) 05/17/18 05:40 MCHC Differential 33.4 pg (28.0-36.0) 05/17/18 05:40 RDW 17.2 % (11.5-20.0) 05/17/18 05:40 Plt Count 356 Th/cmm (150-400) 05/17/18 05:40 MPV 7.8 fl 05/17/18 05:40 Add Manual Diff YES 05/17/18 05:40 Band Neutrophils % 5 % (0-10) 05/17/18 05:40 Neutrophils (Manual) 87 % (40-80) H 05/17/18 05:40 Lymphocytes 5 % (20-50) L 05/17/18 05:40 Monocytes 3 % (2-10) 05/17/18 05:40 Eosinophils 0 % (0-5) 05/16/18 04:30 Basophils 0 % (0-3) 05/16/18 04:30 Platelet Estimate ADEQUATE (NORMAL) 05/17/18 05:40 Total Retics Counted 1.1 % (0.5-1.5) 05/14/18 04:20 Absolute Retic 35.8 Th/cmm 05/14/18 04:20 Corrected Retic Count 0.7 % (0.5-1.5) 05/14/18 04:20 Plt Count 286 Th/cmm (150-750) 05/11/18 06:10 PT 12.1 SECONDS (9.5-11.5) H 05/16/18 04:30 INR 1.15 (0.5-1.4) 05/16/18 04:30 PTT (Actin FS) 29.9 SECONDS (26.0-38.0) 05/16/18 04:30 Fibrinogen 348.0 mg/dL (200.0-400.0) 05/11/18 06:10 D-Dimer 979 ng/mL (100-400) H 05/11/18 06:10 Specimen Source Arterial 05/17/18 09:15 Sample Site Left Radial 05/17/18 09:15 pH 7.40 (7.35-7.45) 05/17/18 09:15 pCO2 33.0 mmHg (35.0-45.0) L 05/17/18 09:15 pO2 101.0 mmHg (80.0-100.0) H 05/17/18 09:15 HCO3 22.1 mEq/L (20.0-26.0) 05/17/18 09:15 Base Excess -3.6 mEq/L (-3.0-3.0) L 05/17/18 09:15 O2 Saturation 98.0 % (92.0-100.0) 05/17/18 09:15 Titi Test YES 05/17/18 09:15 Vent Rate NA 05/17/18 09:15 Inspired O2 40 05/17/18 09:15 Tidal Volume NA 05/17/18 09:15 PEEP NA 05/17/18 09:15 Pressure (ins/psv/peep) 12 05/17/18 09:15 Critical Value E.MC 05/17/18 09:15 Sodium 138 mEq/L (136-145) 05/17/18 05:40 Potassium 3.3 mEq/L (3.5-5.1) L 05/17/18 05:40 Chloride 111 mEq/L (98-107) H 05/17/18 05:40 Carbon Dioxide 18.4 mEq/L (21.0-31.0) L 05/17/18 05:40 Anion Gap 11.9 (7.0-16.0) 05/17/18 05:40 BUN 21 mg/dL (7-25) 05/17/18 05:40 Creatinine 0.9 mg/dL (0.7-1.3) 05/17/18 05:40 Est GFR ( Amer) TNP 05/17/18 05:40 Est GFR (Non-Af Amer) TNP 05/17/18 05:40 BUN/Creatinine Ratio 23.3 05/17/18 05:40 Glucose 206 mg/dL (70-105) H 05/17/18 05:40 POC Glucose 97 MG/DL (70 - 105) 05/16/18 12:19 Hemoglobin A1c % 6.1 % (4.0-6.0) H 05/17/18 05:40 Calcium 7.8 mg/dL (8.6-10.3) L 05/17/18 05:40 Phosphorus 3.9 mg/dL (2.5-5.0) 05/11/18 04:45 Magnesium 2.0 mg/dL (1.9-2.7) 05/11/18 04:45 Iron 17 ug/dL (38-169) L 05/11/18 04:45 TIBC 234 ug/dL (250-450) L 05/11/18 04:45 Iron Saturation 7 % (15-55) L 05/11/18 04:45 Unsaturated IBC 217 ug/dL (111-343) 05/11/18 04:45 Ferritin 76 ng/mL (30-400) 05/11/18 04:45 Total Bilirubin 0.6 mg/dL (0.3-1.0) 05/17/18 05:40 Direct Bilirubin 0.13 mg/dL (0.0-0.2) 05/11/18 04:45 AST 9 U/L (13-39) L 05/17/18 05:40 ALT 9 U/L (7-52) 05/17/18 05:40 Alkaline Phosphatase 51 U/L (34-104) 05/17/18 05:40 Ammonia 44 umol/L (16-53) 05/17/18 05:40 Troponin I 0.03 ng/mL (0.01-0.05) 05/10/18 04:35 Total Protein 4.4 gm/dL (6.0-8.3) L 05/17/18 05:40 Albumin 2.1 gm/dL (4.2-5.5) L 05/17/18 05:40 Globulin 2.3 gm/dL 05/17/18 05:40 Albumin/Globulin Ratio 0.9 (1.0-1.8) L 05/17/18 05:40 Vitamin B12 982 pg/mL (232-1245) 05/11/18 04:45 Folic Acid 12.7 ng/mL (>3.0) 05/11/18 04:45 Stool Occult Blood POSITIVE (NEGATIVE) H 05/11/18 19:00 Vancomycin Trough 14.1 ug/mL (5-10) H 05/12/18 15:10 Blood Type A POSITIVE 05/10/18 08:10 Antibody Screen NEGATIVE 05/10/18 08:10 Crossmatch See Detail 05/10/18 08:10 - Physical Exam Vitals and I&O: Vital Signs Temp 97.4 F 05/17/18 23:00 Pulse 73 05/17/18 23:30 Resp 16 05/17/18 23:00 BP 96/61 05/17/18 23:30 Pulse Ox 99 05/17/18 23:00 Intake & Output 05/17/18 05/17/18 05/18/18 06:59 18:59 06:59 Intake Total 049.659 5934.096 105.346 Output Total 775 Balance 909.359 815.096 105.346 Weight (lbs) 83.098 kg Intake: Intake, IV Amount 755.197 7713.096 105.346 D5lr 1,000 ml @ 80 mls/hr 664 IV .[id number] [facility] Rx#: [id number] KCL 20mEq/100mL Premix 20 100 meq In 100 ml @ 50 mls/ hr IV Q2H [facility] Rx#: [id number] Linezolid 600mg/300mL 600 300 300 mg In 300 ml @ 300 mls/ hr IV Q12H [facility] Rx#: [id number] Norepinephrine 4 mg In 331.026 6.096 105.346 Dextrose 5% 250 ml @ Per Protocol IV TITR PRN Rx#: [id number] Piperacillin Sodium/ 100 Tazobact 3.375 gm In Sodium Chloride 0.9% 50 ml @ 100 mls/hr IV Q8HR [facility] Rx#:[id number] Sodium Chloride 0.9% 1, 178.333 000 ml @ 100 mls/hr IV . Q10H [facility] Rx#:[id number] Sulfamethoxazole/ 520 Trimethopri 20 ml In Dextrose 5% 500 ml @ 250 mls/hr IV Q6H [facility] Rx#: [id number] Output: Drainage 130 RT QUADRANT LUIS 130 Urine 645 Other: # Bowel Movements 0 Weight Source Bedscale Active Medications: Current Medications Acetaminophen (Tylenol) 650 mg PO Q4H PRN PRN Reason: Pain Or Fever above 101 Stop: 07/09/18 12:24 Acetaminophen/Hydrocodone Bitart ([place] 5mg/325mg) 1 tab PO Q4H PRN PRN Reason: Pain (Moderate) Stop: 07/09/18 12:22 Albuterol/Ipratropium (Duoneb Neb) 3 ml HHN Q4H PRN PRN Reason: Wheezing Stop: 07/15/18 20:27 Amiodarone HCl (Cordarone) 150 mg IV STAT PRN PRN PRN Reason: Cardiac Arrhythmia Stop: 07/09/18 12:26 Aspirin (Aspirin Chewable) 81 mg PO DAILY [facility] Stop: 07/10/18 08:59 Last Admin: 05/17/18 08:34 Dose: Not Given Atorvastatin Calcium (Lipitor) 10 mg PO DAILY [facility]; Protocol Stop: 07/10/18 08:59 Last Admin: 05/17/18 08:33 Dose: Not Given Atropine Sulfate (Atropine Syringe) 0.5 mg IVP PRN PRN PRN Reason: Cardiac Arrhythmia Stop: 07/09/18 12:34 Budesonide (Pulmicort) 0.5 mg HHN BIDRT [facility] Stop: 07/16/18 06:59 Last Admin: 05/17/18 18:49 Dose: 0.5 mg [place] Oil/[place] Balsam/Trypsin (Venelex) 1 appl TP DAILY [facility] Stop: 07/13/18 11:59 Last Admin: 05/15/18 09:05 Dose: 1 appl Donepezil HCl (Aricept) 5 mg PO HS [facility] Stop: 07/09/18 20:59 Last Admin: 05/17/18 20:28 Dose: Not Given Ferrous Sulfate (Iron) 325 mg PO DAILY [facility] Stop: 07/09/18 11:59 Last Admin: 05/17/18 08:33 Dose: Not Given Heparin Sodium (Porcine) (Heparin) 5,000 units SUBQ Q12HR [facility] Stop: 07/09/18 20:59 Last Admin: 05/17/18 20:28 Dose: Not Given Hydrocortisone Sodium Succinate (Solu-Cortef) 100 mg IVP Q8HR [facility] Stop: 07/09/18 12:59 Last Admin: 05/17/18 20:27 Dose: 100 mg Linezolid (Zyvox) 600 mg in 300 mls @ 300 mls/hr IV Q12H [facility] Stop: 07/15/18 14:59 Last Infusion: 05/17/18 15:30 Dose: Infused Norepinephrine Bitartrate 4 mg (/ Dextrose) 254 mls @ 0 mls/hr IV TITR PRN; Protocol PRN Reason: To Keep SBP Above 90 Stop: 07/09/18 00:36 Last Titration: 05/17/18 21:40 Dose: 0 mcg/min, 0 mls/hr Potassium Chloride 10 meq/ (Dextrose/Sodium Chloride) 1,005 mls @ 80 mls/hr IV .[id number] [facility] Stop: 07/16/18 11:59 Last Admin: 05/17/18 13:17 Dose: 80 mls/hr Trimethoprim/Sulfamethoxazole (20 ml/ Dextrose) 520 mls @ 250 mls/hr IV Q6H [facility] Stop: 07/16/18 13:59 Last Admin: 05/17/18 20:27 Dose: 250 mls/hr Lactulose (Cephulac) 20 gm PO TID [facility] Stop: 07/09/18 13:59 Last Admin: 05/17/18 20:28 Dose: Not Given Lorazepam (Ativan) 0.5 mg IV Q6HR PRN; Protocol PRN Reason: Agitation Stop: 07/09/18 00:33 Last Admin: 05/16/18 23:07 Dose: 0.5 mg Lorazepam (Ativan) 0.5 mg PO Q6HR PRN; Protocol PRN Reason: Agitation Stop: 07/09/18 12:10 Magnesium Chloride (Slow-Mag) 1 ect PO DAILY [facility] Stop: 07/10/18 08:59 Last Admin: 05/17/18 08:34 Dose: Not Given Metoclopramide HCl (Reglan) 10 mg IVP Q8HR PRN PRN Reason: Abdominal Pain Stop: 07/09/18 12:14 Morphine Sulfate (Morphine) 1 mg IVP Q4H PRN PRN Reason: Severe Pain Stop: 07/09/18 13:47 Ondansetron HCl (Zofran) 4 mg IV Q8H PRN PRN Reason: Nausea / Vomiting Stop: 07/09/18 12:48 Pantoprazole Sodium (Protonix) 40 mg PO DAILY [facility] Stop: 07/10/18 11:44 Last Admin: 05/17/18 08:34 Dose: Not Given Trimethoprim/Sulfamethoxazole (Bactrim Iv Per Pharmacy) 1 ea MC PRN [facility] Stop: 07/16/18 12:59 General: weak, lethargic, congested HEENT: NC/AT Neck: Supple, No JVD, No thyromegaly, No LAD Lungs: wheezing, ronchi Cardiovascular: other (iregular.) Abdomen: soft, non-tender, non-distended, positive bowel sound Extremities: clear - Procedures Procedures: Procedures Procedure Code Date EXCISION OF LOWER ESOPHAGUS, ENDO, DIAGN [id number] 05/09/18 EXCISION OF SCROTUM, OPEN APPROACH [id number] 05/09/18 REPAIR BILATERAL INGUINAL REGION, OPEN APPROACH [id number] 05/09/18 RESPIRATORY VENTILATION, LESS THAN 24 CONSECUTIVE HOURS [id number] 05/09/18 TRANSFUSE NONAUT RED BLOOD CELLS IN PERIPH VEIN, PERC [id number] 05/09/18 Internal Medicine Assmt/Plan - Assessment Assessment: Sepsis: IVPB ABX, Levaphed drip to keep SBO >90 in the ICU. Acute Leukocytosis: multifactorial; adjusting ABX; repeat CBC in AM. Hypokalemia: supplement. s/p bl. inguinal hernia repair. ALOC: on and off, observe closely in ICU. S/P EGD today: gastritis; esophagitis. Rt Scrotal abscess with drainage: G/s, C&S ordered; Surgical consult appreciated. PNA: IVPB ABX. Anemia: OB +x3; s/p PRBC. CAD: s/p MT h/o A. Fib: rate controlled. PVD Nutritional Asmnt/Malnutr-PDOC - Dietary Evaluation Malnutrition Findings (Please click <Entered> for more info): Nutritional Asmnt/Malnutrition Start: 05/10/18 14: 28 Text: Status: Complete Freq: Protocol: Document 05/10/18 14:29 LCHENG (Rec: 05/10/18 14:39 [email or web address] [id number]) Nutritional Asmnt/Malnutrition Patient General Information Nutritional Screening High Risk Diagnosis PNA, hypotension Pertinent Medical Hx/Surgical Hx PNA, COPD, mild alzheimer, PVD , UTI, sepsis Subjective Information Consult received for Tripp score 12. Pt seen resting in bed at time of visit. Per RN, pt is on levophed. pt likes to eat, consumed about 50% of breakfast this morning. Pt took long time to chew food per RN. 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 Problem Problem increased nutrition needs Etiology increased metabolic demand Signs/Symptoms: dx of PNA 1. Problem Problem altered nutrition relatedl abs Etiology electrolytes imbalance Signs/Symptoms: cl 110, Ca 8.3 Malnutrition Alert Is there a minimum of two criteria No selected? Query Text:Check all the applicable criteria. A minimum of two criteria are recommended for diagnosis of either severe or non-severe malnutrition. Malnutrition Related to Morbid Obesity Malnutrition related to morbid obesity No Intervention/Recommendation Comments 1. Continue with cardiac diet as ordered. [facility] d/g pt having difficulty of chewing. REENA Trinidad notified. 2. Monitor PO intake, wt, labs and skin integrity 3. F/U as high risk in 2-3 days, 05/12-05/13 Expected Outcomes/Goals Expected Outcomes/Goals 1. PO intake to meet at least 75% of nutritional needs. 2. Wt stability, skin to remain intact, labs to approach WNL.
[2018-05-18] MEDS: TRIMETHOPRI IV SCH ×4 (01:41→20:42)
[2018-05-18] MEDS: SULFAMETHOXAZOLE IV SCH ×4 (01:41→20:42)
[2018-05-18] MEDS: DEXTROSE IV SCH ×4 (01:41→20:42)
[2018-05-18] MEDS: Linezolid 600mg/300mL 600 MG/300 ML BAG IV SCH ×2 (04:08→15:52)
[2018-05-18 04:45] LABS: MEAN CELL VOLUME 84.2 fl (80-99); MEAN CORPUSCULAR HEMOGLOBIN 28.8 pg (27.0-31.0); MEAN CORPUSCULAR HGB CONC 34.2 pg (28.0-36.0); RED BLOOD COUNT 2.36 Mil/cmm (3.80-5.80); RED CELL DISTRIBUTION WIDTH 17.6 % (11.5-20.0); WHITE BLOOD COUNT 10.2 Th/cmm (4.8-10.8)
[2018-05-18 05:02] LABS: HEMATOCRIT 19.9 % (41.0-60); HEMOGLOBIN 6.8 gm/dL (12-16); PLATELET COUNT 196 Th/cmm (150-400)
[2018-05-18] MEDS: Hydrocortisone Sodium Succ 100 mg Vial IVP SCH ×3 (05:10→20:47)
[2018-05-18 05:16] LABS: ALB/GLOB RATIO 0.9 (1.0-1.8); ALBUMIN 1.9 gm/dL (4.2-5.5); ALKALINE PHOSPHATASE 41 U/L (34-104); ANION GAP 10.6 (7.0-16.0); BILIRUBIN,TOTAL 0.3 mg/dL (0.3-1.0); BUN - UREA NITROGEN 14 mg/dL (7-25); CALCIUM SERUM 7.6 mg/dL (8.6-10.3); CARBON DIOXIDE 19.7 mEq/L (21.0-31.0); CHLORIDE 108 mEq/L (98-107); CREATININE - SERUM 0.8 mg/dL (0.7-1.3); GLUCOSE 182 mg/dL (70-105); POTASSIUM SERUM 3.3 mEq/L (3.5-5.1); SGOT 9 U/L (13-39); SGPT/ALT 6 U/L (7-52); SODIUM SERUM 135 mEq/L (136-145); TOTAL PROTEIN,SERUM 4.1 gm/dL (6.0-8.3)
[2018-05-18 05:58] LABS: BAND NEUTROPHILE 4 % (0-10); LYMPHOCYTE 4 % (20-50); MONOCYTE 2 % (2-10); NEUTROPHILS 90 % (40-80); PLATELET ESTIMATE ADEQUATE (NORMAL)
[2018-05-18] MEDS: Budesonide 0.5 Mg/2 mL Ud HHN SCH ×2 (06:53→19:09)
[2018-05-18] MEDS ORDERED: KCL 20mEq/100mL Premix 20 MEQ/100 ML PIGGYBACK IV ONE ×3 (08:30→20:22)
[2018-05-18] MEDS ORDERED: KCL 20mEq/100mL Premix 20 MEQ/100 ML PIGGYBACK IV SCH (08:45)
--- NOTE | 2018-05-18 08:53 | Diagnostic Imaging Report ---
CHEST X-RAY: AP view INDICATION: Effusion/pneumonia COMPARISON: 05/17/2018 FINDINGS: The prior ET tube is been removed. Findings of CHF are again noted bilateral effusions and infiltrates left greater than right. Cardiomegaly is noted. IMPRESSION: Interval extubation. Persistent CHF with bilateral effusions, left greater than right, and bilateral diffuse infiltrates. Cardiomegaly.
[2018-05-18] MEDS: Ferrous Sulfate 325 MG TAB PO SCH (09:00)
[2018-05-18] MEDS: Pantoprazole 40 mg EC Tab PO SCH (09:00)
[2018-05-18] MEDS: Atorvastatin Calcium 10 MG TAB PO SCH (09:00)
[2018-05-18] MEDS: Venelex 60gm Tube TP SCH ×2 (09:00)
[2018-05-18] MEDS: Aspirin 81mg Chewable Tab PO SCH (09:00)
[2018-05-18] MEDS: Lactulose 10 Gm/15 mL 30mL UDC PO SCH ×3 (09:00→20:55)
[2018-05-18] MEDS: Magnesium Chloride EC 64mg Tab PO SCH (09:00)
[2018-05-18 09:31] LABS: pH 7.46 (7.35-7.45)
[2018-05-18 09:32] LABS: ALLEN TEST YES
--- NOTE | 2018-05-18 12:57 | General Progress Note ---
Subjective - Review of Systems Service Date: 05/18/18 Events since last encounter: Hb 6.8, to have PRBC needs central line, informed consent discussed with son Objective - Results Result Diagrams: 05/18/18 04:35 05/18/18 04:35 Recent Labs: Laboratory Last Values WBC 10.2 Th/cmm (4.8-10.8) 05/18/18 04:35 RBC 2.36 Mil/cmm (3.80-5.80) L 05/18/18 04:35 Hgb 6.8 gm/dL (12-16) L* D 05/18/18 04:35 Hct 19.9 % (41.0-60) L* D 05/18/18 04:35 MCV 84.2 fl (80-99) 05/18/18 04:35 MCH 28.8 pg (27.0-31.0) 05/18/18 04:35 MCHC Differential 34.2 pg (28.0-36.0) 05/18/18 04:35 RDW 17.6 % (11.5-20.0) 05/18/18 04:35 Plt Count 196 Th/cmm (150-400) D 05/18/18 04:35 MPV 7.0 fl 05/18/18 04:35 Add Manual Diff YES 05/18/18 04:35 Band Neutrophils % 4 % (0-10) 05/18/18 04:35 Neutrophils (Manual) 90 % (40-80) H 05/18/18 04:35 Lymphocytes 4 % (20-50) L 05/18/18 04:35 Monocytes 2 % (2-10) 05/18/18 04:35 Eosinophils 0 % (0-5) 05/16/18 04:30 Basophils 0 % (0-3) 05/16/18 04:30 Platelet Estimate ADEQUATE (NORMAL) 05/18/18 04:35 Total Retics Counted 1.1 % (0.5-1.5) 05/14/18 04:20 Absolute Retic 35.8 Th/cmm 05/14/18 04:20 Corrected Retic Count 0.7 % (0.5-1.5) 05/14/18 04:20 Plt Count 286 Th/cmm (150-750) 05/11/18 06:10 PT 12.1 SECONDS (9.5-11.5) H 05/16/18 04:30 INR 1.15 (0.5-1.4) 05/16/18 04:30 PTT (Actin FS) 29.9 SECONDS (26.0-38.0) 05/16/18 04:30 Fibrinogen 348.0 mg/dL (200.0-400.0) 05/11/18 06:10 D-Dimer 979 ng/mL (100-400) H 05/11/18 06:10 Specimen Source Arterial 05/18/18 09:20 Sample Site Left Radial 05/18/18 09:20 pH 7.46 (7.35-7.45) H 05/18/18 09:20 pCO2 32.0 mmHg (35.0-45.0) L 05/18/18 09:20 pO2 74.0 mmHg (80.0-100.0) L 05/18/18 09:20 HCO3 24.6 mEq/L (20.0-26.0) 05/18/18 09:20 Base Excess -0.4 mEq/L (-3.0-3.0) 05/18/18 09:20 O2 Saturation 95.0 % (92.0-100.0) 05/18/18 09:20 Titi Test YES 05/18/18 09:20 Vent Rate NA 05/18/18 09:20 Inspired O2 28 05/18/18 09:20 Tidal Volume NA 05/18/18 09:20 PEEP NA 05/18/18 09:20 Pressure (ins/psv/peep) NA 05/18/18 09:20 Critical Value E.MC 05/18/18 09:20 Sodium 135 mEq/L (136-145) L 05/18/18 04:35 Potassium 3.3 mEq/L (3.5-5.1) L 05/18/18 04:35 Chloride 108 mEq/L (98-107) H 05/18/18 04:35 Carbon Dioxide 19.7 mEq/L (21.0-31.0) L 05/18/18 04:35 Anion Gap 10.6 (7.0-16.0) 05/18/18 04:35 BUN 14 mg/dL (7-25) 05/18/18 04:35 Creatinine 0.8 mg/dL (0.7-1.3) 05/18/18 04:35 Est GFR ( Amer) TNP 05/18/18 04:35 Est GFR (Non-Af Amer) TNP 05/18/18 04:35 BUN/Creatinine Ratio 17.5 05/18/18 04:35 Glucose 182 mg/dL (70-105) H 05/18/18 04:35 POC Glucose 97 MG/DL (70 - 105) 05/16/18 12:19 Hemoglobin A1c % 6.1 % (4.0-6.0) H 05/17/18 05:40 Calcium 7.6 mg/dL (8.6-10.3) L 05/18/18 04:35 Phosphorus 3.9 mg/dL (2.5-5.0) 05/11/18 04:45 Magnesium 2.0 mg/dL (1.9-2.7) 05/11/18 04:45 Iron 17 ug/dL (38-169) L 05/11/18 04:45 TIBC 234 ug/dL (250-450) L 05/11/18 04:45 Iron Saturation 7 % (15-55) L 05/11/18 04:45 Unsaturated IBC 217 ug/dL (111-343) 05/11/18 04:45 Ferritin 76 ng/mL (30-400) 05/11/18 04:45 Total Bilirubin 0.3 mg/dL (0.3-1.0) 05/18/18 04:35 Direct Bilirubin 0.13 mg/dL (0.0-0.2) 05/11/18 04:45 AST 9 U/L (13-39) L 05/18/18 04:35 ALT 6 U/L (7-52) L 05/18/18 04:35 Alkaline Phosphatase 41 U/L (34-104) 05/18/18 04:35 Ammonia 44 umol/L (16-53) 05/17/18 05:40 Troponin I 0.03 ng/mL (0.01-0.05) 05/10/18 04:35 Total Protein 4.1 gm/dL (6.0-8.3) L 05/18/18 04:35 Albumin 1.9 gm/dL (4.2-5.5) L 05/18/18 04:35 Globulin 2.2 gm/dL 05/18/18 04:35 Albumin/Globulin Ratio 0.9 (1.0-1.8) L 05/18/18 04:35 Vitamin B12 982 pg/mL (232-1245) 05/11/18 04:45 Folic Acid 12.7 ng/mL (>3.0) 05/11/18 04:45 Stool Occult Blood POSITIVE (NEGATIVE) H 05/11/18 19:00 Vancomycin Trough 14.1 ug/mL (5-10) H 05/12/18 15:10 Blood Type A POSITIVE 05/18/18 09:34 Rho(D) Type Cancelled 05/18/18 09:34 Antibody Screen NEGATIVE 05/18/18 09:34 Crossmatch See Detail 05/18/18 09:34 BBK History Checked Cancelled 05/18/18 09:34 - Physical Exam Vitals and I&O: Vital Signs Temp 97.8 F 05/18/18 05:00 Pulse 86 05/18/18 10:00 Resp 15 05/18/18 10:00 BP 152/87 05/18/18 10:00 Pulse Ox 98 05/18/18 10:00 Intake & Output 05/17/18 05/18/18 05/18/18 18:59 06:59 18:59 Intake Total 0063.944 5116.746 Output Total 775 890 Balance 815.096 580.746 Weight (lbs) 83.098 kg 83.915 kg Intake: Intake, IV Amount 8871.077 0212.746 D5lr 1,000 ml @ 80 mls/hr 664 IV .[id number] [facility] Rx#: [id number] KCL 20mEq/100mL Premix 20 100 meq In 100 ml @ 50 mls/ hr IV Q2H [facility] Rx#: [id number] Linezolid 600mg/300mL 600 300 300 mg In 300 ml @ 300 mls/ hr IV Q12H [facility] Rx#: [id number] Norepinephrine 4 mg In 6.096 130.746 Dextrose 5% 250 ml @ Per Protocol IV TITR PRN Rx#: [id number] Sulfamethoxazole/ 520 1040 Trimethopri 20 ml In Dextrose 5% 500 ml @ 250 mls/hr IV Q6H [facility] Rx#: [id number] Output: Drainage 130 40 RT QUADRANT LUIS 130 40 Urine 645 850 Other: # Bowel Movements 0 1 Weight Source Bedscale Bedscale Active Medications: Current Medications Acetaminophen (Tylenol) 650 mg PO Q4H PRN PRN Reason: Pain Or Fever above 101 Stop: 07/09/18 12:24 Acetaminophen (Tylenol 650mg Supp) 650 mg RC Q6H PRN PRN Reason: Pain or Fever >101 Stop: 07/17/18 10:43 Acetaminophen/Hydrocodone Bitart ([place] 5mg/325mg) 1 tab PO Q4H PRN PRN Reason: Pain (Moderate) Stop: 07/09/18 12:22 Albuterol/Ipratropium (Duoneb Neb) 3 ml HHN Q4H PRN PRN Reason: Wheezing Stop: 07/15/18 20:27 Amiodarone HCl (Cordarone) 150 mg IV STAT PRN PRN PRN Reason: Cardiac Arrhythmia Stop: 07/09/18 12:26 Aspirin (Aspirin Chewable) 81 mg PO DAILY [facility] Stop: 07/10/18 08:59 Last Admin: 05/17/18 08:34 Dose: Not Given Atorvastatin Calcium (Lipitor) 10 mg PO DAILY [facility]; Protocol Stop: 07/10/18 08:59 Last Admin: 05/17/18 08:33 Dose: Not Given Atropine Sulfate (Atropine Syringe) 0.5 mg IVP PRN PRN PRN Reason: Cardiac Arrhythmia Stop: 07/09/18 12:34 Budesonide (Pulmicort) 0.5 mg HHN BIDRT [facility] Stop: 07/16/18 06:59 Last Admin: 05/18/18 06:53 Dose: 0.5 mg [place] Oil/[place] Balsam/Trypsin (Venelex) 1 appl TP DAILY [facility] Stop: 07/13/18 11:59 Last Admin: 05/15/18 09:05 Dose: 1 appl Diphenhydramine HCl (Benadryl 50 Mg/Ml) 50 mg IVP Q6HR PRN PRN Reason: Anaphylaxis Stop: 07/17/18 10:50 Donepezil HCl (Aricept) 5 mg PO HS [facility] Stop: 07/09/18 20:59 Last Admin: 05/17/18 20:28 Dose: Not Given Ferrous Sulfate (Iron) 325 mg PO DAILY [facility] Stop: 07/09/18 11:59 Last Admin: 05/17/18 08:33 Dose: Not Given Hydrocortisone Sodium Succinate (Solu-Cortef) 100 mg IVP Q8HR [facility] Stop: 07/09/18 12:59 Last Admin: 05/18/18 05:10 Dose: 100 mg Linezolid (Zyvox) 600 mg in 300 mls @ 300 mls/hr IV Q12H [facility] Stop: 07/15/18 14:59 Last Infusion: 05/18/18 05:08 Dose: Infused Norepinephrine Bitartrate 4 mg (/ Dextrose) 254 mls @ 0 mls/hr IV TITR PRN; Protocol PRN Reason: To Keep SBP Above 90 Stop: 07/09/18 00:36 Last Titration: 05/18/18 01:32 Dose: 2 mcg/min, 7.62 mls/hr Potassium Chloride 10 meq/ (Dextrose/Sodium Chloride) 1,005 mls @ 80 mls/hr IV .[id number] [facility] Stop: 07/16/18 11:59 Last Admin: 05/17/18 13:17 Dose: 80 mls/hr Trimethoprim/Sulfamethoxazole (20 ml/ Dextrose) 520 mls @ 250 mls/hr IV Q6H [facility] Stop: 07/16/18 13:59 Last Admin: 05/18/18 08:47 Dose: 250 mls/hr Potassium Chloride (Potassium Chloride) 20 meq in 100 mls @ 50 mls/hr IV Q2H [facility] Stop: 05/18/18 12:59 Lactulose (Cephulac) 20 gm PO TID [facility] Stop: 07/09/18 13:59 Last Admin: 05/17/18 20:28 Dose: Not Given Lorazepam (Ativan) 0.5 mg IV Q6HR PRN; Protocol PRN Reason: Agitation Stop: 07/09/18 00:33 Last Admin: 05/16/18 23:07 Dose: 0.5 mg Lorazepam (Ativan) 0.5 mg PO Q6HR PRN; Protocol PRN Reason: Agitation Stop: 07/09/18 12:10 Magnesium Chloride (Slow-Mag) 1 ect PO DAILY BRANDAN Stop: 07/10/18 08:59 Last Admin: 05/17/18 08:34 Dose: Not Given Metoclopramide HCl (Reglan) 10 mg IVP Q8HR PRN PRN Reason: Abdominal Pain Stop: 07/09/18 12:14 Morphine Sulfate (Morphine) 1 mg IVP Q4H PRN PRN Reason: Severe Pain Stop: 07/09/18 13:47 Ondansetron HCl (Zofran) 4 mg IV Q8H PRN PRN Reason: Nausea / Vomiting Stop: 07/09/18 12:48 Pantoprazole Sodium (Protonix) 40 mg PO DAILY BRANDAN Stop: 07/10/18 11:44 Last Admin: 05/17/18 08:34 Dose: Not Given Trimethoprim/Sulfamethoxazole (Bactrim Iv Per Pharmacy) 1 ea MC PRN BRANDAN Stop: 07/16/18 12:59 General: Other (sedated/intubated) HEENT: Atraumatic Neck: Supple Cardiovascular: Regular rate Lungs: Clear to auscultation Abdomen: Bowel sounds, Soft, no Tender, no Hepatomegaly, no Splenomegaly, no Distended, no Rebound, no Mass - Procedures Procedures: Procedures Procedure Code Date EXCISION OF LOWER ESOPHAGUS, ENDO, DIAGN [id number] 05/09/18 EXCISION OF SCROTUM, OPEN APPROACH [id number] 05/09/18 REPAIR BILATERAL INGUINAL REGION, OPEN APPROACH [id number] 05/09/18 RESPIRATORY VENTILATION, LESS THAN 24 CONSECUTIVE HOURS [id number] 05/09/18 TRANSFUSE NONAUT RED BLOOD CELLS IN PERIPH VEIN, PERC [id number] 05/09/18 Nutritional Asmnt/Malnutr-PDOC - Dietary Evaluation Malnutrition Findings (Please click <Entered> for more info): Nutritional Asmnt/Malnutrition Start: 05/10/18 14: 28 Text: Status: Complete Freq: Protocol: Document 05/10/18 14:29 LCHENG (Rec: 05/10/18 14:39 LCHENG [id number]) Nutritional Asmnt/Malnutrition Patient General Information Nutritional Screening High Risk Diagnosis PNA, hypotension Pertinent Medical Hx/Surgical Hx PNA, COPD, mild alzheimer, PVD , UTI, sepsis Subjective Information Consult received for Tripp score 12. Pt seen resting in bed at time of visit. Per RN, pt is on levophed. pt likes to eat, consumed about 50% of breakfast this morning. Pt took long time to chew food per RN. Current Diet Order/ Nutrition Support cardiac, soft Pertinent Medications Iron, cephulac, piperacillin, nacl 0.9%, vancomycin Pertinent Labs 05/10 Cl 110, glucose 115, Ca 8 .3, alb 2.4 Nutritional Hx/Data Height 1.63 m Height (Calculated Centimeters) 162.6 Current Weight (lbs) 58.967 kg Weight (Calculated Kilograms) 59.0 Weight (Calculated Grams) 60031.0 [place] Body Weight 130 Body Mass Index (BMI) 22.3 Weight Status Approriate GI Symptoms GI Symptoms None Last BM not indicated Difficult in: None Skin Integrity/Comment: scar from old pressure ulcer to sacrum Tripp score 12 Current %PO Fair (50-74%) Estimated Nutritional Goals BEE in Kcals: Using Current wt Calories/Kcals/Kg 27-32 Kcals Calculated 6284-7163 Protein: Using Current wt Protein g/k-1.2 Protein Calculated 59-71 Fluid: ml 1593-1888ml (1ml/kcal) Nutritional Problem 2. Problem Problem increased nutrition needs Etiology increased metabolic demand Signs/Symptoms: dx of PNA 1. Problem Problem altered nutrition relatedl abs Etiology electrolytes imbalance Signs/Symptoms: cl 110, Ca 8.3 Malnutrition Alert Is there a minimum of two criteria No selected? Query Text:Check all the applicable criteria. A minimum of two criteria are recommended for diagnosis of either severe or non-severe malnutrition. Malnutrition Related to Morbid Obesity Malnutrition related to morbid obesity No Intervention/Recommendation Comments 1. Continue with cardiac diet as ordered. [facility]g pt having difficulty of chewing. REENA [place] notified. 2. Monitor PO intake, wt, labs and skin integrity 3. F/U as high risk in 2-3 days, 05/12-05/13 Expected Outcomes/Goals Expected Outcomes/Goals 1. PO intake to meet at least 75% of nutritional needs. 2. Wt stability, skin to remain intact, labs to approach WNL.
--- NOTE | 2018-05-18 13:24 | Diagnostic Imaging Report ---
CHEST X-RAY: AP view INDICATION: Central line placement COMPARISON: Chest x-ray earlier the same day FINDINGS: Left subclavian central line is seen with tip along the proximal left brachiocephalic vein. Findings of CHF are seen bilateral effusions and infiltrates. No pneumothorax. Cardiomegaly is noted. Gas-filled loops of bowel the upper abdomen are noted. IMPRESSION: Left subclavian central line with tip along the region of proximal left brachiocephalic vein. No evidence of pneumothorax. Persistent CHF.
[2018-05-18] MEDS: Potassium Chloride 10 MEQ in D5-0.9%NS 1,000 ML IV SCH (15:51)
--- NOTE | 2018-05-18 17:36 | Operative Report ---
DATE OF SURGERY: 05/18/2018 PREOPERATIVE DIAGNOSES: 1. Status post colon resection for obstruction. 2. Bilateral hernia repair. 3. Alzheimer disease. 4. Peripheral vascular disease. POSTOPERATIVE DIAGNOSES: 1. Status post colon resection for obstruction. 2. Bilateral hernia repair. 3. Alzheimer disease. 4. Peripheral vascular disease. OPERATION DONE: Insertion of central line, left subclavian vein under ultrasound guidance. Informed consent discussed with the son prior to the procedure, possible risks, complications were discussed. DESCRIPTION OF PROCEDURE: The left chest was prepped with ChloraPrep and draped in appropriate manner. Once the lidocaine was used to infiltrate the area identified on ultrasound. An incision was made and size 18 needle was used to locate the vein. Guide was inserted, the dilator and then the triple lumen catheter. This anchored to chest wall with 2-0 silk. Portable chest x-ray will be ordered. JOB# [id number]
--- NOTE | 2018-05-18 17:43 | GI Progress Note ---
Subjective - Review of Systems Service Date: 05/18/18 Events since last encounter: No acute events no overt bleeding GI davies Objective - Results Result Diagrams: 05/18/18 04:35 05/18/18 04:35 Recent Labs: Laboratory Last Values WBC 10.2 Th/cmm (4.8-10.8) 05/18/18 04:35 RBC 2.36 Mil/cmm (3.80-5.80) L 05/18/18 04:35 Hgb 6.8 gm/dL (12-16) L* D 05/18/18 04:35 Hct 19.9 % (41.0-60) L* D 05/18/18 04:35 MCV 84.2 fl (80-99) 05/18/18 04:35 MCH 28.8 pg (27.0-31.0) 05/18/18 04:35 MCHC Differential 34.2 pg (28.0-36.0) 05/18/18 04:35 RDW 17.6 % (11.5-20.0) 05/18/18 04:35 Plt Count 196 Th/cmm (150-400) D 05/18/18 04:35 MPV 7.0 fl 05/18/18 04:35 Add Manual Diff YES 05/18/18 04:35 Band Neutrophils % 4 % (0-10) 05/18/18 04:35 Neutrophils (Manual) 90 % (40-80) H 05/18/18 04:35 Lymphocytes 4 % (20-50) L 05/18/18 04:35 Monocytes 2 % (2-10) 05/18/18 04:35 Eosinophils 0 % (0-5) 05/16/18 04:30 Basophils 0 % (0-3) 05/16/18 04:30 Platelet Estimate ADEQUATE (NORMAL) 05/18/18 04:35 Total Retics Counted 1.1 % (0.5-1.5) 05/14/18 04:20 Absolute Retic 35.8 Th/cmm 05/14/18 04:20 Corrected Retic Count 0.7 % (0.5-1.5) 05/14/18 04:20 Plt Count 286 Th/cmm (150-750) 05/11/18 06:10 PT 12.1 SECONDS (9.5-11.5) H 05/16/18 04:30 INR 1.15 (0.5-1.4) 05/16/18 04:30 PTT (Actin FS) 29.9 SECONDS (26.0-38.0) 05/16/18 04:30 Fibrinogen 348.0 mg/dL (200.0-400.0) 05/11/18 06:10 D-Dimer 979 ng/mL (100-400) H 05/11/18 06:10 Specimen Source Arterial 05/18/18 09:20 Sample Site Left Radial 05/18/18 09:20 pH 7.46 (7.35-7.45) H 05/18/18 09:20 pCO2 32.0 mmHg (35.0-45.0) L 05/18/18 09:20 pO2 74.0 mmHg (80.0-100.0) L 05/18/18 09:20 HCO3 24.6 mEq/L (20.0-26.0) 05/18/18 09:20 Base Excess -0.4 mEq/L (-3.0-3.0) 05/18/18 09:20 O2 Saturation 95.0 % (92.0-100.0) 05/18/18 09:20 Titi Test YES 05/18/18 09:20 Vent Rate NA 05/18/18 09:20 Inspired O2 28 05/18/18 09:20 Tidal Volume NA 05/18/18 09:20 PEEP NA 05/18/18 09:20 Pressure (ins/psv/peep) NA 05/18/18 09:20 Critical Value E.MC 05/18/18 09:20 Sodium 135 mEq/L (136-145) L 05/18/18 04:35 Potassium 3.3 mEq/L (3.5-5.1) L 05/18/18 04:35 Chloride 108 mEq/L (98-107) H 05/18/18 04:35 Carbon Dioxide 19.7 mEq/L (21.0-31.0) L 05/18/18 04:35 Anion Gap 10.6 (7.0-16.0) 05/18/18 04:35 BUN 14 mg/dL (7-25) 05/18/18 04:35 Creatinine 0.8 mg/dL (0.7-1.3) 05/18/18 04:35 Est GFR ( Amer) TNP 05/18/18 04:35 Est GFR (Non-Af Amer) TNP 05/18/18 04:35 BUN/Creatinine Ratio 17.5 05/18/18 04:35 Glucose 182 mg/dL (70-105) H 05/18/18 04:35 POC Glucose 97 MG/DL (70 - 105) 05/16/18 12:19 Hemoglobin A1c % 6.1 % (4.0-6.0) H 05/17/18 05:40 Calcium 7.6 mg/dL (8.6-10.3) L 05/18/18 04:35 Phosphorus 3.9 mg/dL (2.5-5.0) 05/11/18 04:45 Magnesium 2.0 mg/dL (1.9-2.7) 05/11/18 04:45 Iron 17 ug/dL (38-169) L 05/11/18 04:45 TIBC 234 ug/dL (250-450) L 05/11/18 04:45 Iron Saturation 7 % (15-55) L 05/11/18 04:45 Unsaturated IBC 217 ug/dL (111-343) 05/11/18 04:45 Ferritin 76 ng/mL (30-400) 05/11/18 04:45 Total Bilirubin 0.3 mg/dL (0.3-1.0) 05/18/18 04:35 Direct Bilirubin 0.13 mg/dL (0.0-0.2) 05/11/18 04:45 AST 9 U/L (13-39) L 05/18/18 04:35 ALT 6 U/L (7-52) L 05/18/18 04:35 Alkaline Phosphatase 41 U/L (34-104) 05/18/18 04:35 Ammonia 44 umol/L (16-53) 05/17/18 05:40 Troponin I 0.03 ng/mL (0.01-0.05) 05/10/18 04:35 Total Protein 4.1 gm/dL (6.0-8.3) L 05/18/18 04:35 Albumin 1.9 gm/dL (4.2-5.5) L 05/18/18 04:35 Globulin 2.2 gm/dL 05/18/18 04:35 Albumin/Globulin Ratio 0.9 (1.0-1.8) L 05/18/18 04:35 Vitamin B12 982 pg/mL (232-1245) 05/11/18 04:45 Folic Acid 12.7 ng/mL (>3.0) 05/11/18 04:45 Stool Occult Blood POSITIVE (NEGATIVE) H 05/11/18 19:00 Vancomycin Trough 14.1 ug/mL (5-10) H 05/12/18 15:10 Blood Type A POSITIVE 05/18/18 09:34 Rho(D) Type Cancelled 05/18/18 09:34 Antibody Screen NEGATIVE 05/18/18 09:34 Crossmatch See Detail 05/18/18 09:34 BBK History Checked Cancelled 05/18/18 09:34 - Physical Exam Vitals and I&O: Vital Signs Temp 98.8 F 05/18/18 12:00 Pulse 65 05/18/18 14:00 Resp 13 05/18/18 14:00 BP 112/52 05/18/18 14:00 Pulse Ox 97 05/18/18 14:00 Intake & Output 05/17/18 05/18/18 05/18/18 18:59 06:59 18:59 Intake Total 1920.452 7686.746 520 Output Total 775 890 Balance 898.419 1725.746 520 Weight (lbs) 83.098 kg 83.915 kg Intake: Intake, IV Amount 8906.453 5065.746 520 D5lr 1,000 ml @ 80 mls/hr 664 IV .[id number] [facility] Rx#: [id number] KCL 20mEq/100mL Premix 20 100 meq In 100 ml @ 50 mls/ hr IV Q2H [facility] Rx#: [id number] Linezolid 600mg/300mL 600 300 300 mg In 300 ml @ 300 mls/ hr IV Q12H [facility] Rx#: [id number] Norepinephrine 4 mg In 6.096 130.746 Dextrose 5% 250 ml @ Per Protocol IV TITR PRN Rx#: [id number] Potassium Chloride 10 meq 1005 In D5-0.9%Ns 1,000 ml @ 80 mls/hr IV .[id number] [facility] Rx#:[id number] Sulfamethoxazole/ 520 1040 520 Trimethopri 20 ml In Dextrose 5% 500 ml @ 250 mls/hr IV Q6H [facility] Rx#: [id number] Output: Drainage 130 40 RT QUADRANT LUIS 130 40 Urine 645 850 Other: # Bowel Movements 0 1 Weight Source Bedscale Bedscale Active Medications: Current Medications Acetaminophen (Tylenol) 650 mg PO Q4H PRN PRN Reason: Pain Or Fever above 101 Stop: 07/09/18 12:24 Acetaminophen (Tylenol 650mg Supp) 650 mg RC Q6H PRN PRN Reason: Pain or Fever >101 Stop: 07/17/18 10:43 Acetaminophen/Hydrocodone Bitart ([place] 5mg/325mg) 1 tab PO Q4H PRN PRN Reason: Pain (Moderate) Stop: 07/09/18 12:22 Albuterol/Ipratropium (Duoneb Neb) 3 ml HHN Q4H PRN PRN Reason: Wheezing Stop: 07/15/18 20:27 Amiodarone HCl (Cordarone) 150 mg IV STAT PRN PRN PRN Reason: Cardiac Arrhythmia Stop: 07/09/18 12:26 Aspirin (Aspirin Chewable) 81 mg PO DAILY [facility] Stop: 07/10/18 08:59 Last Admin: 05/17/18 08:34 Dose: Not Given Atorvastatin Calcium (Lipitor) 10 mg PO DAILY [facility]; Protocol Stop: 07/10/18 08:59 Last Admin: 05/17/18 08:33 Dose: Not Given Atropine Sulfate (Atropine Syringe) 0.5 mg IVP PRN PRN PRN Reason: Cardiac Arrhythmia Stop: 07/09/18 12:34 Budesonide (Pulmicort) 0.5 mg HHN BIDRT [facility] Stop: 07/16/18 06:59 Last Admin: 05/18/18 06:53 Dose: 0.5 mg [place] Oil/[place] Balsam/Trypsin (Venelex) 1 appl TP DAILY [facility] Stop: 07/13/18 11:59 Last Admin: 05/15/18 09:05 Dose: 1 appl Diphenhydramine HCl (Benadryl 50 Mg/Ml) 50 mg IVP Q6HR PRN PRN Reason: Anaphylaxis Stop: 07/17/18 10:50 Donepezil HCl (Aricept) 5 mg PO HS [facility] Stop: 07/09/18 20:59 Last Admin: 05/17/18 20:28 Dose: Not Given Ferrous Sulfate (Iron) 325 mg PO DAILY [facility] Stop: 07/09/18 11:59 Last Admin: 05/17/18 08:33 Dose: Not Given Hydrocortisone Sodium Succinate (Solu-Cortef) 100 mg IVP Q8HR [facility] Stop: 07/09/18 12:59 Last Admin: 05/18/18 15:23 Dose: 100 mg Linezolid (Zyvox) 600 mg in 300 mls @ 300 mls/hr IV Q12H [facility] Stop: 07/15/18 14:59 Last Admin: 05/18/18 15:52 Dose: 300 mls/hr Norepinephrine Bitartrate 4 mg (/ Dextrose) 254 mls @ 0 mls/hr IV TITR PRN; Protocol PRN Reason: To Keep SBP Above 90 Stop: 07/09/18 00:36 Last Titration: 05/18/18 01:32 Dose: 2 mcg/min, 7.62 mls/hr Potassium Chloride 10 meq/ (Dextrose/Sodium Chloride) 1,005 mls @ 80 mls/hr IV .[id number] [facility] Stop: 07/16/18 11:59 Last Admin: 05/18/18 15:51 Dose: 80 mls/hr Trimethoprim/Sulfamethoxazole (20 ml/ Dextrose) 520 mls @ 250 mls/hr IV Q6H [facility] Stop: 07/16/18 13:59 Last Admin: 05/18/18 15:02 Dose: 250 mls/hr Lactulose (Cephulac) 20 gm PO TID [facility] Stop: 07/09/18 13:59 Last Admin: 05/17/18 20:28 Dose: Not Given Lorazepam (Ativan) 0.5 mg IV Q6HR PRN; Protocol PRN Reason: Agitation Stop: 07/09/18 00:33 Last Admin: 05/16/18 23:07 Dose: 0.5 mg Lorazepam (Ativan) 0.5 mg PO Q6HR PRN; Protocol PRN Reason: Agitation Stop: 07/09/18 12:10 Magnesium Chloride (Slow-Mag) 1 ect PO DAILY [facility] Stop: 07/10/18 08:59 Last Admin: 05/17/18 08:34 Dose: Not Given Metoclopramide HCl (Reglan) 10 mg IVP Q8HR PRN PRN Reason: Abdominal Pain Stop: 07/09/18 12:14 Morphine Sulfate (Morphine) 1 mg IVP Q4H PRN PRN Reason: Severe Pain Stop: 07/09/18 13:47 Ondansetron HCl (Zofran) 4 mg IV Q8H PRN PRN Reason: Nausea / Vomiting Stop: 07/09/18 12:48 Pantoprazole Sodium (Protonix) 40 mg PO DAILY [facility] Stop: 07/10/18 11:44 Last Admin: 05/17/18 08:34 Dose: Not Given Trimethoprim/Sulfamethoxazole (Bactrim Iv Per Pharmacy) 1 ea MC PRN [facility] Stop: 07/16/18 12:59 General: Other (sedated/intubated) HEENT: Atraumatic, PERRLA Neck: Supple Cardiovascular: Regular rate, Normal S1, Normal S2 Lungs: Clear to auscultation Abdomen: Bowel sounds, Soft, no Tender, no Hepatomegaly, no Splenomegaly, no Distended, no Rebound, no Mass - Procedures Procedures: Procedures Procedure Code Date EXCISION OF LOWER ESOPHAGUS, ENDO, DIAGN [id number] 05/09/18 EXCISION OF SCROTUM, OPEN APPROACH [id number] 05/09/18 REPAIR BILATERAL INGUINAL REGION, OPEN APPROACH [id number] 05/09/18 RESPIRATORY VENTILATION, LESS THAN 24 CONSECUTIVE HOURS [id number] 05/09/18 TRANSFUSE NONAUT RED BLOOD CELLS IN PERIPH VEIN, PERC 38346Y9 05/09/18 Assessment/Plan - Assessment Assessment: Assessment: 1. ANEMIA, MULTIFACTORIAL. 2. FOBT POSITIVE. 3. DEMENTIA. 4. H/O A FIB, HTN. 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 Atalissa was not possible as pt did not drink his prep. Plan: 1. Atalissa can be done electively as outpt. Pt may be able to have easier bowel preps outside of the hospital 2. MONITOR HGB; TRANSFUSE PRN. 3. DIET ANAID. 4. follow up gastric biopsies
[2018-05-18] MEDS: KCL 20mEq/100mL Premix 20 MEQ/100 ML PIGGYBACK IV SCH ×2 (18:03→20:25)
[2018-05-18 22:21] LABS: HEMOGLOBIN 8.6 gm/dL (12-16); MEAN CELL VOLUME 88.2 fl (80-99); MEAN CORPUSCULAR HEMOGLOBIN 29.4 pg (27.0-31.0); MEAN CORPUSCULAR HGB CONC 33.3 pg (28.0-36.0); MEAN PLATELET VOLUME 7.1 fl; PLATELET COUNT 162 Th/cmm (150-400); RED BLOOD COUNT 2.93 Mil/cmm (3.80-5.80); RED CELL DISTRIBUTION WIDTH 19.4 % (11.5-20.0); WHITE BLOOD COUNT 9.7 Th/cmm (4.8-10.8)
[2018-05-18 22:34] LABS: ALB/GLOB RATIO 0.9 (1.0-1.8); ALKALINE PHOSPHATASE 43 U/L (34-104); ANION GAP 11.5 (7.0-16.0); BILIRUBIN,TOTAL 0.3 mg/dL (0.3-1.0); BUN - UREA NITROGEN 11 mg/dL (7-25); CALCIUM SERUM 7.8 mg/dL (8.6-10.3); CARBON DIOXIDE 20.2 mEq/L (21.0-31.0); CHLORIDE 106 mEq/L (98-107); CREATININE - SERUM 0.8 mg/dL (0.7-1.3); GLUCOSE 156 mg/dL (70-105); MAGNESIUM 1.6 mg/dL (1.9-2.7); POTASSIUM SERUM 3.7 mEq/L (3.5-5.1); SGOT 8 U/L (13-39); SGPT/ALT 7 U/L (7-52); SODIUM SERUM 134 mEq/L (136-145); TOTAL PROTEIN,SERUM 4.2 gm/dL (6.0-8.3)
[2018-05-18 22:36] LABS: HEMATOCRIT 25.9 % (41.0-60)
[2018-05-18 22:40] LABS: BAND NEUTROPHILE 3 % (0-10); LYMPHOCYTE 4 % (20-50); MONOCYTE 2 % (2-10); NEUTROPHILS 91 % (40-80); PLATELET ESTIMATE ADEQUATE (NORMAL)
[2018-05-18] MEDS ORDERED: Mag Sulfate 2gm/50mL Premix 2 GM/50 ML BAG IV ONE (23:01)
--- NOTE | 2018-05-18 23:41 | Internal Medicine Prog Note ---
Internal Medicine Subjective - Subjective Service Date: 05/18/18 Patient seen and examined:: with staff Patient is:: asleep, eyes closed, in bed Per staff patient has:: no adverse event, other (s/p bl Inguinal hernia repair, intubated.) Internal Medicine Objective - Results Result Diagrams: 05/18/18 22:10 05/18/18 22:10 Recent Labs: Laboratory Last Values WBC 9.7 Th/cmm (4.8-10.8) 05/18/18 22:10 RBC 2.93 Mil/cmm (3.80-5.80) L 05/18/18 22:10 Hgb 8.6 gm/dL (12-16) L 05/18/18 22:10 Hct 25.9 % (41.0-60) L D 05/18/18 22:10 MCV 88.2 fl (80-99) 05/18/18 22:10 MCH 29.4 pg (27.0-31.0) 05/18/18 22:10 MCHC Differential 33.3 pg (28.0-36.0) 05/18/18 22:10 RDW 19.4 % (11.5-20.0) 05/18/18 22:10 Plt Count 162 Th/cmm (150-400) 05/18/18 22:10 MPV 7.1 fl 05/18/18 22:10 Add Manual Diff YES 05/18/18 22:10 Band Neutrophils % 3 % (0-10) 05/18/18 22:10 Neutrophils (Manual) 91 % (40-80) H 05/18/18 22:10 Lymphocytes 4 % (20-50) L 05/18/18 22:10 Monocytes 2 % (2-10) 05/18/18 22:10 Eosinophils 0 % (0-5) 05/16/18 04:30 Basophils 0 % (0-3) 05/16/18 04:30 Platelet Estimate ADEQUATE (NORMAL) 05/18/18 22:10 Total Retics Counted 1.1 % (0.5-1.5) 05/14/18 04:20 Absolute Retic 35.8 Th/cmm 05/14/18 04:20 Corrected Retic Count 0.7 % (0.5-1.5) 05/14/18 04:20 Plt Count 286 Th/cmm (150-750) 05/11/18 06:10 PT 12.1 SECONDS (9.5-11.5) H 05/16/18 04:30 INR 1.15 (0.5-1.4) 05/16/18 04:30 PTT (Actin FS) 29.9 SECONDS (26.0-38.0) 05/16/18 04:30 Fibrinogen 348.0 mg/dL (200.0-400.0) 05/11/18 06:10 D-Dimer 979 ng/mL (100-400) H 05/11/18 06:10 Specimen Source Arterial 05/18/18 09:20 Sample Site Left Radial 05/18/18 09:20 pH 7.46 (7.35-7.45) H 05/18/18 09:20 pCO2 32.0 mmHg (35.0-45.0) L 05/18/18 09:20 pO2 74.0 mmHg (80.0-100.0) L 05/18/18 09:20 HCO3 24.6 mEq/L (20.0-26.0) 05/18/18 09:20 Base Excess -0.4 mEq/L (-3.0-3.0) 05/18/18 09:20 O2 Saturation 95.0 % (92.0-100.0) 05/18/18 09:20 Titi Test YES 05/18/18 09:20 Vent Rate NA 05/18/18 09:20 Inspired O2 28 05/18/18 09:20 Tidal Volume NA 05/18/18 09:20 PEEP NA 05/18/18 09:20 Pressure (ins/psv/peep) NA 05/18/18 09:20 Critical Value E.MC 05/18/18 09:20 Sodium 134 mEq/L (136-145) L 05/18/18 22:10 Potassium 3.7 mEq/L (3.5-5.1) 05/18/18 22:10 Chloride 106 mEq/L (98-107) 05/18/18 22:10 Carbon Dioxide 20.2 mEq/L (21.0-31.0) L 05/18/18 22:10 Anion Gap 11.5 (7.0-16.0) 05/18/18 22:10 BUN 11 mg/dL (7-25) 05/18/18 22:10 Creatinine 0.8 mg/dL (0.7-1.3) 05/18/18 22:10 Est GFR ( Amer) TNP 05/18/18 22:10 Est GFR (Non-Af Amer) TNP 05/18/18 22:10 BUN/Creatinine Ratio 13.8 05/18/18 22:10 Glucose 156 mg/dL (70-105) H 05/18/18 22:10 POC Glucose 97 MG/DL (70 - 105) 05/16/18 12:19 Hemoglobin A1c % 6.1 % (4.0-6.0) H 05/17/18 05:40 Calcium 7.8 mg/dL (8.6-10.3) L 05/18/18 22:10 Phosphorus 3.9 mg/dL (2.5-5.0) 05/11/18 04:45 Magnesium 1.6 mg/dL (1.9-2.7) L 05/18/18 22:10 Iron 17 ug/dL (38-169) L 05/11/18 04:45 TIBC 234 ug/dL (250-450) L 05/11/18 04:45 Iron Saturation 7 % (15-55) L 05/11/18 04:45 Unsaturated IBC 217 ug/dL (111-343) 05/11/18 04:45 Ferritin 76 ng/mL (30-400) 05/11/18 04:45 Total Bilirubin 0.3 mg/dL (0.3-1.0) 05/18/18 22:10 Direct Bilirubin 0.13 mg/dL (0.0-0.2) 05/11/18 04:45 AST 8 U/L (13-39) L 05/18/18 22:10 ALT 7 U/L (7-52) 05/18/18 22:10 Alkaline Phosphatase 43 U/L (34-104) 05/18/18 22:10 Ammonia 44 umol/L (16-53) 05/17/18 05:40 Troponin I 0.03 ng/mL (0.01-0.05) 05/10/18 04:35 Total Protein 4.2 gm/dL (6.0-8.3) L 05/18/18 22:10 Albumin 2.0 gm/dL (4.2-5.5) L 05/18/18 22:10 Globulin 2.2 gm/dL 05/18/18 22:10 Albumin/Globulin Ratio 0.9 (1.0-1.8) L 05/18/18 22:10 Vitamin B12 982 pg/mL (232-1245) 05/11/18 04:45 Folic Acid 12.7 ng/mL (>3.0) 05/11/18 04:45 Stool Occult Blood POSITIVE (NEGATIVE) H 05/11/18 19:00 Vancomycin Trough 14.1 ug/mL (5-10) H 05/12/18 15:10 Blood Type A POSITIVE 05/18/18 09:34 Rho(D) Type Cancelled 05/18/18 09:34 Antibody Screen NEGATIVE 05/18/18 09:34 Crossmatch See Detail 05/18/18 09:34 BBK History Checked Cancelled 05/18/18 09:34 - Physical Exam Vitals and I&O: Vital Signs Temp 97.9 F 05/18/18 23:00 Pulse 81 05/18/18 23:00 Resp 14 05/18/18 23:00 BP 126/78 05/18/18 23:00 Pulse Ox 95 05/18/18 23:00 Intake & Output 05/18/18 05/18/18 05/19/18 06:59 18:59 06:59 Intake Total 2515.878 1340 620 Output Total 890 1090 Balance 1625.878 250 620 Weight (lbs) 83.915 kg 83.915 kg Intake: Intake, IV Amount 2515.878 1340 620 KCL 20mEq/100mL Premix 20 100 meq In 100 ml @ 50 mls/ hr IV Q2H [facility] Rx#: [id number] Linezolid 600mg/300mL 600 300 300 mg In 300 ml @ 300 mls/ hr IV Q12H [facility] Rx#: [id number] Norepinephrine 4 mg In 170.878 Dextrose 5% 250 ml @ Per Protocol IV TITR PRN Rx#: [id number] Potassium Chloride 10 meq 1005 In D5-0.9%Ns 1,000 ml @ 80 mls/hr IV .[id number] [facility] Rx#:[id number] Sulfamethoxazole/ 1040 1040 520 Trimethopri 20 ml In Dextrose 5% 500 ml @ 250 mls/hr IV Q6H [facility] [place] Rx#: [id number] Output: Drainage 40 40 RT QUADRANT LUIS 40 40 Urine 850 1050 Other: # Bowel Movements 1 Weight Source Bedscale Bedscale Active Medications: Current Medications Acetaminophen (Tylenol) 650 mg PO Q4H PRN PRN Reason: Pain Or Fever above 101 Stop: 07/09/18 12:24 Acetaminophen (Tylenol 650mg Supp) 650 mg RC Q6H PRN PRN Reason: Pain or Fever >101 Stop: 07/17/18 10:43 Acetaminophen/Hydrocodone Bitart ([place] 5mg/325mg) 1 tab PO Q4H PRN PRN Reason: Pain (Moderate) Stop: 07/09/18 12:22 Albuterol/Ipratropium (Duoneb Neb) 3 ml HHN Q4H PRN PRN Reason: Wheezing Stop: 07/15/18 20:27 Last Admin: 05/18/18 19:09 Dose: 3 ml Amiodarone HCl (Cordarone) 150 mg IV STAT PRN PRN PRN Reason: Cardiac Arrhythmia Stop: 07/09/18 12:26 Aspirin (Aspirin Chewable) 81 mg PO DAILY [facility] [place] Stop: 07/10/18 08:59 Last Admin: 05/18/18 09:00 Dose: Not Given Atorvastatin Calcium (Lipitor) 10 mg PO DAILY [facility] [place]; Protocol Stop: 07/10/18 08:59 Last Admin: 05/18/18 09:00 Dose: Not Given Atropine Sulfate (Atropine Syringe) 0.5 mg IVP PRN PRN PRN Reason: Cardiac Arrhythmia Stop: 07/09/18 12:34 Budesonide (Pulmicort) 0.5 mg HHN BIDRT [facility] [place] Stop: 07/16/18 06:59 Last Admin: 05/18/18 19:09 Dose: 0.5 mg [place] Oil/[place] Balsam/Trypsin (Venelex) 1 appl TP DAILY [facility] [place] Stop: 07/13/18 11:59 Last Admin: 05/18/18 09:00 Dose: 1 appl Diphenhydramine HCl (Benadryl 50 Mg/Ml) 50 mg IVP Q6HR PRN PRN Reason: Anaphylaxis Stop: 07/17/18 10:50 Donepezil HCl (Aricept) 5 mg PO HS [facility] [place] Stop: 07/09/18 20:59 Last Admin: 05/18/18 20:55 Dose: Not Given Ferrous Sulfate (Iron) 325 mg PO DAILY [facility] Stop: 07/09/18 11:59 Last Admin: 05/18/18 09:00 Dose: Not Given Hydrocortisone Sodium Succinate (Solu-Cortef) 100 mg IVP Q8HR [facility] Stop: 07/09/18 12:59 Last Admin: 05/18/18 20:47 Dose: 100 mg Linezolid (Zyvox) 600 mg in 300 mls @ 300 mls/hr IV Q12H [facility] Stop: 07/15/18 14:59 Last Infusion: 05/18/18 18:25 Dose: Infused Norepinephrine Bitartrate 4 mg (/ Dextrose) 254 mls @ 0 mls/hr IV TITR PRN; Protocol PRN Reason: To Keep SBP Above 90 Stop: 07/09/18 00:36 Last Titration: 05/18/18 06:56 Dose: Infused Potassium Chloride 10 meq/ (Dextrose/Sodium Chloride) 1,005 mls @ 80 mls/hr IV .[id number] [facility] [place] Stop: 07/16/18 11:59 Last Admin: 05/18/18 15:51 Dose: 80 mls/hr Trimethoprim/Sulfamethoxazole (20 ml/ Dextrose) 520 mls @ 250 mls/hr IV Q6H [facility] Stop: 07/16/18 13:59 Last Infusion: 05/18/18 22:47 Dose: Infused Magnesium Sulfate (Magnesium Sulfate Premix) 2 gm in 50 mls @ 25 mls/hr IV X1 ONE Stop: 05/19/18 01:00 Lactulose (Cephulac) 20 gm PO TID [facility] Stop: 07/09/18 13:59 Last Admin: 05/18/18 20:55 Dose: Not Given Lorazepam (Ativan) 0.5 mg IV Q6HR PRN; Protocol PRN Reason: Agitation Stop: 07/09/18 00:33 Last Admin: 05/16/18 23:07 Dose: 0.5 mg Lorazepam (Ativan) 0.5 mg PO Q6HR PRN; Protocol PRN Reason: Agitation Stop: 07/09/18 12:10 Magnesium Chloride (Slow-Mag) 1 ect PO DAILY [facility] [place] Stop: 07/10/18 08:59 Last Admin: 05/18/18 09:00 Dose: Not Given Metoclopramide HCl (Reglan) 10 mg IVP Q8HR PRN PRN Reason: Abdominal Pain Stop: 07/09/18 12:14 Morphine Sulfate (Morphine) 1 mg IVP Q4H PRN PRN Reason: Severe Pain Stop: 07/09/18 13:47 Ondansetron HCl (Zofran) 4 mg IV Q8H PRN PRN Reason: Nausea / Vomiting Stop: 07/09/18 12:48 Pantoprazole Sodium (Protonix) 40 mg PO DAILY [facility] Stop: 07/10/18 11:44 Last Admin: 05/18/18 09:00 Dose: Not Given Trimethoprim/Sulfamethoxazole (Bactrim Iv Per Pharmacy) 1 ea MC PRN [facility] Stop: 07/16/18 12:59 General: weak, lethargic, congested HEENT: NC/AT Neck: Supple, No JVD, No thyromegaly, No LAD Lungs: wheezing, ronchi Cardiovascular: other (iregular.) Abdomen: soft, non-tender, non-distended, positive bowel sound Extremities: clear - Procedures Procedures: Procedures Procedure Code Date EXCISION OF LOWER ESOPHAGUS, ENDO, DIAGN [id number] 05/09/18 EXCISION OF SCROTUM, OPEN APPROACH [id number] 05/09/18 REPAIR BILATERAL INGUINAL REGION, OPEN APPROACH [id number] 05/09/18 RESPIRATORY VENTILATION, LESS THAN 24 CONSECUTIVE HOURS [id number] 05/09/18 TRANSFUSE NONAUT RED BLOOD CELLS IN PERIPH VEIN, PERC [id number] 05/09/18 Internal Medicine Assmt/Plan - Assessment Assessment: Severe Anemia: multifactorial; s/p 2 u PRBC; close monitoring. Sepsis: IVPB ABX, off Levaphed drip. Acute Leukocytosis: resolving, continue ABX; repeat CBC in AM. Hypokalemia: supplemented s/p bl. inguinal hernia repair. ALOC: on and off, observe closely in ICU. S/P EGD today: gastritis; esophagitis. Rt Scrotal abscess with drainage: G/s, C&S ordered; Surgical consult appreciated. PNA: IVPB ABX. CAD: s/p OK h/o A. Fib: rate controlled. PVD Nutritional Asmnt/Malnutr-PDOC - Dietary Evaluation Malnutrition Findings (Please click <Entered> for more info): Nutritional Asmnt/Malnutrition Start: 05/10/18 14: 28 Text: Status: Complete Freq: Protocol: Document 05/10/18 14:29 [email or web address] (Rec: 05/10/18 14:39 [email or web address]) Nutritional Asmnt/Malnutrition Patient General Information Nutritional Screening High Risk Diagnosis PNA, hypotension Pertinent Medical Hx/Surgical Hx PNA, COPD, mild alzheimer, PVD , UTI, sepsis Subjective Information Consult received for Tripp score 12. Pt seen resting in bed at time of visit. Per RN, pt is on levophed. pt likes to eat, consumed about 50% of breakfast this morning. Pt took long time to chew food per RN. Current Diet Order/ Nutrition Support cardiac, soft Pertinent Medications Iron, cephulac, piperacillin, nacl 0.9%, vancomycin Pertinent Labs 05/10 Cl 110, glucose 115, Ca 8 .3, alb 2.4 Nutritional Hx/Data Height 1.63 m Height (Calculated Centimeters) 162.6 Current Weight (lbs) 58.967 kg Weight (Calculated Kilograms) 59.0 Weight (Calculated Grams) 62671.0 [place] Body Weight 130 Body Mass Index (BMI) 22.3 Weight Status Approriate GI Symptoms GI Symptoms None Last BM not indicated Difficult in: None Skin Integrity/Comment: scar from old pressure ulcer to sacrum Tripp score 12 Current %PO Fair (50-74%) Estimated Nutritional Goals BEE in Kcals: Using Current wt Calories/Kcals/Kg 27-32 Kcals Calculated 5708-1592 Protein: Using Current wt Protein g/k-1.2 Protein Calculated 59-71 Fluid: ml 1593-1888ml (1ml/kcal) Nutritional Problem 2. Problem Problem increased nutrition needs Etiology increased metabolic demand Signs/Symptoms: dx of PNA 1. Problem Problem altered nutrition relatedl abs Etiology electrolytes imbalance Signs/Symptoms: cl 110, Ca 8.3 Malnutrition Alert Is there a minimum of two criteria No selected? Query Text:Check all the applicable criteria. A minimum of two criteria are recommended for diagnosis of either severe or non-severe malnutrition. Malnutrition Related to Morbid Obesity Malnutrition related to morbid obesity No Intervention/Recommendation Comments 1. Continue with cardiac diet as ordered. Recommend mech soft ground diet d/g pt having difficulty of chewing. REENA [place] notified. 2. Monitor PO intake, wt, labs and skin integrity 3. F/U as high risk in 2-3 days, 05/12-05/13 Expected Outcomes/Goals Expected Outcomes/Goals 1. PO intake to meet at least 75% of nutritional needs. 2. Wt stability, skin to remain intact, labs to approach WNL.
[2018-05-18] MEDS ORDERED: Albumin 25% 25gm/100mL 25 GM/100 ML BTL IV ONE (23:45)
--- NOTE | 2018-05-19 00:29 | Progress Notes ---
DATE: 05/18/2018 PULMONARY PROGRESS NOTE PROBLEM LIST: 1. Postoperative acute respiratory failure. 2. Status post abdominal surgery with hernia, with bowel obstruction. 3. Possibly underlying chronic obstructive pulmonary disease. SYMPTOMS: The patient was just sedated to put a central line, in no respiratory distress, lying down comfortably with nasal O2. He was extubated yesterday. PHYSICAL EXAMINATION: VITAL SIGNS: Temperature is afebrile, heart rate is in the 80s, blood pressure 152/87. NECK: Veins not visualized. CHEST: Shows diminished air entry at the bases, otherwise unremarkable. HEART: Regular. ABDOMEN: Soft, nontender. LABORATORY DATA: The patient's white count is 10.2, hemoglobin 6.8. ABG, pO2 is 74, on 2 liters per minute. RADIOLOGY: Chest x-ray shows generalized haziness, most likely layering effusion, doubt congestive heart failure, this may be third-spacing. ASSESSMENT: The patient is clinically improving, improved respiratory status post extubation, underlying chronic obstructive pulmonary disease, bilateral effusion layering, history of recent anemia. PLANS AND SUGGESTIONS: Discussed with the nursing staff. We will go ahead and start nutrition as soon as possible and will follow up on the lab tests in the next few days' time and go from there. JOB# [id number]
[2018-05-19] MEDS: SULFAMETHOXAZOLE IV SCH ×4 (01:47→19:22)
[2018-05-19] MEDS: DEXTROSE IV SCH ×4 (01:47→19:22)
[2018-05-19] MEDS: TRIMETHOPRI IV SCH ×4 (01:47→19:22)
[2018-05-19] MEDS: Linezolid 600mg/300mL 600 MG/300 ML BAG IV SCH ×2 (04:06→15:40)
[2018-05-19] MEDS: Hydrocortisone Sodium Succ 100 mg Vial IVP SCH ×3 (05:13→20:57)
[2018-05-19] MEDS: Budesonide 0.5 Mg/2 mL Ud HHN SCH ×2 (06:00→18:57)
[2018-05-19 06:11] LABS: HEMATOCRIT 25.4 % (41.0-60); HEMOGLOBIN 8.4 gm/dL (12-16); LYMPHOCYTE ABSOLUTE 0.3 Th/cmm (1.5-3.0); MEAN CELL VOLUME 88.3 fl (80-99); MEAN CORPUSCULAR HEMOGLOBIN 29.2 pg (27.0-31.0); MEAN CORPUSCULAR HGB CONC 33.1 pg (28.0-36.0); MEAN PLATELET VOLUME 8.1 fl; MONOCYTE ABSOLUTE 0.3 Th/cmm (0.3-1.0); PLATELET COUNT 153 Th/cmm (150-400); RED BLOOD COUNT 2.87 Mil/cmm (3.80-5.80); RED CELL DISTRIBUTION WIDTH 18.3 % (11.5-20.0); WHITE BLOOD COUNT 9.6 Th/cmm (4.8-10.8)
[2018-05-19 06:23] LABS: ALB/GLOB RATIO 0.9 (1.0-1.8); ALKALINE PHOSPHATASE 44 U/L (34-104); ANION GAP 10.5 (7.0-16.0); BILIRUBIN,TOTAL 0.2 mg/dL (0.3-1.0); BUN - UREA NITROGEN 10 mg/dL (7-25); CALCIUM SERUM 7.6 mg/dL (8.6-10.3); CARBON DIOXIDE 22.6 mEq/L (21.0-31.0); CHLORIDE 104 mEq/L (98-107); CREATININE - SERUM 0.8 mg/dL (0.7-1.3); GLUCOSE 160 mg/dL (70-105); MAGNESIUM 1.8 mg/dL (1.9-2.7); PHOSPHOROUS 1.4 mg/dL (2.5-5.0); POTASSIUM SERUM 3.1 mEq/L (3.5-5.1); SGOT 8 U/L (13-39); SGPT/ALT 7 U/L (7-52); SODIUM SERUM 134 mEq/L (136-145); TOTAL PROTEIN,SERUM 4.2 gm/dL (6.0-8.3)
[2018-05-19 06:38] LABS: ALBUMIN 1.9 gm/dL (4.2-5.5); BILIRUBIN,TOTAL 0.2 mg/dL (0.3-1.0); TOTAL PROTEIN,SERUM 3.9 gm/dL (6.0-8.3)
[2018-05-19 06:54] LABS: BILIRUBIN,DIRECT 0.08 mg/dL (0.0-0.2)
[2018-05-19 07:06] LABS: BAND NEUTROPHILE 2 % (0-10); LYMPHOCYTE 3 % (20-50); MONOCYTE 2 % (2-10); NEUTROPHILS 93 % (40-80); PLATELET ESTIMATE ADEQUATE (NORMAL)
[2018-05-19] MEDS ORDERED: D5-0.9NS w/KCL 20mEq 1,000 ML IV SCH (08:00)
[2018-05-19] MEDS ORDERED: Mag Sulfate 2gm/50mL Premix 2 GM/50 ML BAG IV ONE (08:00)
[2018-05-19] MEDS: Magnesium Chloride EC 64mg Tab PO SCH (08:17)
[2018-05-19] MEDS: Atorvastatin Calcium 10 MG TAB PO SCH (08:17)
[2018-05-19] MEDS: Ferrous Sulfate 325 MG TAB PO SCH (08:17)
[2018-05-19] MEDS: Venelex 60gm Tube TP SCH (08:17)
[2018-05-19] MEDS: Pantoprazole 40 mg EC Tab PO SCH (08:17)
[2018-05-19] MEDS: Lactulose 10 Gm/15 mL 30mL UDC PO SCH ×4 (08:17→21:14)
[2018-05-19] MEDS: Aspirin 81mg Chewable Tab PO SCH (08:17)
--- NOTE | 2018-05-19 08:33 | Diagnostic Imaging Report ---
CHEST X-RAY: AP view INDICATION: Effusion COMPARISON: 05/18/2018 FINDINGS : left-sided subclavian central line is stable. There is slight improvement in CHF and bilateral effusions and infiltrates. Cardiomegaly is noted. Gas-filled loops of bowel the upper abdomen are noted. IMPRESSION: Mild improvement in CHF and bilateral effusions and infiltrates. Cardiomegaly and atherosclerotic vascular disease.
--- NOTE | 2018-05-19 08:45 | GI Progress Note ---
Subjective - Review of Systems Subjective: NO GI BLEEDING PER STAFF Objective - Results Result Diagrams: 05/19/18 04:50 05/19/18 04:50 Recent Labs: Laboratory Last Values WBC 9.6 Th/cmm (4.8-10.8) 05/19/18 04:50 RBC 2.87 Mil/cmm (3.80-5.80) L 05/19/18 04:50 Hgb 8.4 gm/dL (12-16) L 05/19/18 04:50 Hct 25.4 % (41.0-60) L 05/19/18 04:50 MCV 88.3 fl (80-99) 05/19/18 04:50 MCH 29.2 pg (27.0-31.0) 05/19/18 04:50 MCHC Differential 33.1 pg (28.0-36.0) 05/19/18 04:50 RDW 18.3 % (11.5-20.0) 05/19/18 04:50 Plt Count 153 Th/cmm (150-400) 05/19/18 04:50 MPV 8.1 fl 05/19/18 04:50 Add Manual Diff YES 05/19/18 04:50 Band Neutrophils % 2 % (0-10) 05/19/18 04:50 Neutrophils (Manual) 93 % (40-80) H 05/19/18 04:50 Lymphocytes 3 % (20-50) L 05/19/18 04:50 Monocytes 2 % (2-10) 05/19/18 04:50 Eosinophils 0 % (0-5) 05/16/18 04:30 Basophils 0 % (0-3) 05/16/18 04:30 Platelet Estimate ADEQUATE (NORMAL) 05/19/18 04:50 Total Retics Counted 1.1 % (0.5-1.5) 05/14/18 04:20 Absolute Retic 35.8 Th/cmm 05/14/18 04:20 Corrected Retic Count 0.7 % (0.5-1.5) 05/14/18 04:20 Plt Count 286 Th/cmm (150-750) 05/11/18 06:10 PT 12.1 SECONDS (9.5-11.5) H 05/16/18 04:30 INR 1.15 (0.5-1.4) 05/16/18 04:30 PTT (Actin FS) 29.9 SECONDS (26.0-38.0) 05/16/18 04:30 Fibrinogen 348.0 mg/dL (200.0-400.0) 05/11/18 06:10 D-Dimer 979 ng/mL (100-400) H 05/11/18 06:10 Specimen Source Arterial 05/18/18 09:20 Sample Site Left Radial 05/18/18 09:20 pH 7.46 (7.35-7.45) H 05/18/18 09:20 pCO2 32.0 mmHg (35.0-45.0) L 05/18/18 09:20 pO2 74.0 mmHg (80.0-100.0) L 05/18/18 09:20 HCO3 24.6 mEq/L (20.0-26.0) 05/18/18 09:20 Base Excess -0.4 mEq/L (-3.0-3.0) 05/18/18 09:20 O2 Saturation 95.0 % (92.0-100.0) 05/18/18 09:20 Titi Test YES 05/18/18 09:20 Vent Rate NA 05/18/18 09:20 Inspired O2 28 05/18/18 09:20 Tidal Volume NA 05/18/18 09:20 PEEP NA 05/18/18 09:20 Pressure (ins/psv/peep) NA 05/18/18 09:20 Critical Value E.MC 05/18/18 09:20 Sodium 134 mEq/L (136-145) L 05/19/18 04:50 Potassium 3.1 mEq/L (3.5-5.1) L 05/19/18 04:50 Chloride 104 mEq/L (98-107) 05/19/18 04:50 Carbon Dioxide 22.6 mEq/L (21.0-31.0) 05/19/18 04:50 Anion Gap 10.5 (7.0-16.0) 05/19/18 04:50 BUN 10 mg/dL (7-25) 05/19/18 04:50 Creatinine 0.8 mg/dL (0.7-1.3) 05/19/18 04:50 Est GFR ( Amer) TNP 05/19/18 04:50 Est GFR (Non-Af Amer) TNP 05/19/18 04:50 BUN/Creatinine Ratio 12.5 05/19/18 04:50 Glucose 160 mg/dL (70-105) H 05/19/18 04:50 POC Glucose 97 MG/DL (70 - 105) 05/16/18 12:19 Hemoglobin A1c % 6.1 % (4.0-6.0) H 05/17/18 05:40 Calcium 7.6 mg/dL (8.6-10.3) L 05/19/18 04:50 Phosphorus 1.4 mg/dL (2.5-5.0) L 05/19/18 04:50 Magnesium 1.8 mg/dL (1.9-2.7) L 05/19/18 04:50 Iron 17 ug/dL (38-169) L 05/11/18 04:45 TIBC 234 ug/dL (250-450) L 05/11/18 04:45 Iron Saturation 7 % (15-55) L 05/11/18 04:45 Unsaturated IBC 217 ug/dL (111-343) 05/11/18 04:45 Ferritin 76 ng/mL (30-400) 05/11/18 04:45 Total Bilirubin 0.2 mg/dL (0.3-1.0) L 05/19/18 04:50 Direct Bilirubin 0.08 mg/dL (0.0-0.2) 05/19/18 04:50 AST 8 U/L (13-39) L 05/19/18 04:50 ALT 7 U/L (7-52) 05/19/18 04:50 Alkaline Phosphatase 44 U/L (34-104) 05/19/18 04:50 Ammonia 37 umol/L (16-53) 05/19/18 04:50 Troponin I 0.03 ng/mL (0.01-0.05) 05/10/18 04:35 B-Natriuretic Peptide 442.0 pg/mL (5.0-100.0) H 05/19/18 00:15 Total Protein 4.2 gm/dL (6.0-8.3) L 05/19/18 04:50 Albumin 2.0 gm/dL (4.2-5.5) L 05/19/18 04:50 Globulin 2.2 gm/dL 05/19/18 04:50 Albumin/Globulin Ratio 0.9 (1.0-1.8) L 05/19/18 04:50 Vitamin B12 982 pg/mL (232-1245) 05/11/18 04:45 Folic Acid 12.7 ng/mL (>3.0) 05/11/18 04:45 Stool Occult Blood POSITIVE (NEGATIVE) H 05/11/18 19:00 Vancomycin Trough 14.1 ug/mL (5-10) H 05/12/18 15:10 Blood Type A POSITIVE 05/18/18 09:34 Rho(D) Type Cancelled 05/18/18 09:34 Antibody Screen NEGATIVE 05/18/18 09:34 Crossmatch See Detail 05/18/18 09:34 BBK History Checked Cancelled 05/18/18 09:34 - Physical Exam Vitals and I&O: Vital Signs Temp 97.4 F 05/19/18 06:00 Pulse 82 05/19/18 06:01 Resp 18 05/19/18 06:01 BP 107/58 05/19/18 06:00 Pulse Ox 100 05/19/18 06:01 Intake & Output 05/18/18 05/19/18 05/19/18 18:59 06:59 18:59 Intake Total 1340 1680 Output Total 1090 1910 Balance 250 -230 Weight (lbs) 83.915 kg 83.688 kg Intake: Intake, IV Amount 1340 1440 KCL 20mEq/100mL Premix 20 100 meq In 100 ml @ 50 mls/ hr IV Q2H [facility] Rx#: [id number] Linezolid 600mg/300mL 600 300 300 mg In 300 ml @ 300 mls/ hr IV Q12H [facility] Rx#: [id number] Sulfamethoxazole/ 1040 1040 Trimethopri 20 ml In Dextrose 5% 500 ml @ 250 mls/hr IV Q6H [facility] Rx#: [id number] Oral 240 Output: Drainage 40 60 RT QUADRANT LUIS 40 60 Urine 1050 1850 Other: # Bowel Movements 1 Weight Source Bedscale Bedscale Active Medications: Current Medications Acetaminophen (Tylenol) 650 mg PO Q4H PRN PRN Reason: Pain Or Fever above 101 Stop: 07/09/18 12:24 Acetaminophen (Tylenol 650mg Supp) 650 mg RC Q6H PRN PRN Reason: Pain or Fever >101 Stop: 07/17/18 10:43 Acetaminophen/Hydrocodone Bitart ([place] 5mg/325mg) 1 tab PO Q4H PRN PRN Reason: Pain (Moderate) Stop: 07/09/18 12:22 Albuterol/Ipratropium (Duoneb Neb) 3 ml HHN Q4H PRN PRN Reason: Wheezing Stop: 07/15/18 20:27 Last Admin: 05/18/18 19:09 Dose: 3 ml Amiodarone HCl (Cordarone) 150 mg IV STAT PRN PRN PRN Reason: Cardiac Arrhythmia Stop: 07/09/18 12:26 Aspirin (Aspirin Chewable) 81 mg PO DAILY [facility] Stop: 07/10/18 08:59 Last Admin: 05/19/18 08:17 Dose: 81 mg Atorvastatin Calcium (Lipitor) 10 mg PO DAILY [facility]; Protocol Stop: 07/10/18 08:59 Last Admin: 05/19/18 08:17 Dose: 10 mg Atropine Sulfate (Atropine Syringe) 0.5 mg IVP PRN PRN PRN Reason: Cardiac Arrhythmia Stop: 07/09/18 12:34 Budesonide (Pulmicort) 0.5 mg HHN BIDRT [facility] Stop: 07/16/18 06:59 Last Admin: 05/19/18 06:00 Dose: 0.5 mg [place] Oil/[place] Balsam/Trypsin (Venelex) 1 appl TP DAILY [facility] Stop: 07/13/18 11:59 Last Admin: 05/19/18 08:17 Dose: 1 appl Diphenhydramine HCl (Benadryl 50 Mg/Ml) 50 mg IVP Q6HR PRN PRN Reason: Anaphylaxis Stop: 07/17/18 10:50 Donepezil HCl (Aricept) 5 mg PO HS [facility] Stop: 07/09/18 20:59 Last Admin: 05/18/18 20:55 Dose: Not Given Ferrous Sulfate (Iron) 325 mg PO DAILY [facility] Stop: 07/09/18 11:59 Last Admin: 05/19/18 08:17 Dose: 325 mg Hydrocortisone Sodium Succinate (Solu-Cortef) 100 mg IVP Q8HR [facility] Stop: 07/09/18 12:59 Last Admin: 05/19/18 05:13 Dose: 100 mg Linezolid (Zyvox) 600 mg in 300 mls @ 300 mls/hr IV Q12H [facility] Stop: 07/15/18 14:59 Last Infusion: 05/19/18 05:06 Dose: Infused Norepinephrine Bitartrate 4 mg (/ Dextrose) 254 mls @ 0 mls/hr IV TITR PRN; Protocol PRN Reason: To Keep SBP Above 90 Stop: 07/09/18 00:36 Last Titration: 05/18/18 06:56 Dose: Infused Trimethoprim/Sulfamethoxazole (20 ml/ Dextrose) 520 mls @ 250 mls/hr IV Q6H [facility] Stop: 07/16/18 13:59 Last Admin: 05/19/18 08:13 Dose: 250 mls/hr Potassium Chloride/Dextrose/Sod Cl (D5-0.9ns W/Kcl 20meq) 1,000 mls @ 80 mls/ hr IV .[id number] [facility] Stop: 07/18/18 07:59 Last Admin: 05/19/18 08:14 Dose: 80 mls/hr Magnesium Sulfate (Magnesium Sulfate Premix) 2 gm in 50 mls @ 25 mls/hr IV X1 ONE Stop: 05/19/18 09:59 Last Admin: 05/19/18 08:06 Dose: 25 mls/hr Potassium Phosphate 40 mmole/ (Sodium Chloride) 263.3333 mls @ 42.5 mls/hr IV X1 ONE Stop: 05/19/18 15:11 Last Admin: 05/19/18 08:15 Dose: 42.5 mls/hr Lactulose (Cephulac) 20 gm PO TID [facility] Stop: 07/09/18 13:59 Last Admin: 05/19/18 08:17 Dose: 20 gm Lorazepam (Ativan) 0.5 mg IV Q6HR PRN; Protocol PRN Reason: Agitation Stop: 07/09/18 00:33 Last Admin: 05/16/18 23:07 Dose: 0.5 mg Lorazepam (Ativan) 0.5 mg PO Q6HR PRN; Protocol PRN Reason: Agitation Stop: 07/09/18 12:10 Magnesium Chloride (Slow-Mag) 1 ect PO DAILY [facility] Stop: 07/10/18 08:59 Last Admin: 05/19/18 08:17 Dose: 1 ect Metoclopramide HCl (Reglan) 10 mg IVP Q8HR PRN PRN Reason: Abdominal Pain Stop: 07/09/18 12:14 Morphine Sulfate (Morphine) 1 mg IVP Q4H PRN PRN Reason: Severe Pain Stop: 07/09/18 13:47 Ondansetron HCl (Zofran) 4 mg IV Q8H PRN PRN Reason: Nausea / Vomiting Stop: 07/09/18 12:48 Pantoprazole Sodium (Protonix) 40 mg PO DAILY [facility] Stop: 07/10/18 11:44 Last Admin: 05/19/18 08:17 Dose: 40 mg Trimethoprim/Sulfamethoxazole (Bactrim Iv Per Pharmacy) 1 ea MC PRN [facility] Stop: 07/16/18 12:59 General: Other (sedated/intubated) HEENT: Atraumatic, PERRLA Neck: Supple Cardiovascular: Regular rate, Normal S1, Normal S2 Lungs: Clear to auscultation Abdomen: Bowel sounds, Soft, no Tender, no Hepatomegaly, no Splenomegaly, no Distended, no Rebound, no Mass - Procedures Procedures: Procedures Procedure Code Date EXCISION OF LOWER ESOPHAGUS, ENDO, DIAGN [id number] 05/09/18 EXCISION OF SCROTUM, OPEN APPROACH [id number] 05/09/18 REPAIR BILATERAL INGUINAL REGION, OPEN APPROACH [id number] 05/09/18 RESPIRATORY VENTILATION, LESS THAN 24 CONSECUTIVE HOURS [id number] 05/09/18 TRANSFUSE NONAUT RED BLOOD CELLS IN PERIPH VEIN, PERC 59532Y1 05/09/18 Assessment/Plan - Assessment Assessment: 88 YO MALE WITH MULTIPLE MEDICAL PROBLEMS HAS ANEMIA AND OCCULT BLOOD POSITIVE EGD AND COLO WERE CONSIDERED BUT PT IS NOT STABLE FOR PROCEDURE FURTHERMORE THERE IS NOT ACTIVE GI BLEEDING 1.CONT SUPP CARE 2.FOLLOW H/H 3.CONSIDER EGD AND COLO WHEN CONDITION IMPROVES
[2018-05-19] MEDS ORDERED: Potassium Phosphate 40 MMOLE in Sodium Chloride 0.9% 250 ML IV ONE (09:00)
--- NOTE | 2018-05-19 13:11 | General Progress Note ---
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 Abelardo johnson to transer out Objective - Results Result Diagrams: 05/19/18 04:50 05/19/18 04:50 Recent Labs: Laboratory Last Values WBC 9.6 Th/cmm (4.8-10.8) 05/19/18 04:50 RBC 2.87 Mil/cmm (3.80-5.80) L 05/19/18 04:50 Hgb 8.4 gm/dL (12-16) L 05/19/18 04:50 Hct 25.4 % (41.0-60) L 05/19/18 04:50 MCV 88.3 fl (80-99) 05/19/18 04:50 MCH 29.2 pg (27.0-31.0) 05/19/18 04:50 MCHC Differential 33.1 pg (28.0-36.0) 05/19/18 04:50 RDW 18.3 % (11.5-20.0) 05/19/18 04:50 Plt Count 153 Th/cmm (150-400) 05/19/18 04:50 MPV 8.1 fl 05/19/18 04:50 Add Manual Diff YES 05/19/18 04:50 Band Neutrophils % 2 % (0-10) 05/19/18 04:50 Neutrophils (Manual) 93 % (40-80) H 05/19/18 04:50 Lymphocytes 3 % (20-50) L 05/19/18 04:50 Monocytes 2 % (2-10) 05/19/18 04:50 Eosinophils 0 % (0-5) 05/16/18 04:30 Basophils 0 % (0-3) 05/16/18 04:30 Platelet Estimate ADEQUATE (NORMAL) 05/19/18 04:50 Total Retics Counted 1.1 % (0.5-1.5) 05/14/18 04:20 Absolute Retic 35.8 Th/cmm 05/14/18 04:20 Corrected Retic Count 0.7 % (0.5-1.5) 05/14/18 04:20 Plt Count 286 Th/cmm (150-750) 05/11/18 06:10 PT 12.1 SECONDS (9.5-11.5) H 05/16/18 04:30 INR 1.15 (0.5-1.4) 05/16/18 04:30 PTT (Actin FS) 29.9 SECONDS (26.0-38.0) 05/16/18 04:30 Fibrinogen 348.0 mg/dL (200.0-400.0) 05/11/18 06:10 D-Dimer 979 ng/mL (100-400) H 05/11/18 06:10 Specimen Source Arterial 05/18/18 09:20 Sample Site Left Radial 05/18/18 09:20 pH 7.46 (7.35-7.45) H 05/18/18 09:20 pCO2 32.0 mmHg (35.0-45.0) L 05/18/18 09:20 pO2 74.0 mmHg (80.0-100.0) L 05/18/18 09:20 HCO3 24.6 mEq/L (20.0-26.0) 05/18/18 09:20 Base Excess -0.4 mEq/L (-3.0-3.0) 05/18/18 09:20 O2 Saturation 95.0 % (92.0-100.0) 05/18/18 09:20 Titi Test YES 05/18/18 09:20 Vent Rate NA 05/18/18 09:20 Inspired O2 28 05/18/18 09:20 Tidal Volume NA 05/18/18 09:20 PEEP NA 05/18/18 09:20 Pressure (ins/psv/peep) NA 05/18/18 09:20 Critical Value E.MC 05/18/18 09:20 Sodium 134 mEq/L (136-145) L 05/19/18 04:50 Potassium 3.1 mEq/L (3.5-5.1) L 05/19/18 04:50 Chloride 104 mEq/L (98-107) 05/19/18 04:50 Carbon Dioxide 22.6 mEq/L (21.0-31.0) 05/19/18 04:50 Anion Gap 10.5 (7.0-16.0) 05/19/18 04:50 BUN 10 mg/dL (7-25) 05/19/18 04:50 Creatinine 0.8 mg/dL (0.7-1.3) 05/19/18 04:50 Est GFR ( Amer) TNP 05/19/18 04:50 Est GFR (Non-Af Amer) TNP 05/19/18 04:50 BUN/Creatinine Ratio 12.5 05/19/18 04:50 Glucose 160 mg/dL (70-105) H 05/19/18 04:50 POC Glucose 97 MG/DL (70 - 105) 05/16/18 12:19 Hemoglobin A1c % 6.1 % (4.0-6.0) H 05/17/18 05:40 Calcium 7.6 mg/dL (8.6-10.3) L 05/19/18 04:50 Phosphorus 1.4 mg/dL (2.5-5.0) L 05/19/18 04:50 Magnesium 1.8 mg/dL (1.9-2.7) L 05/19/18 04:50 Iron 17 ug/dL (38-169) L 05/11/18 04:45 TIBC 234 ug/dL (250-450) L 05/11/18 04:45 Iron Saturation 7 % (15-55) L 05/11/18 04:45 Unsaturated IBC 217 ug/dL (111-343) 05/11/18 04:45 Ferritin 76 ng/mL (30-400) 05/11/18 04:45 Total Bilirubin 0.2 mg/dL (0.3-1.0) L 05/19/18 04:50 Direct Bilirubin 0.08 mg/dL (0.0-0.2) 05/19/18 04:50 AST 8 U/L (13-39) L 05/19/18 04:50 ALT 7 U/L (7-52) 05/19/18 04:50 Alkaline Phosphatase 44 U/L (34-104) 05/19/18 04:50 Ammonia 37 umol/L (16-53) 05/19/18 04:50 Troponin I 0.03 ng/mL (0.01-0.05) 05/10/18 04:35 B-Natriuretic Peptide 442.0 pg/mL (5.0-100.0) H 05/19/18 00:15 Total Protein 4.2 gm/dL (6.0-8.3) L 05/19/18 04:50 Albumin 2.0 gm/dL (4.2-5.5) L 05/19/18 04:50 Globulin 2.2 gm/dL 05/19/18 04:50 Albumin/Globulin Ratio 0.9 (1.0-1.8) L 05/19/18 04:50 Vitamin B12 982 pg/mL (232-1245) 05/11/18 04:45 Folic Acid 12.7 ng/mL (>3.0) 05/11/18 04:45 Stool Occult Blood POSITIVE (NEGATIVE) H 05/11/18 19:00 Vancomycin Trough 14.1 ug/mL (5-10) H 05/12/18 15:10 Blood Type A POSITIVE 05/18/18 09:34 Rho(D) Type Cancelled 05/18/18 09:34 Antibody Screen NEGATIVE 05/18/18 09:34 Crossmatch See Detail 05/18/18 09:34 BBK History Checked Cancelled 05/18/18 09:34 - Physical Exam Vitals and I&O: Vital Signs Temp 98 F 05/19/18 12:00 Pulse 82 05/19/18 12:00 Resp 13 05/19/18 12:00 BP 100/90 05/19/18 12:00 Pulse Ox 94 05/19/18 12:00 Intake & Output 05/18/18 05/19/18 05/19/18 18:59 06:59 18:59 Intake Total 1340 1680 508.333 Output Total 1090 1910 Balance 250 -230 508.333 Weight (lbs) 83.915 kg 83.688 kg Intake: Intake, IV Amount 1340 1440 508.333 KCL 20mEq/100mL Premix 20 100 meq In 100 ml @ 50 mls/ hr IV Q2H [facility] Rx#: [id number] Linezolid 600mg/300mL 600 300 300 mg In 300 ml @ 300 mls/ hr IV Q12H [facility] Rx#: [id number] Sulfamethoxazole/ 1040 1040 508.333 Trimethopri 20 ml In Dextrose 5% 500 ml @ 250 mls/hr IV Q6H [facility] Rx#: [id number] Oral 240 Output: Drainage 40 60 RT QUADRANT LUIS 40 60 Urine 1050 1850 Other: # Bowel Movements 1 Stool Characteristics Soft Liquid Weight Source Bedscale Bedscale Active Medications: Current Medications Acetaminophen (Tylenol) 650 mg PO Q4H PRN PRN Reason: Pain Or Fever above 101 Stop: 07/09/18 12:24 Acetaminophen (Tylenol 650mg Supp) 650 mg RC Q6H PRN PRN Reason: Pain or Fever >101 Stop: 07/17/18 10:43 Acetaminophen/Hydrocodone Bitart ([place] 5mg/325mg) 1 tab PO Q4H PRN PRN Reason: Pain (Moderate) Stop: 07/09/18 12:22 Albuterol/Ipratropium (Duoneb Neb) 3 ml HHN Q4H PRN PRN Reason: Wheezing Stop: 07/15/18 20:27 Last Admin: 05/18/18 19:09 Dose: 3 ml Amiodarone HCl (Cordarone) 150 mg IV STAT PRN PRN PRN Reason: Cardiac Arrhythmia Stop: 07/09/18 12:26 Aspirin (Aspirin Chewable) 81 mg PO DAILY [facility] Stop: 07/10/18 08:59 Last Admin: 05/19/18 08:17 Dose: 81 mg Atorvastatin Calcium (Lipitor) 10 mg PO DAILY [facility]; Protocol Stop: 07/10/18 08:59 Last Admin: 05/19/18 08:17 Dose: 10 mg Atropine Sulfate (Atropine Syringe) 0.5 mg IVP PRN PRN PRN Reason: Cardiac Arrhythmia Stop: 07/09/18 12:34 Budesonide (Pulmicort) 0.5 mg HHN BIDRT [facility] Stop: 07/16/18 06:59 Last Admin: 05/19/18 06:00 Dose: 0.5 mg [place] Oil/[place] Balsam/Trypsin (Venelex) 1 appl TP DAILY [facility] Stop: 07/13/18 11:59 Last Admin: 05/19/18 08:17 Dose: 1 appl Diphenhydramine HCl (Benadryl 50 Mg/Ml) 50 mg IVP Q6HR PRN PRN Reason: Anaphylaxis Stop: 07/17/18 10:50 Last Admin: 05/19/18 08:50 Dose: 50 mg Donepezil HCl (Aricept) 5 mg PO HS [facility] Stop: 07/09/18 20:59 Last Admin: 05/18/18 20:55 Dose: Not Given Ferrous Sulfate (Iron) 325 mg PO DAILY [facility] Stop: 07/09/18 11:59 Last Admin: 05/19/18 08:17 Dose: 325 mg Hydrocortisone Sodium Succinate (Solu-Cortef) 100 mg IVP Q8HR [facility] Stop: 07/09/18 12:59 Last Admin: 05/19/18 12:48 Dose: 100 mg Linezolid (Zyvox) 600 mg in 300 mls @ 300 mls/hr IV Q12H [facility] Stop: 07/15/18 14:59 Last Infusion: 05/19/18 05:06 Dose: Infused Norepinephrine Bitartrate 4 mg (/ Dextrose) 254 mls @ 0 mls/hr IV TITR PRN; Protocol PRN Reason: To Keep SBP Above 90 Stop: 07/09/18 00:36 Last Titration: 05/18/18 06:56 Dose: Infused Trimethoprim/Sulfamethoxazole (20 ml/ Dextrose) 520 mls @ 250 mls/hr IV Q6H [facility] Stop: 07/16/18 13:59 Last Infusion: 05/19/18 10:15 Dose: 0 mls/hr Potassium Chloride/Dextrose/Sod Cl (D5-0.9ns W/Kcl 20meq) 1,000 mls @ 80 mls/ hr IV .[id number] [facility] Stop: 07/18/18 07:59 Last Admin: 05/19/18 08:14 Dose: 80 mls/hr Potassium Phosphate 40 mmole/ (Sodium Chloride) 263.3333 mls @ 42.5 mls/hr IV X1 ONE Stop: 05/19/18 15:11 Last Admin: 05/19/18 08:15 Dose: 42.5 mls/hr Lactulose (Cephulac) 20 gm PO TID [facility] Stop: 07/09/18 13:59 Last Admin: 05/19/18 08:17 Dose: 20 gm Lorazepam (Ativan) 0.5 mg IV Q6HR PRN; Protocol PRN Reason: Agitation Stop: 07/09/18 00:33 Last Admin: 05/16/18 23:07 Dose: 0.5 mg Lorazepam (Ativan) 0.5 mg PO Q6HR PRN; Protocol PRN Reason: Agitation Stop: 07/09/18 12:10 Magnesium Chloride (Slow-Mag) 1 ect PO DAILY [facility] Stop: 07/10/18 08:59 Last Admin: 05/19/18 08:17 Dose: 1 ect Metoclopramide HCl (Reglan) 10 mg IVP Q8HR PRN PRN Reason: Abdominal Pain Stop: 07/09/18 12:14 Morphine Sulfate (Morphine) 1 mg IVP Q4H PRN PRN Reason: Severe Pain Stop: 07/09/18 13:47 Ondansetron HCl (Zofran) 4 mg IV Q8H PRN PRN Reason: Nausea / Vomiting Stop: 07/09/18 12:48 Pantoprazole Sodium (Protonix) 40 mg PO DAILY [facility] Stop: 07/10/18 11:44 Last Admin: 05/19/18 08:17 Dose: 40 mg Trimethoprim/Sulfamethoxazole (Bactrim Iv Per Pharmacy) 1 ea MC PRN [facility] Stop: 07/16/18 12:59 General: Other (sedated/intubated) HEENT: Atraumatic, PERRLA Neck: Supple Cardiovascular: Regular rate, Normal S1, Normal S2 Lungs: Clear to auscultation Abdomen: Bowel sounds, Soft, no Tender, no Hepatomegaly, no Splenomegaly, no Distended, no Rebound, no Mass - Procedures Procedures: Procedures Procedure Code Date EXCISION OF LOWER ESOPHAGUS, ENDO, DIAGN [id number] 05/09/18 EXCISION OF SCROTUM, OPEN APPROACH [id number] 05/09/18 REPAIR BILATERAL INGUINAL REGION, OPEN APPROACH [id number] 05/09/18 RESPIRATORY VENTILATION, LESS THAN 24 CONSECUTIVE HOURS [id number] 05/09/18 TRANSFUSE NONAUT RED BLOOD CELLS IN PERIPH VEIN, PERC 25924H5 05/09/18 Nutritional Asmnt/Malnutr-PDOC - Dietary Evaluation Malnutrition Findings (Please click <Entered> for more info): Nutritional Asmnt/Malnutrition Start: 05/10/18 14: 28 Text: Status: Complete Freq: Protocol: Document 05/10/18 14:29 WU (Rec: 05/10/18 14:39 WU [email or web address]) Nutritional Asmnt/Malnutrition Patient General Information Nutritional Screening High Risk Diagnosis PNA, hypotension Pertinent Medical Hx/Surgical Hx PNA, COPD, mild alzheimer, PVD , UTI, sepsis Subjective Information Consult received for Tripp score 12. Pt seen resting in bed at time of visit. Per RN, pt is on levophed. pt likes to eat, consumed about 50% of breakfast this morning. Pt took long time to chew food per RN. Current Diet Order/ Nutrition Support cardiac, soft Pertinent Medications Iron, cephulac, piperacillin, nacl 0.9%, vancomycin Pertinent Labs 05/10 Cl 110, glucose 115, Ca 8 .3, alb 2.4 Nutritional Hx/Data Height 1.63 m Height (Calculated Centimeters) 162.6 Current Weight (lbs) 58.967 kg Weight (Calculated Kilograms) 59.0 Weight (Calculated Grams) 10527.0 [place] Body Weight 130 Body Mass Index (BMI) 22.3 Weight Status Approriate GI Symptoms GI Symptoms None Last BM not indicated Difficult in: None Skin Integrity/Comment: scar from old pressure ulcer to sacrum Tripp score 12 Current %PO Fair (50-74%) Estimated Nutritional Goals BEE in Kcals: Using Current wt Calories/Kcals/Kg 27-32 Kcals Calculated 4102-3890 Protein: Using Current wt Protein g/k-1.2 Protein Calculated 59-71 Fluid: ml 1593-1888ml (1ml/kcal) Nutritional Problem 2. Problem Problem increased nutrition needs Etiology increased metabolic demand Signs/Symptoms: dx of PNA 1. Problem Problem altered nutrition relatedl abs Etiology electrolytes imbalance Signs/Symptoms: cl 110, Ca 8.3 Malnutrition Alert Is there a minimum of two criteria No selected? Query Text:Check all the applicable criteria. A minimum of two criteria are recommended for diagnosis of either severe or non-severe malnutrition. Malnutrition Related to Morbid Obesity Malnutrition related to morbid obesity No Intervention/Recommendation Comments 1. Continue with cardiac diet as ordered. Recommend [facility] soft ground diet d/g pt having difficulty of chewing. RN Vivi notified. 2. Monitor PO intake, wt, labs and skin integrity 3. F/U as high risk in 2-3 days, 05/12-05/13 Expected Outcomes/Goals Expected Outcomes/Goals 1. PO intake to meet at least 75% of nutritional needs. 2. Wt stability, skin to remain intact, labs to approach WNL.
--- NOTE | 2018-05-19 22:36 | Internal Medicine Prog Note ---
Internal Medicine Subjective - Subjective Service Date: 05/19/18 (Pt was seen earlier.) Patient seen and examined:: without staff Patient is:: asleep, eyes closed, in bed Per staff patient has:: no adverse event, other (s/p bl Inguinal hernia repair, intubated.) Internal Medicine Objective - Results Result Diagrams: 05/19/18 04:50 05/19/18 04:50 Recent Labs: Laboratory Last Values WBC 9.6 Th/cmm (4.8-10.8) 05/19/18 04:50 RBC 2.87 Mil/cmm (3.80-5.80) L 05/19/18 04:50 Hgb 8.4 gm/dL (12-16) L 05/19/18 04:50 Hct 25.4 % (41.0-60) L 05/19/18 04:50 MCV 88.3 fl (80-99) 05/19/18 04:50 MCH 29.2 pg (27.0-31.0) 05/19/18 04:50 MCHC Differential 33.1 pg (28.0-36.0) 05/19/18 04:50 RDW 18.3 % (11.5-20.0) 05/19/18 04:50 Plt Count 153 Th/cmm (150-400) 05/19/18 04:50 MPV 8.1 fl 05/19/18 04:50 Add Manual Diff YES 05/19/18 04:50 Band Neutrophils % 2 % (0-10) 05/19/18 04:50 Neutrophils (Manual) 93 % (40-80) H 05/19/18 04:50 Lymphocytes 3 % (20-50) L 05/19/18 04:50 Monocytes 2 % (2-10) 05/19/18 04:50 Eosinophils 0 % (0-5) 05/16/18 04:30 Basophils 0 % (0-3) 05/16/18 04:30 Platelet Estimate ADEQUATE (NORMAL) 05/19/18 04:50 Total Retics Counted 1.1 % (0.5-1.5) 05/14/18 04:20 Absolute Retic 35.8 Th/cmm 05/14/18 04:20 Corrected Retic Count 0.7 % (0.5-1.5) 05/14/18 04:20 Plt Count 286 Th/cmm (150-750) 05/11/18 06:10 PT 12.1 SECONDS (9.5-11.5) H 05/16/18 04:30 INR 1.15 (0.5-1.4) 05/16/18 04:30 PTT (Actin FS) 29.9 SECONDS (26.0-38.0) 05/16/18 04:30 Fibrinogen 348.0 mg/dL (200.0-400.0) 05/11/18 06:10 D-Dimer 979 ng/mL (100-400) H 05/11/18 06:10 Specimen Source Arterial 05/18/18 09:20 Sample Site Left Radial 05/18/18 09:20 pH 7.46 (7.35-7.45) H 05/18/18 09:20 pCO2 32.0 mmHg (35.0-45.0) L 05/18/18 09:20 pO2 74.0 mmHg (80.0-100.0) L 05/18/18 09:20 HCO3 24.6 mEq/L (20.0-26.0) 05/18/18 09:20 Base Excess -0.4 mEq/L (-3.0-3.0) 05/18/18 09:20 O2 Saturation 95.0 % (92.0-100.0) 05/18/18 09:20 Titi Test YES 05/18/18 09:20 Vent Rate NA 05/18/18 09:20 Inspired O2 28 05/18/18 09:20 Tidal Volume NA 05/18/18 09:20 PEEP NA 05/18/18 09:20 Pressure (ins/psv/peep) NA 05/18/18 09:20 Critical Value E.MC 05/18/18 09:20 Sodium 134 mEq/L (136-145) L 05/19/18 04:50 Potassium 3.1 mEq/L (3.5-5.1) L 05/19/18 04:50 Chloride 104 mEq/L (98-107) 05/19/18 04:50 Carbon Dioxide 22.6 mEq/L (21.0-31.0) 05/19/18 04:50 Anion Gap 10.5 (7.0-16.0) 05/19/18 04:50 BUN 10 mg/dL (7-25) 05/19/18 04:50 Creatinine 0.8 mg/dL (0.7-1.3) 05/19/18 04:50 Est GFR ( Amer) TNP 05/19/18 04:50 Est GFR (Non-Af Amer) TNP 05/19/18 04:50 BUN/Creatinine Ratio 12.5 05/19/18 04:50 Glucose 160 mg/dL (70-105) H 05/19/18 04:50 POC Glucose 97 MG/DL (70 - 105) 05/16/18 12:19 Hemoglobin A1c % 6.1 % (4.0-6.0) H 05/17/18 05:40 Calcium 7.6 mg/dL (8.6-10.3) L 05/19/18 04:50 Phosphorus 1.4 mg/dL (2.5-5.0) L 05/19/18 04:50 Magnesium 1.8 mg/dL (1.9-2.7) L 05/19/18 04:50 Iron 17 ug/dL (38-169) L 05/11/18 04:45 TIBC 234 ug/dL (250-450) L 05/11/18 04:45 Iron Saturation 7 % (15-55) L 05/11/18 04:45 Unsaturated IBC 217 ug/dL (111-343) 05/11/18 04:45 Ferritin 76 ng/mL (30-400) 05/11/18 04:45 Total Bilirubin 0.2 mg/dL (0.3-1.0) L 05/19/18 04:50 Direct Bilirubin 0.08 mg/dL (0.0-0.2) 05/19/18 04:50 AST 8 U/L (13-39) L 05/19/18 04:50 ALT 7 U/L (7-52) 05/19/18 04:50 Alkaline Phosphatase 44 U/L (34-104) 05/19/18 04:50 Ammonia 37 umol/L (16-53) 05/19/18 04:50 Troponin I 0.03 ng/mL (0.01-0.05) 05/10/18 04:35 B-Natriuretic Peptide 442.0 pg/mL (5.0-100.0) H 05/19/18 00:15 Total Protein 4.2 gm/dL (6.0-8.3) L 05/19/18 04:50 Albumin 2.0 gm/dL (4.2-5.5) L 05/19/18 04:50 Globulin 2.2 gm/dL 05/19/18 04:50 Albumin/Globulin Ratio 0.9 (1.0-1.8) L 05/19/18 04:50 Vitamin B12 982 pg/mL (232-1245) 05/11/18 04:45 Folic Acid 12.7 ng/mL (>3.0) 05/11/18 04:45 Stool Occult Blood POSITIVE (NEGATIVE) H 05/11/18 19:00 Vancomycin Trough 14.1 ug/mL (5-10) H 05/12/18 15:10 Blood Type A POSITIVE 05/18/18 09:34 Rho(D) Type Cancelled 05/18/18 09:34 Antibody Screen NEGATIVE 05/18/18 09:34 Crossmatch See Detail 05/18/18 09:34 BBK History Checked Cancelled 05/18/18 09:34 - Physical Exam Vitals and I&O: Vital Signs Temp 98.4 F 05/19/18 20:00 Pulse 84 05/19/18 21:55 Resp 15 05/19/18 21:55 BP 143/55 05/19/18 21:55 Pulse Ox 94 05/19/18 21:55 Intake & Output 05/19/18 05/19/18 05/20/18 06:59 18:59 06:59 Intake Total 1680 1708.333 Output Total 1910 940 500 Balance -230 768.333 -500 Weight (lbs) 83.688 kg 83.971 kg 83.971 kg Intake: Intake, IV Amount 1440 1328.333 KCL 20mEq/100mL Premix 20 100 meq In 100 ml @ 50 mls/ hr IV Q2H BRANDAN Rx#: [id number] Linezolid 600mg/300mL 600 300 300 mg In 300 ml @ 300 mls/ hr IV Q12H BRANDAN Rx#: [id number] Sulfamethoxazole/ 1040 1028.333 Trimethopri 20 ml In Dextrose 5% 500 ml @ 250 mls/hr IV Q6H BRANDAN Rx#: [id number] Oral 240 380 Output: Drainage 60 40 0 RT QUADRANT LUIS 60 40 0 Urine 1850 900 500 Other: # Bowel Movements 1 0 0 Weight Source Bedscale Bedscale Bedscale General: weak, lethargic, congested HEENT: NC/AT Neck: Supple, No JVD, No thyromegaly, No LAD Lungs: wheezing, ronchi Cardiovascular: other (iregular.) Abdomen: soft, non-tender, non-distended, positive bowel sound Extremities: clear - Procedures Procedures: Procedures Procedure Code Date EXCISION OF LOWER ESOPHAGUS, ENDO, DIAGN [id number] 05/09/18 EXCISION OF SCROTUM, OPEN APPROACH [id number] 05/09/18 REPAIR BILATERAL INGUINAL REGION, OPEN APPROACH [id number] 05/09/18 RESPIRATORY VENTILATION, LESS THAN 24 CONSECUTIVE HOURS [id number] 05/09/18 TRANSFUSE NONAUT RED BLOOD CELLS IN PERIPH VEIN, PERC [id number] 05/09/18 Internal Medicine Assmt/Plan - Assessment Assessment: PNA: IVPB ABX. Respiratory Insufficiency: aspiration precaution is being exercised. Hypokalemia and hypophosphatemia: supplemented CHF vs fluid overload: close monitoring. Severe Anemia: multifactorial; s/p 2 u PRBC; close monitoring. Sepsis: IVPB ABX, off Levaphed drip. Acute Leukocytosis: resolving, continue ABX; repeat CBC in AM. s/p bl. inguinal hernia repair. ALOC: on and off, observe closely in ICU. S/P EGD today: gastritis; esophagitis. Rt Scrotal abscess with drainage: G/s, C&S ordered; Surgical consult appreciated. CAD: s/p [place] h/o A. Fib: rate controlled. PVD Nutritional Asmnt/Malnutr-PDOC - Dietary Evaluation Malnutrition Findings (Please click <Entered> for more info): Nutritional Asmnt/Malnutrition Start: 05/10/18 14: 28 Text: Status: Complete Freq: Protocol: Document 05/10/18 14:29 LCHENG (Rec: 05/10/18 14:39 [email or web address] [id number]) Nutritional Asmnt/Malnutrition Patient General Information Nutritional Screening High Risk Diagnosis PNA, hypotension Pertinent Medical Hx/Surgical Hx PNA, COPD, mild alzheimer, PVD , UTI, sepsis Subjective Information Consult received for Tripp score 12. Pt seen resting in bed at time of visit. Per RN, pt is on levophed. pt likes to eat, consumed about 50% of breakfast this morning. Pt took long time to chew food per RN. Current Diet Order/ Nutrition Support cardiac, soft Pertinent Medications Iron, cephulac, piperacillin, nacl 0.9%, vancomycin Pertinent Labs 05/10 Cl 110, glucose 115, Ca 8 .3, alb 2.4 Nutritional Hx/Data Height 1.63 m Height (Calculated Centimeters) 162.6 Current Weight (lbs) 58.967 kg Weight (Calculated Kilograms) 59.0 Weight (Calculated Grams) 83941.0 [place] Body Weight 130 Body Mass Index (BMI) 22.3 Weight Status Approriate GI Symptoms GI Symptoms None Last BM not indicated Difficult in: None Skin Integrity/Comment: scar from old pressure ulcer to sacrum Tripp score 12 Current %PO Fair (50-74%) Estimated Nutritional Goals BEE in Kcals: Using Current wt Calories/Kcals/Kg 27-32 Kcals Calculated 5040-7818 Protein: Using Current wt Protein g/k-1.2 Protein Calculated 59-71 Fluid: ml 1593-1888ml (1ml/kcal) Nutritional Problem 2. Problem Problem increased nutrition needs Etiology increased metabolic demand Signs/Symptoms: dx of PNA 1. Problem Problem altered nutrition relatedl abs Etiology electrolytes imbalance Signs/Symptoms: cl 110, Ca 8.3 Malnutrition Alert Is there a minimum of two criteria No selected? Query Text:Check all the applicable criteria. A minimum of two criteria are recommended for diagnosis of either severe or non-severe malnutrition. Malnutrition Related to Morbid Obesity Malnutrition related to morbid obesity No Intervention/Recommendation Comments 1. Continue with cardiac diet as ordered. Recommend [facility] soft ground diet d/g pt having difficulty of chewing. RN Vivi notified. 2. Monitor PO intake, wt, labs and skin integrity 3. F/U as high risk in 2-3 days, 05/12-05/13 Expected Outcomes/Goals Expected Outcomes/Goals 1. PO intake to meet at least 75% of nutritional needs. 2. Wt stability, skin to remain intact, labs to approach WNL.
--- NOTE | 2018-05-19 22:36 | Progress Notes ---
DATE: 05/19/2018 PULMONARY/CRITICAL CARE PROGRESS NOTE PROBLEM LIST: 1. Status post acute respiratory failure. 2. Bilateral effusion, mostly third spacing, doubt heart failure. 3. Status post previous history of septic shock. SYMPTOMS: Nil. PHYSICAL EXAMINATION: GENERAL: The patient is much awake, alert, has been put on a clear liquid diet. VITAL SIGNS: On exam, currently lying comfortably on oxygen 2 liters per minute. On exam, T-max 98.0, blood pressure is 96 systolic and above, respirations 15, saturations in high 90s on 2 liters per minute. NECK: Veins not visualized. CHEST: Shows diminished air entry with occasional secretory noise. ABDOMEN: Lower abdominal surgical scar, otherwise unremarkable. EXTREMITIES: Shows no peripheral edema. LABORATORY DATA: Chest x-ray still shows bilateral layering effusion. It seems it is upright, more prominent on today's x-ray. ASSESSMENT: The patient is clinically stable respiratory davies with bilateral effusion, status post abdominal surgery with mechanical ventilation. PLANS AND SUGGESTIONS: Okay for transfer to the [facility] and no active other respiratory care needed except for nocturnal BiPAP. JOB# [id number]
--- NOTE | 2018-05-20 01:42 | Discharge Summary ---
DATE OF DISCHARGE: 05/20/2018 FINAL DIAGNOSES: 1. Severe anemia, received blood transfusion with stabilization. 2. Status post bilateral inguinal hernia repair on 05/16. 3. Resection of cecum and distal ileum with [id number]-yy-dryb anastomosis. 4. Resection of right testicle. 5. Respiratory insufficiency, stabilized. 6. Mixed infection with multidrug coccygeal wound: IVPB antibiotics to be continued. 7. History of atrial fibrillation with rate controlled. 8. Questionable congestive heart failure versus fluid overload. HOSPITAL COURSE: The patient is an 88-year-old male admitted due to severe anemia, hypotension requiring pressor drip. The patient was confused and agitated from time to time during hospitalization. He also has history of atrial fibrillation and peripheral vascular disease. Abdominal CT scan revealed bilateral inguinal hernia. I have mentioned that the patient has had this bilateral inguinal hernia for a long long time and he had always refused to have this operated, but on this admission, he became more confused and the hernia also worsened. The family agreed to have surgery. Postoperatively, the patient remained in the intensive care unit requiring pressor drip and ventilator overnight. The patient's condition stabilized after blood transfusion and he is accepted to [facility]. DISCHARGE CONDITION: Stable. DISPOSITION: [facility]. DISCHARGE MEDICATIONS: Continue medication from here. DIET: Cardiac, pureed diet. ACTIVITY: Bed rest with physical therapy. FOLLOWUP: Same day in [place]. JOB# [id number]
--- NOTE | 2018-05-21 14:28 | Pathology Report ---
[id number] Collection date: 05/16/2018 Surgeon: Dr. Georgie Lopez Specimen Description: 1. Right testicle 2. Cecal mass Gross Description: Part I: Received in formalin is a resection of the right testicle measuring 4.5 x 3.0 x 2.5 cm with a small amount of attached yellow fatty tissue. Sectioning shows the paratesticular tissue to contain a 2.2 cm irregular, firm, duque tumor with extension to the outer surface that shows adhesions. The right testicle is also identified but does not appear to be invaded by the tumor mass. Staff Counselor sections are submitted in six cassettes labeled A1 to A6. Cassette A1 to A4 show the paratesticular tumor and Cassette A5 and A6 show the right testicle. Gross Description: Part II: Received in formal is a partial resection of the right colon consisting of mostly cecum (11 cm. in length) with 5 cm of terminal ileum attached. The cecum has a dilated bulging appearance measuring up to 8.5 cm in diameter, with the outer surface of the cecum and showing multiple fibrous adhesions and areas of induration. Opening the cecum and ascending colon shows a bulging 7.5cm exophytic duque necrotic appearing tumor mass occupying the entire lumen and nearly obstructing. The tumor extends through the muscular wall of the cecum and into the area of adhesions and induration. The proximal and distal mucosal margins consist of terminal ileum and ascending colon and show unremarkable appearing mucosa that are more than 3 cm away from the tumor mass. There are no other lesions appreciated. Staff Counselor sections are submitted in ten cassettes labeled B1 to B10. Cassette B1 shows terminal ileum margin, cassette B2 shows the distal margin, cassette B3 to B5 shows the cecal tumor, B6 to B8 shows tumor extending through the muscular wall/adhesions, cassette B9 shows adjacent uninvolved mucosa, cassette B10 shows the dilated and thinned cecal mucosa. Microscopic Description: Part I: The histologic sections show a portion of atrophic appearing testicle with a paratesticular mass identified consisting of pleomorphic glandular cells forming large sheets of solid tumor, consistent with adenocarcinoma. The testicular tissue is very atrophic in appearance and shows fibrosis as well as chronic inflammation. The infiltrating adenocarcinoma extends to the area of adhesions. Diagnosis: Part I: 1. Infiltrating adenocarcinoma extending through the paratesticular soft tissue and involving an area of adhesions (right orchiectomy). 2. The residual testicular tissue has an atrophic appearance with no apparent tumor involvement. Microscopic Description: Part II: The histologic sections show a moderately differentiated adenocarcinoma comprised of atypical glandular cells growing in solid sheets, consistent with invasive adenocarcinoma of the colon. There is moderate nuclear pleomorphism and atypia with extensive mucinous secretions present, consistent with mucinous adenocarcinoma. The tumor invades through the muscular wall of the cecum and into the area of adhesions that is inked blue as the outer serosal surface. The proximal and distal mucosal margins are negative for tumor involvement. There are no pericecal lymph nodes appreciated. Diagnosis: Part II: 1. 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 2. The tumor invades through the entire thickness of the muscular wall and involves the outer surface of the specimen where there are adhesions. 3. There are no pericolic lymph nodes identified in the specimen. Comment: The tumor measures 7.5 cm in greatest dimension and invades through the muscular wall of the cecum, penetrating the serosal/peritoneal surfaces and invading the paratesticular soft tissue. The cecal tumor is firmly adherent to the right testicle, and apparently had to be extricated from the scrotum due to its location within a large inguinal hernia. The extent of this tumor would be classified as T4 under the TNM staging system. The possibility of lymph node involvement cannot be fully evaluated due the the limited nature of this resection, with no lymph nodes identified in the pericecal and paratesticular soft tissues. JOB# [id number] RON
== END 2018-05-19 21:55 | DRG 853 ==
LOC: ICU 21:21
PROVIDERS: ADMIT Internal Medicine; ATTEND Internal Medicine
PROC: 30233N1 Transfusion of Nonautologous Red Blood Cells into Peripheral Vein, Percutaneous Approach (ICD-10-PCS; principal; 2018-05-10)
PROC: 0DB38ZX Excision of Lower Esophagus, Via Natural or Artificial Opening Endoscopic, Diagnostic (ICD-10-PCS; 2018-05-14)
PROC: 0DB78ZX Excision of Stomach, Pylorus, Via Natural or Artificial Opening Endoscopic, Diagnostic (ICD-10-PCS; 2018-05-14)
PROC: 0YQA0ZZ Repair Bilateral Inguinal Region, Open Approach (ICD-10-PCS; 2018-05-16)
PROC: 0VB50ZZ Excision of Scrotum, Open Approach (ICD-10-PCS; 2018-05-16)
PROC: 5A1935Z Respiratory Ventilation, Less than 24 Consecutive Hours (ICD-10-PCS; 2018-05-16)
PROC: 0DNN0ZZ Release Sigmoid Colon, Open Approach (ICD-10-PCS; 2018-05-16)
PROC: 0DBH0ZZ Excision of Cecum, Open Approach (ICD-10-PCS; 2018-05-16)
PROC: 0DBB0ZZ Excision of Ileum, Open Approach (ICD-10-PCS; 2018-05-16)
PROC: 0VT90ZZ Resection of Right Testis, Open Approach (ICD-10-PCS; 2018-05-16)
PROC: 5A09357 Assistance with Respiratory Ventilation, Less than 24 Consecutive Hours, Continuous Positive Airway Pressure (ICD-10-PCS; 2018-05-18)
PROC: 05H433Z Insertion of Infusion Device into Left Innominate Vein, Percutaneous Approach (ICD-10-PCS; 2018-05-18)
PROC: B54NZZA Ultrasonography of Left Upper Extremity Veins, Guidance (ICD-10-PCS; 2018-05-18)
DX: A41.9 Sepsis, unspecified organism (principal); J18.9 Pneumonia, unspecified organism; G93.41 Metabolic encephalopathy; K29.71 Gastritis, unspecified, with bleeding; J96.00 Acute respiratory failure, unspecified whether with hypoxia or hypercapnia; K40.00 Bilateral inguinal hernia, with obstruction, without gangrene, not specified as recurrent; J44.0 Chronic obstructive pulmonary disease with (acute) lower respiratory infection; Z99.11 Dependence on respirator [ventilator] status; D64.9 Anemia, unspecified; G30.9 Alzheimer's disease, unspecified; F02.80 Dementia in other diseases classified elsewhere, unspecified severity, without behavioral disturbance, psychotic disturbance, mood disturbance, and anxiety; I73.9 Peripheral vascular disease, unspecified; I48.91 Unspecified atrial fibrillation; I25.10 Atherosclerotic heart disease of native coronary artery without angina pectoris; K22.70 Barrett's esophagus without dysplasia; K20.9 Esophagitis, unspecified; N49.2 Inflammatory disorders of scrotum; I25.2 Old myocardial infarction; F41.9 Anxiety disorder, unspecified; K66.0 Peritoneal adhesions (postprocedural) (postinfection); N43.3 Hydrocele, unspecified; K59.09 Other constipation; I49.3 Ventricular premature depolarization; E87.6 Hypokalemia; I50.9 Heart failure, unspecified; Z86.718 Personal history of other venous thrombosis and embolism
CPT/HCPCS: 36415-UA; 36600-90; 71045-TC; 80048-TC; 80053-TC; 80076-TC; 80202-TC; 82140-TC; 82270-TC; 82607-90; 82728-90; 82746-90; 82803-TC; 82948-90; 83036-90; 83540-90; 83550-90; 83735-TC; 83880-TC; 84100-TC; 84132-TC; 84484-TC; 85007-TC; 85025-TC; 85044-TC; 85049-TC; 85379-TC; 85384-TC; 85610-TC; 85730-TC; 86850-TC; 86900-TC; 86901-TC; 86922-TC; 87070; 87070-90; 87075-90; 87205-90; 88305-90; 88312-90; 90799; 93005; 93970-TC-50; 94002; 94640; 94660; 96372; 97530; 99201; J1200; J1644; J1720; J1940; J2020; J2060; J2405; J2543; J2704; J2710; J2916; J3010; J3370; J3475; J3480; J7030; J7040; J7042; J7121; P9016; P9046; V2790; X3904; X5716; X6258; X6452; X6530; X7704; Z7610